=== PATIENT | female | born 1935 | race Caucasian/White ===

== ENCOUNTER 2017-05-13 21:18 | Inpatient (IN) | payer MEDICARE ==
[~2017-05-13] VITALS: Ht 170.2 cm; Wt 73.0 kg
[2017-05-13 21:30] VITALS: BP 129/59; PULSE 90; RESP 18; TEMP 99; O2SAT 98
[2017-05-13] MEDS ORDERED: SODIUM CHLOR 0.9% 1000 ML INJ 1,000 ML IV SCH (21:38)
[2017-05-13] MEDS ORDERED: PANTOPRAZOLE INJ 80 MG in SODIUM CHLORIDE 0.9% INJ 35 ML IV ONE (21:38)
[2017-05-13] MEDS ORDERED: SODIUM CHLORIDE 0.9% FLUSH 10 ML FLUSH IVF PRN (21:45)
--- NOTE | 2017-05-13 21:57 | PD ---
HPI Chief Complaint: GI Complaint Time Seen by Provider: 21:38 Travel History International Travel<30 days: No Contact w/Intl Traveler<30days: No Traveled to known affect area: No History of Present Illness HPI Thin 81 year-old woman who presents from [facility] rehabilitation for dark stools, elevated INR, and low H&H. She is on Coumadin apparently for DVT. Her INR is 4.57 yesterday at 5:30 AM, 3.9 the day before. Hemoglobin was 12.6 on 05/10, 7.7 today. Patient denies any history of GI bleed. Review of records shows that she is on naproxen 250 twice a day, that she is also on fludrocortisone. EMS reports dark black stools per the prison staff. Patient denies any other complaints. History Past Medical History Narrative Medical Hyperlipidemia Major depression Polyneuropathy Stress incontinence Cellulitis Hypertension Heart failure Hypothyroidism Social History Tobacco Use: No Allergies-Medications (Allergen,Severity, Reaction): Coded Allergies: No Known Allergies (Verified Allergy, Unknown, 05/13/17) Reported Meds & Prescriptions Reported Meds & Active Scripts Active Review of Systems ROS Limitations: Clinical Condition Physical Exam Narrative GENERAL: 81 year-old woman, pale appearing, nontoxic. SKIN: Little bit pale. Some bruising to the left upper thigh. Little bit of warmth to the left leg. EYES: Pupils equal and round. No scleral icterus. No injection or drainage. ENT: No nasal bleeding or discharge. Mucous membranes pink and moist. NECK: Trachea midline. No JVD. CARDIOVASCULAR: Heart rates over rapid. Soft blowing murmur. RESPIRATORY: No accessory muscle use. Clear to auscultation. Breath sounds equal bilaterally. GASTROINTESTINAL: Abdomen soft, non-tender, nondistended. Hepatic and splenic margins not palpable. MUSCULOSKELETAL: No obvious deformities. No edema. NEUROLOGICAL: Awake and alert. No obvious cranial nerve deficits. Motor grossly within normal limits. Normal speech. Data Data Last Documented VS Vital Signs Date Time Temp Pulse Resp B/P (MAP) Pulse Ox O2 Delivery O2 Flow Rate FiO2 05/13/17 23:19 101 18 129/51 (77) 95 Room Air 05/13/17 21:30 99.0 Orders Orders Complete Blood Count With Diff (05/13/17 21:38) Comprehensive Metabolic Panel (05/13/17 21:38) Lipase (9/16/17 21:38) Prothrombin Time / Inr (Pt) (05/13/17 21:38) Act Partial Throm Time (Ptt) (05/13/17 21:38) Type And Screen (05/13/17 21:38) Ecg Monitoring (05/13/17 21:38) Iv Access Insert/Monitor (05/13/17 21:38) Oximetry (05/13/17 21:38) Sodium Chlor 0.9% 1000 Ml Inj (Ns 1000 M (05/13/17 21:38) Sodium Chloride 0.9% Flush (Ns Flush) (05/13/17 21:45) Sodium Chloride 0.9... W/Pantoprazole In (05/13/17 21:38) Sodium Chloride 0.9... W/Pantoprazole In (05/13/17 21:38) Phytonadione Inj (Vitamin K Inj) (05/13/17 22:00) Red Blood Cells (Rbc) (05/13/17 21:57) Fresh Frozen Plasma (Ffp) (05/13/17 21:57) Iron Sucrose Inj (Venofer Inj) (05/14/17 09:00) Peg (High)/E-Lyte Liq (Colyte Liq) (05/13/17 23:00) NPO (05/13/17 22:53) Code Status (05/13/17 23:12) Admit To Inpatient (05/13/17 ) Vital Signs (Adult) Q4H (05/13/17 23:14) Activity Oob With Assistance (05/13/17 23:14) Mangle Tender / Telemetry .CONTINUOUS (05/13/17 23:14) Intake + Output TIO.QSHIFT (05/13/17 23:14) Diet Clear Liquid (05/14/17 Breakfast) Sodium Chloride 0.9% Flush (Ns Flush) (05/13/17 23:15) Sodium Chloride 0.9% Flush (Ns Flush) (05/14/17 09:00) Ondansetron Inj (Zofran Inj) (05/13/17 23:15) Comprehensive Metabolic Panel (05/14/17 06:00) Complete Blood Count With Diff (05/14/17 06:00) Prothrombin Time / Inr (Pt) (05/14/17 06:00) Pharmacologic Contraindication (05/13/17 23:14) Acetaminophen (Tylenol) (05/13/17 23:15) Acetamin-Hydrocod 325-5 Mg ([place] 5-325 (05/13/17 23:15) Morphine Inj (Morphine Inj) (05/13/17 23:15) Docusate Sodium-Senna (January-Colace) (05/14/17 09:00) Magnesium Hydroxide Liq (Milk Of Magnesi (05/13/17 23:15) Sennosides (Senokot) (05/13/17 23:15) Bisacodyl Supp (Dulcolax Supp) (05/13/17 23:15) Lactulose Liq (Lactulose Liq) (05/13/17 23:15) Inpatient Certification (05/13/17 ) Admit Order (Ed Use Only) (05/13/17 ) Labs Laboratory Tests Test 05/13/17 22:00 White Blood Count 10.7 TH/MM3 Red Blood Count 2.27 MIL/MM3 Hemoglobin 6.8 GM/DL Hematocrit 20.2 % Mean Corpuscular Volume 88.8 FL Mean Corpuscular Hemoglobin 30.0 PG Mean Corpuscular Hemoglobin Concent 33.8 % Red Cell Distribution Width 14.8 % Platelet Count 231 TH/MM3 Mean Platelet Volume 8.7 FL Neutrophils (%) (Auto) 78.8 % Lymphocytes (%) (Auto) 11.2 % Monocytes (%) (Auto) 8.9 % Eosinophils (%) (Auto) 0.9 % Basophils (%) (Auto) 0.2 % Neutrophils # (Auto) 8.4 TH/MM3 Lymphocytes # (Auto) 1.2 TH/MM3 Monocytes # (Auto) 0.9 TH/MM3 Eosinophils # (Auto) 0.1 TH/MM3 Basophils # (Auto) 0.0 TH/MM3 CBC Comment AUTO DIFF Differential Total Cells Counted 100 Neutrophils % (Manual) 71 % Band Neutrophils % 17 % Lymphocytes % 8 % Monocytes % 3 % Basophils % 1 % Neutrophils # (Manual) 9.4 TH/MM3 Differential Comment FINAL DIFF MANUAL Platelet Estimate NORMAL Platelet Morphology Comment NORMAL Prothrombin Time 22.1 SEC Prothromb Time International Ratio 1.9 RATIO Activated Partial Thromboplast Time 41.8 SEC Blood Urea Nitrogen 57 MG/DL Creatinine 2.01 MG/DL Random Glucose 108 MG/DL Total Protein 5.9 GM/DL Albumin 2.5 GM/DL Calcium Level 8.2 MG/DL Alkaline Phosphatase 115 U/L Aspartate Amino Transf (AST/SGOT) 53 U/L Alanine Aminotransferase (ALT/SGPT) 33 U/L Total Bilirubin 0.9 MG/DL Sodium Level 135 MEQ/L Potassium Level 4.0 MEQ/L Chloride Level 101 MEQ/L Carbon Dioxide Level 23.6 MEQ/L Anion Gap 10 MEQ/L Estimat Glomerular Filtration Rate 24 ML/MIN Lipase 127 U/L [facility] Medical Decision Making Medical Screen Exam Complete: Yes Emergency Medical Condition: Yes Interpretation(s) My review of EKG: Normal sinus rhythm at a rate of 92, normal axis, normal intervals, some lateral T-wave inversions and mild ST depressions, some inferior T-wave flattening. Possibly ischemic. No old for comparison. LABS: CBC remarkable for marked anemia, moderate bandemia CMP elevated BUN and creatinine Lipase normal INR 1.9 Differential Diagnosis GI bleed, coagulopathy, injury, gastritis, other Narrative Course Medical decision making INITIAL: 81 year-old woman presents emergency Department with dark stools increased INR and low H&H. Dropped off for 5. past 2-3 days. Stools are guaiac positive now. Light brown in color. She is on steroids and NSAIDs. Likely gastritis. We will give vitamin K. Eyes patient specifically if we thought she needed blood products in order to prevent her from dying if she would accept him and she said no. EMS reports that her is on his way in december want blood products. We'll talk to them both together when they get here. We'll type and screen for now. FINAL: 81-year-old woman with significant anemia, evidence of GI bleed. Patient is Adventist I confirmed with both her and her that even in the event of life-threatening bleeding would not want to receive 1 products. We gave her iron, vitamin K, PPI bolus and drip. Spoke with GI. We' ll like to do endoscopy immediately in the morning. We'll give her GoLYTELY. Spoke with Dr. Mann, will admit patient to the ICU. Patient is DNR. Critical Care Narrative Aggregate critical care time was 25 minutes. Time to perform other separately billable procedures was not included in the critical care time. My time did not include minutes spent treating any other patients simultaneously or on activities that did not directly contribute to the patient's treatment. The services I provided to this patient were to treat and/or prevent clinically significant deterioration that could result in: , bleed, anemia, and increased morbidity I provided critical care services requiring my management, as noted below: Chart data review, documentation time, medication orders and management, vital sign assessments/reviewing monitor data, ordering and reviewing lab tests, ordering and interpreting/reviewing x-rays and diagnostic studies, care of the patient and discussion of the patient with the admitting physicians. Diagnosis Primary Impression: Anemia Additional Impression: GI bleed Saeid Jerez MD May 13, 2017 21:57
[2017-05-13 22:00] VITALS: BP 108/51; PULSE 86; RESP 18; O2SAT 96
[2017-05-13] MEDS ORDERED: PHYTONADIONE INJ 10 MG in SODIUM CHLORIDE 0.9% INJ 50 ML IV ONE (22:00)
[2017-05-13 22:19] LABS: AUTOMATED NEUTROPHIL # 8.4 TH/MM3 (1.8-7.7); BASOPHIL % 0.2 % (0.0-2.0); EOSINOPHIL # 0.1 TH/MM3 (0-0.4); EOSINOPHIL % 0.9 % (0.0-4.0); LYMPH % 11.2 % (9.0-44.0); LYMPHOCYTE # 1.2 TH/MM3 (1.0-4.8); MEAN CELL VOLUME 88.8 FL (80.0-100.0); MEAN CORPUSCULAR HGB CONC 33.8 % (32.0-36.0); MONO % 8.9 % (0.0-8.0); NEUT % 78.8 % (16.0-70.0); PLATELET COUNT 231 TH/MM3 (150-450); RED BLOOD COUNT 2.27 MIL/MM3 (4.00-5.30); RED CELL DISTRIBUTION WIDTH 14.8 % (11.6-17.2); WHITE BLOOD COUNT 10.7 TH/MM3 (4.0-11.0)
[2017-05-13 22:28] LABS: APTT (PATIENT) 41.8 SEC (24.3-30.1); INTERNATIONAL NORMALIZED RATIO 1.9 RATIO; PROTHROMBIN TIME - PATIENT 22.1 SEC (9.8-11.6)
[2017-05-13 22:29] LABS: HEMATOCRIT 20.2 % (35.0-46.0); HEMO FLAGS AUTO DIFF
[2017-05-13 22:41] LABS: ALT (GPT) 33 U/L (10-53); ANION GAP 10 MEQ/L (5-15); AST (GOT) 53 U/L (15-37); BICARBONATE 23.6 MEQ/L (21.0-32.0); BLOOD UREA NITROGEN 57 MG/DL (7-18); CHLORIDE 101 MEQ/L (98-107); GLOMERULAR FILTRATION RATE 24 ML/MIN (>89); SODIUM (NA) 135 MEQ/L (136-145)
[2017-05-13 22:44] LABS: ALKALINE PHOSPHATASE 115 U/L (45-117); TOTAL BILIRUBIN ADULT 0.9 MG/DL (0.2-1.0)
[2017-05-13] MEDS ORDERED: PEG (High)/E-LYTE SOLN 4000 ML BTL PO ONE (23:00)
[2017-05-13] MEDS ORDERED: MAGNESIUM HYDROXIDE SUSP 30 ML CUP PO PRN (23:15)
[2017-05-13] MEDS ORDERED: BISACODYL 10 MG SUPP RECTAL PRN (23:15)
[2017-05-13] MEDS ORDERED: LACTULOSE SYRUP 20 GM/30 ML CUP PO PRN (23:15)
[2017-05-13] MEDS ORDERED: SODIUM CHLORIDE 0.9% FLUSH 10 ML FLUSH IV FLUSH PRN (23:15)
[2017-05-13] MEDS ORDERED: SENNOSIDES 8.6 MG TAB PO PRN (23:15)
[2017-05-13] MEDS ORDERED: ACETAMINOPHEN 325 MG TAB PO PRN (23:15)
--- NOTE | 2017-05-13 23:16 | HHI.HP ---
[facility] [place] [facility] Primary Care Physician Unknown Admission Diagnosis Diagnoses: (1) GI bleed Diagnosis: Principal (2) Anemia Diagnosis: Principal (3) Chronic anticoagulation Diagnosis: Principal (4) Patient is Restoration Diagnosis: Principal (5) SEBASTIAN (acute kidney injury) Diagnosis: Principal (6) DNR (do not resuscitate) Diagnosis: Principal Travel History International Travel<30 Days: No Contact w/Intl Traveler <30 Da: No Traveled to Known Affected Are: No History of Present Illness This is an 84 year old DNR female Restoration w/ a PMH of DVT on Coumadin , HTN and Hyperlipidemia who was sent to the ER from [facility] secondary to elevated INR and low Hemoglobin. INR 05/12/17 4.57, 3.9 on 05/11/17. Hgb 7.7, previously 12.6 on 05/10/17. Hgb currently 6.8. INR 1.9. BP 129/59, HR 90, O2 sat 98% on RA, Temp 99.0. Creatinine 2.01, produces 0.80 on 03/15/17. GI consulted by ER physician, plan is for EGD/Colonoscopy in am. S/p Vitamin K in ER. Pt confirms she does not want transfusion of blood products. Review of Systems Except as stated in HPI: all other systems reviewed are Neg ROS: 14 point review of systems otherwise negative. Past Family Social History Past Medical History PMH: DVT on Coumadin, HTN and Hyperlipidemia Past Surgical History PAST SURGICAL HISTORY: CABG, Cardiac Stent, Right Knee Surgery, Tubal Ligation Allergies: Coded Allergies: No Known Allergies (Verified Allergy, Unknown, 05/13/17) Family History PAST FAMILY HISTORY: Reviewed. No h/o DM or CAD Social History PAST SOCIAL HISTORY: Negative for alcohol, tobacco or drugs. Physical Exam Vital Signs Vital Signs Date Time Temp Pulse Resp B/P (MAP) Pulse Ox O2 Delivery O2 Flow Rate FiO2 05/13/17 22:00 86 18 108/51 (70) 96 05/13/17 21:30 99.0 90 18 129/59 (82) 98 Physical Exam PE: GENERAL: Pleasant elderly, thin white female in no acute distress. HEENT: PERRLA, EOMI. No scleral icterus or conjunctival pallor. No lid lag or facial droop. +Pallor. CARDIOVASCULAR: Regular rate and rhythm. No obvious murmurs to auscultation. No chest tenderness to palpation. RESPIRATORY: No obvious rhonchi or wheezing. Clear to auscultation. Breath sounds equal bilaterally. GASTROINTESTINAL: Abdomen soft, non-tender, nondistended. BS normal. MUSCULOSKELETAL: Extremities without clubbing, cyanosis, or edema. No obvious deformities. NEUROLOGICAL: Awake, alert. No focal neurologic deficits. Moving both upper and lower extremities spontaneously. Laboratory Laboratory Tests Test 05/13/17 22:00 White Blood Count 10.7 Red Blood Count 2.27 Hemoglobin 6.8 Hematocrit 20.2 Mean Corpuscular Volume 88.8 Mean Corpuscular Hemoglobin 30.0 Mean Corpuscular Hemoglobin Concent 33.8 Red Cell Distribution Width 14.8 Platelet Count 231 Mean Platelet Volume 8.7 Neutrophils (%) (Auto) 78.8 Lymphocytes (%) (Auto) 11.2 Monocytes (%) (Auto) 8.9 Eosinophils (%) (Auto) 0.9 Basophils (%) (Auto) 0.2 Neutrophils # (Auto) 8.4 Lymphocytes # (Auto) 1.2 Monocytes # (Auto) 0.9 Eosinophils # (Auto) 0.1 Basophils # (Auto) 0.0 CBC Comment AUTO DIFF Prothrombin Time 22.1 Prothromb Time International Ratio 1.9 Activated Partial Thromboplast Time 41.8 Blood Urea Nitrogen 57 Creatinine 2.01 Random Glucose 108 Total Protein 5.9 Albumin 2.5 Calcium Level 8.2 Alkaline Phosphatase 115 Aspartate Amino Transf (AST/SGOT) 53 Alanine Aminotransferase (ALT/SGPT) 33 Total Bilirubin 0.9 Sodium Level 135 Potassium Level 4.0 Chloride Level 101 Carbon Dioxide Level 23.6 Anion Gap 10 Estimat Glomerular Filtration Rate 24 Lipase 127 Result Diagram: 05/13/17219905/13/172199 Caprini VTE Risk Assessment Caprini VTE Risk Assessment: No/Low Risk (score <= 1) VTE Pharm Contraindication: Active bleeding Caprini Risk Assessment Model Point Value = 1 Point Value = 2 Point Value = 3 Point Value = 5 Age 41-60 Minor surgery BMI > 25 kg/m2 Swollen legs Varicose veins or History of unexplained or recurrent spontaneous Oral contraceptives or hormone replacement Sepsis (< 1 month) Serious lung disease, including pneumonia (< 1 month) Abnormal pulmonary function Acute myocardial infarction Congestive heart failure (< 1 month) History of inflammatory bowel disease Medical patient at bed rest Age 61-74 Arthroscopic surgery Major open surgery (> 45 min) Laparoscopic surgery (> 45 min) Malignancy Confined to bed (> 72 hours) Immobilizing plaster cast Central venous access Age >= 75 History of VTE Family history of VTE Factor V Leiden Prothrombin [id number] Lupus anticoagulant Anticardiolipin antibodies Elevated serum homocysteine Heparin-induced thrombocytopenia Other congenital or acquired thrombophilia Stroke (< 1 month) Elective arthroplasty Hip, pelvis, or leg fracture Acute spinal cord injury (< 1 month) Prophylaxis Regimen Total Risk Factor Score Risk Level Prophylaxis Regimen 0-1 Low Early ambulation 2 Moderate Order ONE of the following: *Sequential Compression Device (SCD) *Heparin 5000 units SQ BID 3-4 Higher Order ONE of the following medications: *Heparin 5000 units SQ TID *Enoxaparin/Lovenox 40 mg SQ daily (WT < 150 kg, CrCl > 30 mL/min) *Enoxaparin/Lovenox 30 mg SQ daily (WT < 150 kg, CrCl > 10-29 mL/min) *Enoxaparin/Lovenox 30 mg SQ BID (WT < 150 kg, CrCl > 30 mL/min) AND/OR *Sequential Compression Device (SCD) 5 or more Highest Order ONE of the following medications: *Heparin 5000 units SQ TID (Preferred with Epidurals) *Enoxaparin/Lovenox 40 mg SQ daily (WT < 150 kg, CrCl > 30 mL/min) *Enoxaparin/Lovenox 30 mg SQ daily (WT < 150 kg, CrCl > 10-29 mL/min) *Enoxaparin/Lovenox 30 mg SQ BID (WT < 150 kg, CrCl > 30 mL/min) AND *Sequential Compression Device (SCD) Assessment and Plan Problem List: (1) GI bleed ICD Code: K92.2 - Gastrointestinal hemorrhage, unspecified Status: Acute (2) Anemia ICD Code: D64.9 - Anemia, unspecified Status: Acute (3) Chronic anticoagulation ICD Code: Z79.01 - joint terminal attack controller (current) use of anticoagulants (4) SEBASTIAN (acute kidney injury) ICD Code: N17.9 - Acute kidney failure, unspecified (5) Patient is Restoration ICD Code: Z78.9 - Other specified health status (6) DNR (do not resuscitate) ICD Code: Z66 - Do not resuscitate Assessment and Plan A/P: 1. GI Bleed: Severe. On Coumadin for h/o DVT, INR elevated, Hgb trending down , 7.7 from outpatient labs earlier today, currently Hgb 6.8. On Protonix gtt, will continue. GI Consulted by ER physician, plan is for EGD/Colonoscopy in am , prep to be done tonight. Pt does not want transfusion of blood products if needed. 2. Anemia: Secondary to acute blood loss. Hgb 6.8 at this time. S/p Iron IV in ER as pt declining transfusion. Monitor Hgb/Hct. Limit blood draws as possible 3. Chronic Anticoagulation: h/o DVT on Coumadin, supratherapeutic INR 4.57 and 3.9 on 05/11/17 per records. INR currently 1.9, s/p Vitamin K. Repeat INR in am. Hold Coumadin for active bleeding. 4. SEBASTIAN: Creatinine 2.01, previously 0.80 on 03/15/17. IVF for hydration, repeat labs in a.m. 5. Restoration: Pt confirms she is Jehova's Witness and does not want to receive any form of blood products. 6. DNR: Code Status confirmed, pt DNR. 7. DVT Prophylaxis: Pharmacologic contraindication secondary to active GI Bleed. 8. Social work for d/c planning as needed. 9. Case discussed w/ ER physician at length. Physician Certification 2 Midnight Certification Type: Admission for Inpatient Services Order for Inpatient Services The services are ordered in accordance with Medicare regulations or non- Medicare payer requirements, as applicable. In the case of services not specified as inpatient-only, they are appropriately provided as inpatient services in accordance with the 2-midnight benchmark. Estimated LOS (days): 2 days is the estimated time the patient will need to remain in the hospital, assuming treatment plan goals are met and no additional complications. Post-Hospital Plan: Not yet determined Neha Fernandez MD May 13, 2017 23:16
[2017-05-13 23:19] VITALS: BP 129/51; PULSE 101; RESP 18; O2SAT 95
[2017-05-13 23:19] LABS: BANDS 17 % (0-6); BASOPHILS 1 % (0-2); NEUTROPHIL # MANUAL DIFF 9.4 TH/MM3 (1.8-7.7); POLYS (SEG NEUTROPHILS) 71 % (16-70); WBC DIFF SAMPLE 100
[2017-05-13 23:20] LABS: PLATELET ESTIMATE SMEAR NORMAL (NORMAL); PLATELET MORPHOLOGY NORMAL (NORMAL); SCAN/DIFF FINAL DIFF MANUAL
[2017-05-13] MEDS: PANTOPRAZOLE INJ 80 MG in SODIUM CHLORIDE 0.9% INJ 100 ML IV SCH (23:30)
[2017-05-14] VITALS (13 sets, daily range): BP systolic 89–150; BP diastolic 44–64; PULSE 74–97; RESP 15–28; TEMP 97.8–99; O2SAT 94–100
[2017-05-14] MEDS ORDERED: ESCI10TA PO (00:32)
[2017-05-14] MEDS ORDERED: FURO20TA PO (00:32)
[2017-05-14] MEDS ORDERED: CYCL5TAB PO (00:32)
[2017-05-14] MEDS ORDERED: OXYC-432 PO (00:32)
[2017-05-14] MEDS ORDERED: FLUD.1 PO (00:32)
[2017-05-14] MEDS ORDERED: NAPR250T PO (00:32)
[2017-05-14] MEDS ORDERED: PRAV20TA2 PO (00:32)
[2017-05-14] MEDS ORDERED: LEVO125T4 PO (00:32)
[2017-05-14] MEDS ORDERED: WARF-60 PO (00:32)
[2017-05-14] MEDS ORDERED: DOCU100C PO (00:32)
[2017-05-14] MEDS ORDERED: GABA100C4 PO ×2 (00:32)
[2017-05-14] MEDS ORDERED: WARF-58 PO (00:32)
[2017-05-14] MEDS ORDERED: multivitamin PO (00:32)
[2017-05-14] MEDS ORDERED: PANT40TA3 PO (00:32)
[2017-05-14] MEDS ORDERED: SODIUM CHLOR 0.9% 1000 ML INJ 1,000 ML IV ONE (01:15)
[2017-05-14] MEDS ORDERED: LORazepam 2 MG/ML VIAL IV PUSH ONE (03:30)
[2017-05-14] MEDS ORDERED: SODIUM CHLORID 0.9% 500 ML INJ 500 ML IV ONE (04:00)
[2017-05-14] MEDS: IRON SUCROSE INJ 200 MG in SODIUM CHLORIDE 0.9% INJ 100 ML IV SCH ×2 (04:26→08:32)
[2017-05-14 05:12] LABS: AUTOMATED NEUTROPHIL # 7.9 TH/MM3 (1.8-7.7); BASOPHIL % 0.2 % (0.0-2.0); EOSINOPHIL # 0.1 TH/MM3 (0-0.4); EOSINOPHIL % 1.3 % (0.0-4.0); LYMPH % 12.3 % (9.0-44.0); LYMPHOCYTE # 1.3 TH/MM3 (1.0-4.8); MEAN CELL VOLUME 88.2 FL (80.0-100.0); MEAN CORPUSCULAR HEMOGLOBIN 30.3 PG (27.0-34.0); MEAN CORPUSCULAR HGB CONC 34.4 % (32.0-36.0); MONO % 10.7 % (0.0-8.0); NEUT % 75.5 % (16.0-70.0); PLATELET COUNT 237 TH/MM3 (150-450); RED BLOOD COUNT 2.02 MIL/MM3 (4.00-5.30); RED CELL DISTRIBUTION WIDTH 14.6 % (11.6-17.2); WHITE BLOOD COUNT 10.4 TH/MM3 (4.0-11.0)
[2017-05-14 05:33] LABS: INTERNATIONAL NORMALIZED RATIO 1.3 RATIO; PROTHROMBIN TIME - PATIENT 14.5 SEC (9.8-11.6)
[2017-05-14 05:38] LABS: ANION GAP 10 MEQ/L (5-15); AST (GOT) 48 U/L (15-37); BICARBONATE 23.5 MEQ/L (21.0-32.0); BLOOD UREA NITROGEN 51 MG/DL (7-18); CHLORIDE 103 MEQ/L (98-107); GLOMERULAR FILTRATION RATE 30 ML/MIN (>89); POTASSIUM 3.6 MEQ/L (3.5-5.1); SODIUM (NA) 136 MEQ/L (136-145)
[2017-05-14 05:39] LABS: ALT (GPT) 32 U/L (10-53)
[2017-05-14 05:41] LABS: ALKALINE PHOSPHATASE 118 U/L (45-117); TOTAL BILIRUBIN ADULT 1.1 MG/DL (0.2-1.0)
[2017-05-14 05:43] LABS: HEMO FLAGS DIFF FINAL
[2017-05-14 05:45] LABS: HEMATOCRIT 17.8 % (35.0-46.0)
[2017-05-14] MEDS: PANTOPRAZOLE INJ 80 MG in SODIUM CHLORIDE 0.9% INJ 100 ML IV SCH ×2 (06:05→23:16)
[2017-05-14] MEDS: SODIUM CHLORIDE 0.9% FLUSH 10 ML FLUSH IV FLUSH SCH ×2 (08:33→21:00)
[2017-05-14] MEDS: FLUDROCORTISONE ACETATE 0.1 MG TAB PO SCH (08:33)
[2017-05-14] MEDS: DOCUSATE SODIUM 50 MG/SENNA 8.6 MG TAB PO SCH ×2 (08:33→21:00)
[2017-05-14] MEDS: ESCITALOPRAM OXALATE 10 MG TAB PO SCH (08:33)
[2017-05-14] MEDS ORDERED: IRON SUCROSE INJ 200 MG in SODIUM CHLORIDE 0.9% INJ 100 ML IV SCH (09:00)
--- NOTE | 2017-05-14 10:12 | PD.CONS ---
HPI History of Present Illness This is a 81 year old female who was sent to the hospital from [facility] due to elevated INR, low Hemoglobin, and dark stools. She is a Christianity and has confirmed that she does not want transfusion of blood products. She is s/p vitamin K and iron. PMH significant for DVT on Coumadin, HTN, and HLD. GI was consulted for anemia and Hemoccult positive stools. RN states that she has not noted any dark stools or bright red blood in stools. HH on admission was 6.8/20.2 (05/13) and today is 6.1/17.8. (Shayla Prajapati) PFSH Past Medical History DVT on Coumadin HTN HLD Past Surgical History CABG Cardiac Stent R Knee Surgery Tubal Ligation (Shayla Prajapati) Coded Allergies: No Known Allergies (Verified Allergy, Unknown, 05/13/17) Medications Current Medications Medications (Trade) Dose Ordered Sig/Marin Route PRN Reason Start Time Stop Time Status Last Admin Dose Admin Sodium Chloride (NS Flush) 2 ml UNSCH PRN IVF FLUSH AFTER USING IV ACCESS 05/13/17 21:45 Pantoprazole Sodium 80 mg/ Sodium Chloride 100 ml @ 10 mls/hr Q10H IV 05/13/17 21:38 05/14/17 06:05 Sodium Chloride (NS Flush) 2 ml UNSCH PRN IV FLUSH FLUSH AFTER USING IV ACCESS 05/13/17 23:15 Sodium Chloride (NS Flush) 2 ml BID IV FLUSH 05/14/17 09:00 05/14/17 08:33 Ondansetron HCl (Zofran Inj) 4 mg Q6H PRN IVP NAUSEA OR VOMITING 05/13/17 23:15 Acetaminophen (Tylenol) 650 mg Q6H PRN PO FEVER/PAIN SCALE 1 TO 2 05/13/17 23:15 Acetaminophen/ Hydrocodone Bitart (Elcho 5-325 Mg) 1 tab Q4H PRN PO PAIN SCALE 3 TO 5 05/13/17 23:15 Morphine Sulfate (Morphine Inj) 2 mg Q3H PRN IV PUSH Pain 6-10 05/13/17 23:15 Senna/Docusate Sodium (January-Colace) 1 tab BID PO 05/14/17 09:00 Magnesium Hydroxide (Milk Of Magnesia Liq) 30 ml Q12H PRN PO MILD - MODERATE CONSTIPATION 05/13/17 23:15 Sennosides (Senokot) 17.2 mg Q12H PRN PO MODERATE - SEVERE CONSTIPATION 05/13/17 23:15 Bisacodyl (Dulcolax Supp) 10 mg DAILY PRN RECTAL SEVERE CONSITIPATION 05/13/17 23:15 Lactulose (Lactulose Liq) 30 ml DAILY PRN PO SEVERE CONSITIPATION 05/13/17 23:15 Sodium Chloride 1,000 ml @ 100 mls/hr Q10H ONCE IV 05/14/17 01:15 05/14/17 11:14 05/14/17 03:54 Escitalopram Oxalate (Lexapro) 10 mg DAILY PO 05/14/17 09:00 Fludrocortisone Acetate (Florinef) 0.1 mg DAILY PO 05/14/17 09:00 Iron Sucrose 200 mg/Sodium Chloride 110 ml @ 110 mls/hr DAILY IV 05/14/17 04:00 05/15/17 09:01 05/14/17 08:32 Family History Unable to assess. Social History PER EMR ETOH: None Tobacco: None Illicit Drugs: None (Shayla Prajapati) Review of Systems ROS Unable to assess (Shayla Prajapati) GI Exam Vitals I&O Vital Signs Date Time Temp Pulse Resp B/P (MAP) Pulse Ox O2 Delivery O2 Flow Rate FiO2 05/14/17 08:00 98.2 76 20 102/50 (67) 98 05/14/17 07:43 98 Nasal Cannula 2.00 05/14/17 07:00 98 Room Air 05/14/17 06:00 79 05/14/17 04:00 82 05/14/17 04:00 98.5 82 15 91/44 (60) 100 05/14/17 02:00 95 05/14/17 02:00 99.0 95 19 89/45 (60) 94 05/14/17 01:14 05/14/17 01:13 97 18 136/60 (85) 95 Room Air 05/13/17 23:19 101 18 129/51 (77) 95 Room Air 05/13/17 22:00 86 18 108/51 (70) 96 05/13/17 21:30 99.0 90 18 129/59 (82) 98 I/O 05/13/17 05/13/17 05/13/17 05/14/17 05/14/17 05/14/17 07:00 15:00 23:00 07:00 15:00 23:00 Intake Total 1035 ml 3471 ml Output Total 352 ml Balance 1035 ml 3119 ml Intake Oral 2000 ml IV Total 1035 ml 1471 ml Output Stool Total 352 ml # Voids 1 # Bowel Movements 1 Laboratory Test 05/13/17 22:00 05/14/17 04:59 White Blood Count 10.7 TH/MM3 10.4 TH/MM3 Red Blood Count 2.27 MIL/MM3 2.02 MIL/MM3 Hemoglobin 6.8 GM/DL 6.1 GM/DL Hematocrit 20.2 % 17.8 % Mean Corpuscular Volume 88.8 FL 88.2 FL Mean Corpuscular Hemoglobin 30.0 PG 30.3 PG Mean Corpuscular Hemoglobin Concent 33.8 % 34.4 % Red Cell Distribution Width 14.8 % 14.6 % Platelet Count 231 TH/MM3 237 TH/MM3 Mean Platelet Volume 8.7 FL 8.0 FL Neutrophils (%) (Auto) 78.8 % 75.5 % Lymphocytes (%) (Auto) 11.2 % 12.3 % Monocytes (%) (Auto) 8.9 % 10.7 % Eosinophils (%) (Auto) 0.9 % 1.3 % Basophils (%) (Auto) 0.2 % 0.2 % Neutrophils # (Auto) 8.4 TH/MM3 7.9 TH/MM3 Lymphocytes # (Auto) 1.2 TH/MM3 1.3 TH/MM3 Monocytes # (Auto) 0.9 TH/MM3 1.1 TH/MM3 Eosinophils # (Auto) 0.1 TH/MM3 0.1 TH/MM3 Basophils # (Auto) 0.0 TH/MM3 0.0 TH/MM3 CBC Comment AUTO DIFF DIFF FINAL Differential Total Cells Counted 100 Neutrophils % (Manual) 71 % Band Neutrophils % 17 % Lymphocytes % 8 % Monocytes % 3 % Basophils % 1 % Neutrophils # (Manual) 9.4 TH/MM3 Differential Comment FINAL DIFF MANUAL Platelet Estimate NORMAL Platelet Morphology Comment NORMAL Prothrombin Time 22.1 SEC 14.5 SEC Prothromb Time International Ratio 1.9 RATIO 1.3 RATIO Activated Partial Thromboplast Time 41.8 SEC Blood Urea Nitrogen 57 MG/DL 51 MG/DL Creatinine 2.01 MG/DL 1.66 MG/DL Random Glucose 108 MG/DL 103 MG/DL Total Protein 5.9 GM/DL 5.7 GM/DL Albumin 2.5 GM/DL 2.3 GM/DL Calcium Level 8.2 MG/DL 7.9 MG/DL Alkaline Phosphatase 115 U/L 118 U/L Aspartate Amino Transf (AST/SGOT) 53 U/L 48 U/L Alanine Aminotransferase (ALT/SGPT) 33 U/L 32 U/L Total Bilirubin 0.9 MG/DL 1.1 MG/DL Sodium Level 135 MEQ/L 136 MEQ/L Potassium Level 4.0 MEQ/L 3.6 MEQ/L Chloride Level 101 MEQ/L 103 MEQ/L Carbon Dioxide Level 23.6 MEQ/L 23.5 MEQ/L Anion Gap 10 MEQ/L 10 MEQ/L Estimat Glomerular Filtration Rate 24 ML/MIN 30 ML/MIN Lipase 127 U/L Physical Examination HEENT: PERRLA; normocephalic; atraumatic; no jaundice. NECK: Neck is supple CHEST: CTA CARDIAC: RRR with no murmur gallop or rubs. ABDOMEN: Soft, nondistended, nontender; no hepatosplenomegaly; bowel sounds are present. EXTREMITIES: No clubbing, cyanosis, or edema. SKIN: Normal; no rash; no jaundice. FRAUD REPRESENTATIVE: Awake and alert. Forgetful. (Shayla Prajapati) Assessment and Plan Plan ASSESSMENT: - GIB, Hemoccult positive stools. Stool in rectal bag noted to be liquid brown today. HH on admission was 6.8/20.2 (05/13) and today is 6.1/17.8. She is a Christianity and has confirmed that she does not want transfusion of blood products. She is s/p vitamin K and iron. INR 1.3 today. Patient completed bowel prep last night. PLAN: - EGD/Colonoscopy today - NPO - Monitor HH - Supportive care - Further recommendations to follow based on results of above. Patient seen and examined by Dr. Randall and myself and this note is written on his behalf. (Shayla Prajapati) Physician Comments Seen and examined with PLANT NURSERY WORKER, No active bleeding. Egs/colonoscopy planned for today. No blood products she is a jehovahs witness. Thank you. (Mariya Randall MD) Shayla Prajapati May 14, 2017 10:12 Mariya Randall MD May 14, 2017 11:48
[2017-05-14 10:38] LABS: TRANSFERRIN IRON PROFILE 107 MG/DL (200-360)
[2017-05-14 10:41] LABS: FERRITIN 228 NG/ML (8-252)
--- NOTE | 2017-05-14 12:51 | EKG ---
Date Performed: 05/13/2017 Time Performed: 21:40:39 PTAGE: 81 years EKG: Sinus rhythm WITH FIRST DEGREE AV BLOCK ST/T-WAVE ABNORMALITY, CONSIDER ANTEROLATERAL ISCHEMIA NONSPECIFIC INFERI OR ST/T-WAVE ABNORMALITY ABNORMAL ECG NO PREVIOUS TRACING DOCTOR: Marlon Toledo Interpretating Date/Time 05/14/2017 12:50:05
--- NOTE | 2017-05-14 13:44 | MB ---
cc: CHADWICK MELÉNDEZ M.D. DATE OF CONSULTATION: 05/14/2017. REASON FOR CONSULTATION: Hematology was consulted to render an opinion on a patient with anemia and GI bleeding. ATTENDING PHYSICIAN: Dr. Fernandez. HISTORY OF PRESENT ILLNESS: The patient is an 81-year-old female Rastafari brought into to the emergency room with a drop in hemoglobin as well as elevated INR. The patient is confused and history is obtained from her at the bedside. The had arthroscopic knee surgery about four months ago and after that she was noted to have right leg deep venous thrombosis. She was then started on Coumadin. The patient could not tell me if she ever has had melanotic stool. She was noted to have decreasing hemoglobin and was brought into the hospital. Her hemoglobin was reportedly 12.6 on May 10 but dropped down to 7.7. INR was 4.5 when she first presented. She was given vitamin K. She denies any chest pain or palpitations. Denies any shortness of breath or cough. She is just tired. Denies any nausea or vomiting, abdominal pain. PAST MEDICAL HISTORY: 1. Recent right lower extremity deep venous thrombosis. 2. Hypertension. 3. Hyperlipidemia. PAST SURGICAL HISTORY: 1. Coronary artery bypass graft surgery. 2. Arthroscopic right knee surgery. 3. Coronary stent placement. 4. Bilateral tubal ligation. FAMILY HISTORY: Noncontributory. SOCIAL HISTORY: No tobacco or alcohol use. She is a Rastafari. ALLERGIES: NO KNOWN DRUG ALLERGIES. CURRENT MEDICATIONS: 1. Venofer. 2. Lexapro. 3. Florinef. 4. Pantoprazole. REVIEW OF SYSTEMS: CONSTITUTIONAL: Negative. EYES: Negative. ENT: Negative. CARDIOVASCULAR: Denies any chest pressure or palpitations. RESPIRATORY: Denies any shortness of breath or cough. GI: As above. : Denies any dysuria or hematuria. MUSCULOSKELETAL: Negative. HEMATOLOGIC: As above. ENDOCRINE: Negative. DERMATOLOGIC: Negative. PSYCHIATRIC: As above. NEUROLOGIC: Negative. PHYSICAL EXAMINATION: VITAL SIGNS: Temperature 98.2, blood pressure 102/50, 02 saturation 98% on two liters nasal cannula. GENERAL: She is awake and alert. She is not oriented. HEAD, EYES, EARS, NOSE, THROAT: Atraumatic, normocephalic. Pupils equal, round, reactive to light. Extraocular muscles are intact. No scleral icterus. OROPHARYNX: Dry mucosa. No lesions. NECK: No thyromegaly. No palpable mass. LYMPHATIC: No palpable cervical, clavicular, axillary or inguinal lymph nodes. CARDIOVASCULAR: Regular S1-S2. Occasional premature beat. Soft murmur noted. LUNGS: Clear to auscultation bilaterally. ABDOMEN: Abdomen soft and nontender. I could not palpate the liver or spleen. EXTREMITIES: No cyanosis. No clubbing. No significant edema. Ecchymosis in the posterior left thigh. SKIN: No rash or petechiae except for the ecchymosis as above. NEUROLOGIC EXAM: Nonfocal. LABORATORY DATA: Reviewed. ASSESSMENT: 1. Acute anemia. Reportedly her hemoglobin dropped from 12.6 to 7.7 over a few days. She reported melanotic stool. She appeared to have GI bleed likely due to coagulopathy from coumadin. She is a Rastafari and does not want blood transfusion. She was started on Venofer infusion. I will start her on Procrit. Try to minimize blood draws. She is awaiting further GI workup to look for the source of the bleed. 2. Coagulopathy due to coumadin. She was started on coumadin about four months ago for right lower extremity deep venous thrombosis which occurred after her knee surgery. Due to GI bleed she is not a candidate for anticoagulation at this point until cleared by GI. Monitor closely for recurrent clot. 3. Hypertension, stable. 4. Hyperlipidemia, stable. RECOMMENDATIONS: 1. Start Procrit. 2. I agree with Venofer infusion. 3. Minimize blood draws. 4. Await EGD and colonoscopy. 5. SCDs for DVT prophylaxis and monitor closely for recurrent blood clot. 6. Can consider restarting anticoagulation once cleared by gastroenterology. Thank you Dr. Fernandez for asking me to see this patient. MD MAIKEL Ayers/JCHenry /1:04 PM /1:29 PM LAUREL
[2017-05-14] MEDS ORDERED: PROPOFOL 200 MG/20 ML AMP IV ONE (14:40)
[2017-05-14] MEDS ORDERED: PHENYLEPH/NS 1000 MCG/10 ML SYR IV ONE (14:40)
[2017-05-14] MEDS ORDERED: DO NOT ADM ANY ANTICOAGULANT DRUGS PRN (14:47)
--- NOTE | 2017-05-14 14:47 | GIPROC ---
[facility] [address] [facility]. [facility], [address] EGD PROCEDURE REPORT EXAM DATE: 05/14/2017 PATIENT NAME: Radha Gomez MR #: [id number] BIRTHDATE: 1935 ATTENDING: Mariya Randall MD ORDER #: [id number] BLEACH PACKER: Qi Heck and Nicci Gonzalez STATUS: inpatient INDICATIONS: The patient is a 81 yr old female here for an EGD due to acute post hemorrhagic anemia PROCEDURE PERFORMED: EGD, diagnostic MEDICATIONS: None and Per Anesthesia. TOPICAL ANESTHETIC: CONSENT: The patient understands the risks and benefits of the procedure and understands that these risks include, but are not limited to: sedation, allergic reaction, infection, perforation and/or bleeding. Alternative means of evaluation and treatment include, among others: physical exam, x-rays, and/or surgical intervention. The patient elects to proceed with this endoscopic procedure. medical equipment was checked for proper function. Hand hygiene and appropriate measures for infection prevention was taken. After the risks, benefits and alternatives of the procedure were thoroughly explained, Informed consent was verified, confirmed and timeout was successfully executed by the treatment team. The patient was anesthetized with topical anesthesia and the EC-[id number] (Pedi C) endoscope was introduced through the mouth and advanced to the second portion of the duodenum. Retroflexed views revealed no abnormalities The gastroscope was then slowly withdrawn and removed. ESOPHAGUS: There was LA Class A esophagitis noted. STOMACH: There was erythematous moderate and ulcerative gastritis in the gastric antrum. DUODENUM: The duodenal mucosa appeared normal in the bulb and second portion of the duodenum. ADVERSE EVENTS: There were no complications. IMPRESSIONS: 1. There was LA Class A esophagitis noted 2. There was erythematous gastritis in the gastric antrum 3. Normal duodenal mucosa in the bulb and second portion of the duodenum 4. Retroflexed views revealed no abnormalities RECOMMENDATIONS: 1. Continue PPI 2. Anti-reflux regimen 3. Avoid NSAIDS PATIENT CONDITION: stable DISPOSITION: Inpatient REPEAT EXAM: Return as needed for EGD Mariya Randall MD eSigned: Mariya Randall MD 05/14/2017 2:46 PM cc: PATIENT NAME: Radha Gomez MR#: [id number]
--- NOTE | 2017-05-14 14:50 | GIPROC ---
[facility] [address] [facility]. [facility], [address] COLONOSCOPY PROCEDURE REPORT EXAM DATE: 05/14/2017 PATIENT NAME: Radha Gomez MR #: [id number] BIRTHDATE: 1935 ENDOSCOPIST: Mariya Randall MD ORDER #: [id number] BRICK MOLDER HAND: Qi Heck and Nicci Gonzalez STATUS: inpatient INDICATIONS: The patient is a 81 yr old female here for a colonoscopy due to iron deficiency anemia and hematochezia PROCEDURE PERFORMED: Colonoscopy with ablation Colonoscopy with biopsy MEDICATIONS: None and Per Anesthesia. PREP QUALITY: fair PREP TYPE:GoLytely ESTIMATED BLOOD LOSS: None CONSENT: The patient understands the risks and benefits of the procedure and understands that these risks include, but are not limited to: sedation, allergic reaction, infection, perforation and/or bleeding. Alternative means of evaluation and treatment include, among others: physical exam, x-rays, and/or surgical intervention. The patient elects to proceed with this endoscopic procedure. medical equipment was checked for proper function. Hand hygiene and appropriate measures for infection prevention was taken. After the risks, benefits and alternatives of the procedure were thoroughly explained, Informed consent was verified, confirmed and timeout was successfully executed by the treatment team. A digital exam revealed external hemorrhoids The Pentax EC-[id number] endoscope was introduced through the anus and advanced to the cecum, which was identified by both the appendix and ileocecal valve. The instrument was then slowly withdrawn as the colon was fully examined. COLON FINDINGS: A small circumferential patch of colitis was found in the ascending colon. The mucosa was congested, erythematous and ulcerated. This is consistent with ischemic colitis disease. A biopsy was performed using cold forceps. A polypoid shaped sessile polyp ranging between 3-5mm in size was found in the descending colon. A large sized, 5 x 5cm, circumferential diffuse patch of colitis was found in the sigmoid colon. The mucosa was erythematous, ulcerated, congested and edematous. This is consistent with ischemic colitis disease. A biopsy was performed using cold forceps. Retroflexed views revealed internal hemorrhoids and Retroflexed views revealed medium internal hemorrhoids The scope was then completely withdrawn from the patient and the procedure terminated. PROCEDURE WITHDRAWAL TIME:7minutes ADVERSE EVENTS: There were no complications. IMPRESSIONS: 1. Small circumferential colitis was found in the ascending colon; The mucosa was congested, erythematous and ulcerated; This is consistent with ischemic colitis.; biopsy was performed using cold forceps 2. A sessile polyp ranging between 3-5mm in size was found in the descending colon 3. Large sized, 5 x 5cm, circumferential diffuse colitis was found in the sigmoid colon; The mucosa was erythematous, ulcerated, congested and edematous; This is consistent with ischemic colitis.; biopsy was performed using cold forceps 4. Retroflexed views revealed internal hemorrhoids 5. Retroflexed views revealed medium internal hemorrhoids 6. Revealed external hemorrhoids RECOMMENDATIONS: 1. Await biopsy results. Biopsy results will not be ready for 7-10 days. If you don't hear from us in two weeks, call our office for results. 2. Yearly hemoccult RECALL: Return 4 weeks Colonoscopy, pending biopsy results Mariya Randall MD eSigned: Mariya Randall MD 05/14/2017 2:49 PM cc: PATIENT NAME: Radha Gomez MR#: [id number]
--- NOTE | 2017-05-14 15:50 | HHI.PR ---
Subjective Remarks Patient seen this morning. She is feeling all right. Denies any chest pain or shortness breath. Denies any nausea or vomiting. She denies any observed bleeding. Objective Vital Signs Date Time Temp Pulse Resp B/P (MAP) Pulse Ox O2 Delivery O2 Flow Rate FiO2 05/14/17 15:07 67 16 123/58 (79) 99 Nasal Cannula 4 05/14/17 15:00 70 16 113/64 (80) 97 Nasal Cannula 4 05/14/17 14:45 97.4 72 16 112/54 (73) 98 Nasal Cannula 4 05/14/17 12:00 97.8 74 22 115/59 (77) 98 05/14/17 08:00 98.2 76 20 102/50 (67) 98 05/14/17 07:43 98 Nasal Cannula 2.00 05/14/17 07:00 98 Room Air 05/14/17 06:00 79 05/14/17 04:00 82 05/14/17 04:00 98.5 82 15 91/44 (60) 100 05/14/17 02:00 95 05/14/17 02:00 99.0 95 19 89/45 (60) 94 05/14/17 01:14 05/14/17 01:13 97 18 136/60 (85) 95 Room Air 05/13/17 23:19 101 18 129/51 (77) 95 Room Air 05/13/17 22:00 86 18 108/51 (70) 96 05/13/17 21:30 99.0 90 18 129/59 (82) 98 I/O 05/13/17 05/13/17 05/13/17 05/14/17 05/14/17 05/14/17 07:00 15:00 23:00 07:00 15:00 23:00 Intake Total 1035 ml 3471 ml 500 ml Output Total 352 ml Balance 1035 ml 3119 ml 500 ml Intake Oral 2000 ml IV Total 1035 ml 1471 ml Other 500 ml Output Stool Total 352 ml # Voids 1 # Bowel Movements 1 Result Diagram: 05/14/179 05/14/17 045 Objective Remarks GENERAL: Lying in bed. Appears pale. She is alert and oriented 3. SKIN: Warm and dry. HEAD: Normocephalic. EYES: No scleral icterus. No injection or drainage. NECK: Supple, trachea midline. No JVD. CARDIOVASCULAR: Regular rate and rhythm without murmurs, gallops, or rubs. RESPIRATORY: Breath sounds equal bilaterally. No accessory muscle use. GASTROINTESTINAL: Abdomen soft, non-tender, nondistended. MUSCULOSKELETAL: No cyanosis, or edema. BACK: Nontender without obvious deformity. No CVA tenderness. A/P Assessment and Plan // GI Bleed: Severe. On Coumadin for h/o DVT, INR elevated, Hgb trending down , 7.7 from outpatient labs earlier today, currently Hgb 6.8. On Protonix gtt, will continue. GI Consulted by ER physician, plan is for EGD/Colonoscopy in am , prep to be done tonight. Pt does not want transfusion of blood products if needed. =05/14 Place consult for hematology. Appreciate assistance. Respiratory no ordered. Status post iv iron. Appreciate GI assistance. // Anemia: Secondary to acute blood loss. Hgb 6.8 on admission. S/p Iron IV in ER as pt declining transfusion. Monitor Hgb/Hct. Limit blood draws as possible =05/14 Place consult for hematology. Appreciate assistance. Respiratory no ordered. Status post iv iron. Appreciate GI assistance. // Chronic Anticoagulation: h/o DVT on Coumadin, supratherapeutic INR 4.57 05/12 and 3.9 on 05/11/17 per records. INR currently 1.9, s/p Vitamin K. Repeat INR in am. = 05/14 INR 1.3. Continue to Hold Coumadin for active bleeding. Hematology following. Appreciate assistance. // SEBASTIAN: Creatinine 2.01 on admission, previously 0.80 on 03/15/17. = 05/14. Creatinine 1.66, improved from yesterday. Continue IV fluids. Continue to monitor. // Scientology: Pt confirms she is Jehova's Witness and does not want to receive any form of blood products. // DNR: Code Status confirmed, pt DNR. // DVT Prophylaxis: Pharmacologic contraindication secondary to active GI Bleed. Reid Fernandez MD May 14, 2017 15:50
[2017-05-14] MEDS: EPOETIN ALFA 20,000 UNITS/ML VIAL SQ SCH (17:27)
[2017-05-14 17:47] LABS: RETIC % 2.6 % (0.4-3.0)
[2017-05-14 17:48] LABS: REVIEW FLAG FINAL
[2017-05-14 18:42] LABS: CKMB 5.4 NG/ML (0.5-3.6)
[2017-05-14] MEDS ORDERED: LORazepam 2 MG/ML VIAL IV ONE (19:30)
[2017-05-14] MEDS ORDERED: HALOPERIDOL LACTATE 5 MG/ML AMP IV PUSH ONE (23:15)
[2017-05-15] VITALS (13 sets, daily range): BP systolic 154–180; BP diastolic 64–70; PULSE 70–104; RESP 14–19; TEMP 97.8–98; O2SAT 96–100
[2017-05-15] MEDS: MORPHINE SULFATE 4 MG/ML INJ IV PUSH PRN ×5 (00:46→23:07)
[2017-05-15] MEDS: PANTOPRAZOLE INJ 80 MG in SODIUM CHLORIDE 0.9% INJ 100 ML IV SCH ×2 (03:38→14:05)
[2017-05-15 06:27] LABS: AUTOMATED NEUTROPHIL # 6.1 TH/MM3 (1.8-7.7); BASOPHIL % 0.3 % (0.0-2.0); EOSINOPHIL # 0.2 TH/MM3 (0-0.4); EOSINOPHIL % 2.6 % (0.0-4.0); HEMATOCRIT 24.4 % (35.0-46.0); LYMPH % 17.9 % (9.0-44.0); LYMPHOCYTE # 1.6 TH/MM3 (1.0-4.8); MEAN CELL VOLUME 90.2 FL (80.0-100.0); MEAN CORPUSCULAR HEMOGLOBIN 30.3 PG (27.0-34.0); MEAN CORPUSCULAR HGB CONC 33.6 % (32.0-36.0); MONO % 8.9 % (0.0-8.0); NEUT % 70.3 % (16.0-70.0); PLATELET COUNT 323 TH/MM3 (150-450); RED BLOOD COUNT 2.71 MIL/MM3 (4.00-5.30); RED CELL DISTRIBUTION WIDTH 15.3 % (11.6-17.2); WHITE BLOOD COUNT 8.7 TH/MM3 (4.0-11.0)
[2017-05-15 06:28] LABS: HEMO FLAGS AUTO DIFF
[2017-05-15 07:06] LABS: BICARBONATE 23.3 MEQ/L (21.0-32.0); MAGNESIUM 2.3 MG/DL (1.5-2.5); POTASSIUM 3.6 MEQ/L (3.5-5.1)
[2017-05-15 08:06] LABS: BANDS 12 % (0-6); BASOPHILS 1 % (0-2); CORRECTED NUCLEATED RBC 1 /100 WBC (0-0); EOSINOPHILS 3 % (0-4); METAMYELOCYTES 1 % (0-1); MYELOCYTES 2 % (0-0); NEUTROPHIL # MANUAL DIFF 6.4 TH/MM3 (1.8-7.7); POLYS (SEG NEUTROPHILS) 58 % (16-70); WBC DIFF SAMPLE 100
[2017-05-15 08:07] LABS: SCAN/DIFF FINAL DIFF MANUAL
[2017-05-15] MEDS: DOCUSATE SODIUM 50 MG/SENNA 8.6 MG TAB PO SCH ×2 (09:00→19:59)
[2017-05-15] MEDS: ESCITALOPRAM OXALATE 10 MG TAB PO SCH (09:00)
[2017-05-15] MEDS: FLUDROCORTISONE ACETATE 0.1 MG TAB PO SCH (09:00)
--- NOTE | 2017-05-15 10:26 | HHI.GIFU ---
Subjective Remarks Confused in restraints. Denies abdominal pain. Denies any bowel movements/gi bleeding. D/W nurse- no further bleeding overnight or this shift. (Hellen Morley) Objective Vitals I&O Vital Signs Date Time Temp Pulse Resp B/P (MAP) Pulse Ox O2 Delivery O2 Flow Rate FiO2 05/15/17 07:48 99 Nasal Cannula 2.00 05/15/17 06:00 104 05/15/17 04:00 78 05/15/17 02:00 74 05/15/17 00:51 25 05/15/17 00:00 70 05/14/17 22:00 87 05/14/17 20:00 86 05/14/17 19:00 92 Room Air 05/14/17 18:00 97 05/14/17 16:00 79 05/14/17 16:00 98.0 76 28 150/64 (92) 98 05/14/17 15:07 67 16 123/58 (79) 99 Nasal Cannula 4 05/14/17 15:00 70 16 113/64 (80) 97 Nasal Cannula 4 05/14/17 14:45 97.4 72 16 112/54 (73) 98 Nasal Cannula 4 05/14/17 14:00 85 05/14/17 12:00 97.8 74 22 115/59 (77) 98 05/14/17 12:00 77 I/O 05/14/17 05/14/17 05/14/17 05/15/17 05/15/17 05/15/17 07:00 15:00 23:00 07:00 15:00 23:00 Intake Total 3471 ml 500 ml 1699 ml 50 ml Output Total 352 ml Balance 3119 ml 500 ml 1699 ml 50 ml Intake Oral 2000 ml 240 ml IV Total 1471 ml 1371 ml 50 ml Other 500 ml 88 ml Output Stool Total 352 ml # Voids 1 10 5 # Bowel Movements 1 8 Laboratory Laboratory Tests Test 05/15/17 06:14 White Blood Count 8.7 Red Blood Count 2.71 Hemoglobin 8.2 Hematocrit 24.4 Mean Corpuscular Volume 90.2 Mean Corpuscular Hemoglobin 30.3 Mean Corpuscular Hemoglobin Concent 33.6 Red Cell Distribution Width 15.3 Platelet Count 323 Mean Platelet Volume 7.7 Neutrophils (%) (Auto) 70.3 Lymphocytes (%) (Auto) 17.9 Monocytes (%) (Auto) 8.9 Eosinophils (%) (Auto) 2.6 Basophils (%) (Auto) 0.3 Neutrophils # (Auto) 6.1 Lymphocytes # (Auto) 1.6 Monocytes # (Auto) 0.8 Eosinophils # (Auto) 0.2 Basophils # (Auto) 0.0 CBC Comment AUTO DIFF Differential Total Cells Counted 100 Neutrophils % (Manual) 58 Band Neutrophils % 12 Lymphocytes % 13 Monocytes % 10 Eosinophils % 3 Basophils % 1 Neutrophils # (Manual) 6.4 Metamyelocytes 1 Myelocytes 2 Nucleated Red Blood Cells 1 Differential Comment FINAL DIFF MANUAL Blood Urea Nitrogen 29 Creatinine 1.01 Random Glucose 84 Albumin 2.6 Calcium Level 8.7 Phosphorus Level 1.6 Magnesium Level 2.3 Sodium Level 142 Potassium Level 3.6 Chloride Level 110 Carbon Dioxide Level 23.3 Anion Gap 9 Estimat Glomerular Filtration Rate 52 Physical Exam HEENT: Normocephalic; atraumatic; no jaundice CHEST: Resp. even/mildly labored. Expiratory wheezing CARDIAC: RRR ABDOMEN: Soft, nondistended, nontender; no hepatosplenomegaly; bowel sounds are present in all four quadrants. EXTREMITIES: No clubbing, cyanosis, or edema. SKIN: Normal; no rash; no jaundice. HARDWARE INSTALLER: Lethargic, confused (Hellen Morley) Assessment and Plan Plan ASSESSMENT: - GIB, Hemoccult positive stools. HH on admission 6.8/20.2. S/P EGD/ Colonoscopy (05/14/17)----> 1. There was LA Class A esophagitis noted 2. There was erythematous gastritis in the gastric antrum 3. Normal duodenal mucosa in the bulb and second portion of the duodenum 4. Retroflexed views revealed no abnormalities 1. Small circumferential colitis was found in the ascending colon; The mucosa was congested, erythematous and ulcerated; This is consistent with ischemic colitis.; biopsy was performed using cold forceps 2. A sessile polyp ranging between 3-5mm in size was found in the descending colon 3. Large sized, 5 x 5cm, circumferential diffuse colitis was found in the sigmoid colon; The mucosa was erythematous, ulcerated, congested and edematous; This is consistent with ischemic colitis. ; biopsy was performed using cold forceps 4. Retroflexed views revealed internal hemorrhoids 5. Retroflexed views revealed medium internal hemorrhoids 6. Revealed external hemorrhoids. Pathology pending. Nurse reports no GI bleeding overnight or this shift. HH 8.2/24.4. Blood pressure stable. Protonix gtt. - Ischemic colitis. No active bleeding. HH stable. Blood pressure stable. - Esophagitis, Gastritis. Protonix gtt - Anemia secondary to acute blood loss. HH on admission was 6.8/20.2. She is a Jehovah Witness. S/P epogen. HH today is 8.2/24.4. - Chronic anticoagulation for hx of DVT (on coumadin at home). Currently on hold because of GI bleeding PLAN: - DANIEL - Await pathology - D/C protonix gtt - Protonix 40mg po daily - Monitor HH - Epogen - Supportive care - Further recommendations to follow based on results of above. - Rpt colonoscopy 4 weeks - PT seen and examined by Dr. Puri and myself and this note is written on his behalf (Hellen Morley) Physician Comments Patient seen and examined Agree with above Monitor labs Continue with current supportive care We will sign off (Lonny Puri MD) Hellen Morley May 15, 2017 10:26 Lonny Puri MD May 15, 2017 22:20
[2017-05-15] MEDS: IRON SUCROSE INJ 200 MG in SODIUM CHLORIDE 0.9% INJ 100 ML IV SCH (10:38)
[2017-05-15] MEDS: SODIUM CHLORIDE 0.9% FLUSH 10 ML FLUSH IV FLUSH SCH ×2 (10:39→19:57)
--- NOTE | 2017-05-15 13:54 | PD.ONC.PN ---
Subjective Subjective Remarks Afebrile overnight. Remains confused. also lethargic as she received morphine a short time before my exam. Nurse noticed hematoma on left thigh/pelvis this morning. unknown etiology/timing. Objective Data Date Time Temp Pulse Resp B/P (MAP) Pulse Ox O2 Delivery O2 Flow Rate FiO2 05/15/17 12:00 98.0 83 14 165/64 (97) 100 05/15/17 12:00 102 05/15/17 10:00 102 05/15/17 08:00 97.8 86 17 154/69 (97) 100 05/15/17 08:00 86 05/15/17 07:48 99 Nasal Cannula 2.00 05/15/17 07:00 100 Nasal Cannula 2.00 05/15/17 06:00 104 05/15/17 04:00 78 05/15/17 02:00 74 05/15/17 00:51 25 05/15/17 00:00 70 05/14/17 22:00 87 05/14/17 20:00 86 05/14/17 19:00 92 Room Air 05/14/17 18:00 97 05/14/17 16:00 79 05/14/17 16:00 98.0 76 28 150/64 (92) 98 05/14/17 15:07 67 16 123/58 (79) 99 Nasal Cannula 4 05/14/17 15:00 70 16 113/64 (80) 97 Nasal Cannula 4 05/14/17 14:45 97.4 72 16 112/54 (73) 98 Nasal Cannula 4 05/14/17 14:00 85 05/15/17 05/15/17 05/15/17 07:00 15:00 23:00 Intake Total 50 ml Balance 50 ml Result Diagram: 05/15/1761305/15/17613 Laboratory Results Laboratory Tests Test 05/15/17 06:14 White Blood Count 8.7 TH/MM3 Red Blood Count 2.71 MIL/MM3 Hemoglobin 8.2 GM/DL Hematocrit 24.4 % Mean Corpuscular Volume 90.2 FL Mean Corpuscular Hemoglobin 30.3 PG Mean Corpuscular Hemoglobin Concent 33.6 % Red Cell Distribution Width 15.3 % Platelet Count 323 TH/MM3 Mean Platelet Volume 7.7 FL Neutrophils (%) (Auto) 70.3 % Lymphocytes (%) (Auto) 17.9 % Monocytes (%) (Auto) 8.9 % Eosinophils (%) (Auto) 2.6 % Basophils (%) (Auto) 0.3 % Neutrophils # (Auto) 6.1 TH/MM3 Lymphocytes # (Auto) 1.6 TH/MM3 Monocytes # (Auto) 0.8 TH/MM3 Eosinophils # (Auto) 0.2 TH/MM3 Basophils # (Auto) 0.0 TH/MM3 CBC Comment AUTO DIFF Differential Total Cells Counted 100 Neutrophils % (Manual) 58 % Band Neutrophils % 12 % Lymphocytes % 13 % Monocytes % 10 % Eosinophils % 3 % Basophils % 1 % Neutrophils # (Manual) 6.4 TH/MM3 Metamyelocytes 1 % Myelocytes 2 % Nucleated Red Blood Cells 1 /100 WBC Differential Comment FINAL DIFF MANUAL Blood Urea Nitrogen 29 MG/DL Creatinine 1.01 MG/DL Random Glucose 84 MG/DL Albumin 2.6 GM/DL Calcium Level 8.7 MG/DL Phosphorus Level 1.6 MG/DL Magnesium Level 2.3 MG/DL Sodium Level 142 MEQ/L Potassium Level 3.6 MEQ/L Chloride Level 110 MEQ/L Carbon Dioxide Level 23.3 MEQ/L Anion Gap 9 MEQ/L Estimat Glomerular Filtration Rate 52 ML/MIN Administered Medications Medications (Trade) Dose Ordered Sig/Marin Route PRN Reason Start Time Stop Time Status Last Admin Dose Admin Pantoprazole Sodium 80 mg/ Sodium Chloride 100 ml @ 10 mls/hr Q10H IV 05/13/17 21:38 05/15/17 03:38 Sodium Chloride (NS Flush) 2 ml BID IV FLUSH 05/14/17 09:00 05/15/17 10:39 Morphine Sulfate (Morphine Inj) 2 mg Q3H PRN IV PUSH Pain 6-10 05/13/17 23:15 05/15/17 10:38 Epoetin Flyod (Epogen Inj) 20,000 units EVERY OTHER DAY SQ 05/14/17 13:15 05/14/17 17:27 Objective Remarks GENERAL: Elderly lethargic female supine in bed sleeping. SKIN: Warm and dry. HEAD: Normocephalic. EYES: No injection or drainage. NECK: Supple, trachea midline. CARDIOVASCULAR: Regular rate and rhythm RESPIRATORY: Breath sounds equal bilaterally. No accessory muscle use. GASTROINTESTINAL: Abdomen soft, non-tender, nondistended. EXTREMITIES: No cyanosis. large hematoma, left thigh/pelvis. NEUROLOGICAL: awakens to sternal rub and quickly falls back asleep. follows some commands. does not answer questions Assessment/Plan Problem List: (1) Normocytic anemia ICD Codes: D64.9 - Anemia, unspecified Plan: --hemoglobin dropped from 12.6 to 7.7 over a few days. --reported melanotic stool. --EGD showed esophagitis/gastritis --also with large hematoma left leg. --is a Taoist and does not want blood transfusion. --on Venofer infusion. --receives Procrit qod (2) Right leg DVT ICD Codes: I82.401 - Acute embolism and thrombosis of unspecified deep veins of right lower extremity Plan: --Due to anemia/bleeding --not a candidate for anticoagulation at this point until cleared by GI. --Monitor closely for recurrent clot. Assessment 81y/o Taoist brought into to the emergency room with a drop in hemoglobin as well as elevated INR. Recent right lower extremity deep venous thrombosis. Hypertension. Hyperlipidemia. Coronary artery bypass graft surgery. Arthroscopic right knee surgery. Coronary stent placement. Bilateral tubal ligation. Plan 1. check CT pelvis and CT left femur 2. hold anticoagulation 3. minimize blood draws 4. continue Venofer, Procrit Attending Statement The exam, history, and the medical decision-making described in the above note were completed with the assistance of the mid-level provider. I reviewed and agree with the findings presented. I attest that I had a [id number] encounter with the patient on the same day, and personally performed and documented my assessment and findings in the medical record. Still confused and agitated. Hgb trended up. No gross GI bleeding noted at this time. Continue venofer and procrit. Minimize blood draw. Lesa Singh May 15, 2017 13:54 Tyrone Lopez MD May 15, 2017 15:46
--- NOTE | 2017-05-15 15:03 | HHI.PR ---
Subjective Remarks Patient seen this morning around 10 AM. Patient with marketed confusion last night after left. Patient denies any pain, however agitated. Discussed with nurse. Will call to see if or other family member can come to help to orientation. Objective Vital Signs Date Time Temp Pulse Resp B/P (MAP) Pulse Ox O2 Delivery O2 Flow Rate FiO2 05/15/17 12:00 98.0 83 14 165/64 (97) 100 05/15/17 12:00 102 05/15/17 10:00 102 05/15/17 08:00 97.8 86 17 154/69 (97) 100 05/15/17 08:00 86 05/15/17 07:48 99 Nasal Cannula 2.00 05/15/17 07:00 100 Nasal Cannula 2.00 05/15/17 06:00 104 05/15/17 04:00 78 05/15/17 02:00 74 05/15/17 00:51 25 05/15/17 00:00 70 05/14/17 22:00 87 05/14/17 20:00 86 05/14/17 19:00 92 Room Air 05/14/17 18:00 97 05/14/17 16:00 79 05/14/17 16:00 98.0 76 28 150/64 (92) 98 05/14/17 15:07 67 16 123/58 (79) 99 Nasal Cannula 4 05/14/17 15:00 70 16 113/64 (80) 97 Nasal Cannula 4 I/O 05/14/17 05/14/17 05/14/17 05/15/17 05/15/17 05/15/17 07:00 15:00 23:00 07:00 15:00 23:00 Intake Total 3471 ml 500 ml 1699 ml 50 ml 210 ml Output Total 352 ml Balance 3119 ml 500 ml 1699 ml 50 ml 210 ml Intake Oral 2000 ml 240 ml IV Total 1471 ml 1371 ml 50 ml 210 ml Other 500 ml 88 ml Output Stool Total 352 ml # Voids 1 10 5 # Bowel Movements 1 8 Result Diagram: 05/15/1761305/15/17613 Objective Remarks GENERAL: Lying in bed. Appears pale. She appears disoriented, agitated. Answers appropriately when she is calm. Moving all extremities. SKIN: Warm and dry. HEAD: Normocephalic. EYES: No scleral icterus. No injection or drainage. NECK: Supple, trachea midline. No JVD. CARDIOVASCULAR: Regular rate and rhythm without murmurs, gallops, or rubs. RESPIRATORY: Breath sounds equal bilaterally. No accessory muscle use. GASTROINTESTINAL: Abdomen soft, non-tender, nondistended. MUSCULOSKELETAL: No cyanosis, or edema. Patient does have ecchymosis of the left inner thigh without any broken skin. BACK: Nontender without obvious deformity. No CVA tenderness. A/P Assessment and Plan 05/15/17======== //Hospital-induced delirium. -Requiring restraints, Haldol last night. We'll order scheduled Seroquel //Anemia. Hemoglobin 8.2 from 6.1 yesterday. Improved. Status post iron and erythropoietin. No acute bleeding found on GI examination. Appreciate hematology and gastroenterology assistance. //Acute kidney injury. Creatinine 1.01 down from 1.66 yesterday. Much improved. //Elevated CK. Likely secondary to soft tissue injury of left thigh. Continue IV fluids. Continue to monitor. CK reordered for today. //Soft tissue injury with ecchymosis of left thigh. No tenderness with hip joint. No broken skin. Continue to monitor. -CT pending. Appreciate hematology assistance. // GI Bleed: Severe. On Coumadin for h/o DVT, INR elevated, Hgb trending down , 7.7 from outpatient labs earlier today, currently Hgb 6.8. On Protonix gtt, will continue. GI Consulted by ER physician, plan is for EGD/Colonoscopy in am , prep to be done tonight. Pt does not want transfusion of blood products if needed. =05/14 Place consult for hematology. Appreciate assistance. Respiratory no ordered. Status post iv iron. Appreciate GI assistance. // Anemia: Secondary to acute blood loss. Hgb 6.8 on admission. S/p Iron IV in ER as pt declining transfusion. Monitor Hgb/Hct. Limit blood draws as possible =05/14 Place consult for hematology. Appreciate assistance. Respiratory no ordered. Status post iv iron. Appreciate GI assistance. // Chronic Anticoagulation: h/o DVT on Coumadin, supratherapeutic INR 4.57 05/12 and 3.9 on 05/11/17 per records. INR currently 1.9, s/p Vitamin K. Repeat INR in am. = 05/14 INR 1.3. Continue to Hold Coumadin for active bleeding. Hematology following. Appreciate assistance. // SEBASTIAN: Creatinine 2.01 on admission, previously 0.80 on 03/15/17. = 05/14. Creatinine 1.66, improved from yesterday. Continue IV fluids. Continue to monitor. // Buddhism: Pt confirms she is [employer]'s [employer] and does not want to receive any form of blood products. // DNR: Code Status confirmed, pt DNR. // DVT Prophylaxis: Pharmacologic contraindication secondary to active GI Bleed. Discharge Planning Transferred to floor. Continue to monitor. Reid Fernandez MD May 15, 2017 15:03
[2017-05-15] MEDS ORDERED: POTASSIUM PHOSPHATE INJ 15 MMOL in SODIUM CHLORIDE 0.9% INJ 150 ML IV ONE (16:00)
--- NOTE | 2017-05-15 16:17 | RADRPT ---
EXAM DATE/TIME: 05/15/2017 15:24 [facility] COMPARISON: No previous studies available for comparison. INDICATIONS : Hematoma. ORAL CONTRAST: No oral contrast ingested. RADIATION DOSE: 22.96 CTDIvol (mGy) MEDICAL HISTORY : Deep venous thrombosis. SURGICAL HISTORY : Tubal ligation. ENCOUNTER: Initial ACUITY: 1 day PAIN SCALE: 7/10 LOCATION: Left pelvis TECHNIQUE: Volumetric scanning of the pelvis was performed. Using automated exposure control and adjustment of the mA and/or kV according to patient size, radiation dose was kept as low as reasonably achievable t o obtain optimal diagnostic quality images. DICOM format image data is available electronically for review and comparison. FINDINGS: There is an iliopsoas hematoma on the left extending over the femoral head down into the left pelvis. This is causing some venous compression. The sella as component measures 5 cm. The iliopsoas component measures 4 cm. This is not associated with the fracture. Pelvis is intact. CONCLUSION: Hematoma as described above beginning in the psoas on the left extending down the iliopsoas into the femur. Xavi Arango MD FACR on May 15, 2017 at 16:13 Board Certified Radiologist. This report was verified electronically.
--- NOTE | 2017-05-15 16:18 | RADRPT ---
EXAM DATE/TIME: 05/15/2017 15:24 [facility] COMPARISON: No previous studies available for comparison. INDICATIONS : Hematoma. RADIATION DOSE: 15.38 CTDIvol (mGy) MEDICAL HISTORY : Deep venous thrombosis. SURGICAL HISTORY : Tubal ligation. ENCOUNTER: Initial ACUITY: 1 day PAIN SCALE: 7/10 LOCATION: Left femur TECHNIQUE: Volumetric scanning of the femur was performed. Using automated exposure control and adjustment of t he mA and/or kV according to patient size, radiation dose was kept as low as reasonably achievable to obtain optimal diagnostic quality images. DICOM format image data is available electronically for review and comparison. FINDINGS: Iliopsoas hematoma extending down the anterior compartment of the thigh into the mid thigh. The gene ralized edema in the left leg. This is not associated with the fracture. This is in the deep compartment anteriorly and displacing artery and vein. CONCLUSION: Iliopsoas hematoma as described above. Xavi Arango MD FACR on May 15, 2017 at 16:16 Board Certified Radiologist. This report was verified electronically.
[2017-05-15 19:52] LABS: PROTHROMBIN TIME - PATIENT 11.2 SEC (9.8-11.6)
[2017-05-15] MEDS: QUEtiapine FUMARATE 25 MG TAB PO SCH (19:59)
[2017-05-15 20:24] LABS: CKMB 2.8 NG/ML (0.5-3.6)
[2017-05-15 23:04] LABS: BLOOD, URINE SMALL (NEG); COMMENT (UR) CATH-CULT NOT IND; CULTURE IF INDICATED CATH CULTURE NOT IND; GLUCOSE,URINE NEG (NEG); KETONE, URINE TRACE mg/dL (NEG); NITRITE,URINE NEG (NEG); PH, URINE 5.5 (5.0-8.5); SQUAMOUS EPITHELIAL CELL URINE <1 /hpf (0-5); URINE COLOR YELLOW (YELLW/STRAW)
[2017-05-16] VITALS (13 sets, daily range): BP systolic 121–170; BP diastolic 60–69; PULSE 70–87; RESP 13–18; TEMP 97.3–98.3; O2SAT 96–100
[2017-05-16] MEDS: PANTOPRAZOLE INJ 80 MG in SODIUM CHLORIDE 0.9% INJ 100 ML IV SCH (00:16)
[2017-05-16] MEDS: LEVOTHYROXINE SODIUM 125 MCG TAB PO SCH (05:45)
[2017-05-16] MEDS: MORPHINE SULFATE 4 MG/ML INJ IV PUSH PRN (06:40)
[2017-05-16] MEDS: ONDANSETRON HCL 4 MG/2 ML VIAL IVP PRN (08:32)
[2017-05-16] MEDS: ESCITALOPRAM OXALATE 10 MG TAB PO SCH (08:40)
[2017-05-16] MEDS: FLUDROCORTISONE ACETATE 0.1 MG TAB PO SCH (08:40)
[2017-05-16] MEDS: DOCUSATE SODIUM 50 MG/SENNA 8.6 MG TAB PO SCH ×2 (08:40→22:08)
[2017-05-16] MEDS: ACETAMINOPHEN/HYDROcodone 325 MG/5 MG TAB PO PRN ×2 (08:40→14:45)
[2017-05-16 09:33] LABS: AUTOMATED NEUTROPHIL # 7.7 TH/MM3 (1.8-7.7); BASOPHIL % 0.4 % (0.0-2.0); EOSINOPHIL # 0.4 TH/MM3 (0-0.4); EOSINOPHIL % 3.3 % (0.0-4.0); HEMATOCRIT 21.3 % (35.0-46.0); LYMPH % 14.9 % (9.0-44.0); LYMPHOCYTE # 1.6 TH/MM3 (1.0-4.8); MEAN CELL VOLUME 89.9 FL (80.0-100.0); MEAN CORPUSCULAR HEMOGLOBIN 30.2 PG (27.0-34.0); MEAN CORPUSCULAR HGB CONC 33.5 % (32.0-36.0); MONO % 10.3 % (0.0-8.0); NEUT % 71.1 % (16.0-70.0); PLATELET COUNT 343 TH/MM3 (150-450); RED BLOOD COUNT 2.37 MIL/MM3 (4.00-5.30); WHITE BLOOD COUNT 10.8 TH/MM3 (4.0-11.0)
[2017-05-16 09:49] LABS: HEMO FLAGS AUTO DIFF
[2017-05-16 10:01] LABS: ALKALINE PHOSPHATASE 108 U/L (45-117); ALT (GPT) 32 U/L (10-53); AST (GOT) 44 U/L (15-37); BICARBONATE 24.5 MEQ/L (21.0-32.0); BLOOD UREA NITROGEN 18 MG/DL (7-18); GLOMERULAR FILTRATION RATE 67 ML/MIN (>89); TOTAL BILIRUBIN ADULT 1.5 MG/DL (0.2-1.0)
[2017-05-16 10:08] LABS: ANION GAP 8 MEQ/L (5-15); CHLORIDE 111 MEQ/L (98-107); POTASSIUM 3.4 MEQ/L (3.5-5.1); SODIUM (NA) 143 MEQ/L (136-145)
--- NOTE | 2017-05-16 10:51 | RADRPT ---
EXAM DATE/TIME: 05/16/2017 10:01 [facility] COMPARISON: No previous studies available for comparison. INDICATIONS : Bilateral leg swelling. MEDICAL HISTORY : Hypothyroidism. Congestive heart failure. Hypercholesterolemia. GI bleed. Arthritis. DVT. Anticogulan t therapy. Colitis. Anemia. Acute kidney injury. SURGICAL HISTORY : Tubal ligation. CABG. Coronary stent. Right knee scope. EGD. Colonoscopy. ENCOUNTER: Initial ACUITY: 1 day PAIN SCORE: 0/10 LOCATION: Bilateral legs. TECHNIQUE: Venous ultrasound of the left and right leg was performed from the inguinal ligament to the proximal calf. Real-time, color Doppler and spectral tracing, compression and augmentation techniques were us ed. FINDINGS: RIGHT LEG: There is normal compressibility of the deep venous system from the inguinal region to the proximal ca lf. No echogenic clot is seen in the lumen of the common femoral, femoral, popliteal, and posterior tibial veins. There is a normal response of the venous system to proximal and distal augmentation an d respiration. LEFT LEG: There is normal compressibility of the deep venous system from the inguinal region to the proximal ca lf. No echogenic clot is seen in the lumen of the common femoral, femoral, popliteal, and posterior tibial veins. There is a normal response of the venous system to proximal and distal augmentation an d respiration. CONCLUSION: No DVT in either leg. Juwan Gonzalez MD on May 16, 2017 at 10:49 Board Certified Radiologist. This report was verified electronically.
[2017-05-16] MEDS ORDERED: MULTTAB67 PO (11:08)
[2017-05-16 11:23] LABS: BANDS 13 % (0-6); CORRECTED NUCLEATED RBC 1 /100 WBC (0-0); EOSINOPHILS 1 % (0-4); METAMYELOCYTES 3 % (0-1); MYELOCYTES 1 % (0-0); NEUTROPHIL # MANUAL DIFF 8.3 TH/MM3 (1.8-7.7); PLATELET ESTIMATE SMEAR NORMAL (NORMAL); PLATELET MORPHOLOGY NORMAL (NORMAL); POLYS (SEG NEUTROPHILS) 60 % (16-70); SCAN/DIFF FINAL DIFF MANUAL; WBC DIFF SAMPLE 100
--- NOTE | 2017-05-16 12:03 | PD.CONS ---
Consult Service Palliative Care Consult Requested By Dr. Fernandez. . Primary Care Physician Xavi Renee DO. . Reason for Consultation a. To assist with evaluation and management of symptoms including: confusion , anxiety, malnutrition b. To assist medical decision maker(s) with: better understanding of current medical conditions; weighing benefits/burdens of medical treatment options; making medical treatment decisions. . HPI History of Present Illness Patient is a 81 year old female who presented to the ED on 05/13/17 from [facility] for evaluation of melena, elevated INR, and low hemoglobin. The patient has a past medical history significant for DVT that was being treated with Coumadin, on 05/12/17 her INR was 4.5 and her hemoglobin was 12.6. On arrival to the on 05/13/17 ED her Hgb:6.8, Hct:20.2, INR:1.9, PT:22.1, BUN:57, Creatinine:2.01, GFR:24, Calcium:8.2, AST:53, total Protein:5.9, Albumin :2.5. Of note the patient is a Christianity and she declines any/all blood products. The patient was treated in the ED with iron, vitamin K, PPI bolus and place on PPI drip. GI was immediately consulted to evaluate the patient and planned for endoscopy the following day. * EGD/Colonoscopy was completed 05/14/17: EGD: positive for esophagitis, erythematous gastritis, Colonoscopy: small circumferential colitis found in ascending colon, mucosa congested, erythematous, and ulcerated, consistent with ischemic colitis, biopsy was performed. Hgb:6.1, Hct:17.8 * 05/14/17 Hematology consulted to evaluate anemia/GI bleed, patient started on Procrit, continue Venofer infusion. * 05/15/17 Patient became more confused/agitated possible hospital induced delirium over night requiring Haldol, restraints, scheduled seroquel ordered. Anemia slowly improving Hgb:8.2, Hct:24.4. Patient found to have large hematoma on left thigh. Pelvis CT: Hematoma beginning in the psoas on the left extending down the iliopsoas into the femur. * 05/16/17: Hemoglobin/hematocrit 7.1/21.3 trending down again today. Patient examined in room, at bedside, patient lethargic, minimally verbal, answers most questions with one word answers, unable to maintain wakefulness to hold a conversation. She was able to verbalize " I don't feel good" but unable to elaborate any further. Patient confused, unable to verbalize place, time, or date. Palliative care consulted to assist with goals of care to provide support/ guidance regarding medical treatment benefit/burden medical treatment options. . Function/Cognitive Trajectory Patient was living at home with her up until about 4 months ago, at that time she utilized a walker to ambulate. She had a laparoscopic meniscus tear repair, subsequently develop cellulitis and was hospitalized in early February , where it was then also discovered she had a DVT. Her reported she had issues with hypotension and weakness during that hospitalization. The patient was discharged to [facility] on Coumadin, she was then discharged home with home health. She resided at home for a short time period before her realized her care burden was too great for the home setting and she was placed back into [facility]. He states she has been utilizing a walker and wheelchair in recent days before this hospitalization. According to the patient's she was still alert, oriented, and interactive prior to this hospitalization and was able to go out to eat several times a week with him. . Review of Systems ROS Limitations: Clinical Condition, Altered Mental Status, Poor Historian ( ROS obtained from record and via ) Constitutional: COMPLAINS OF: Fatigue, Generalized weakness Ears, nose, mouth, throat: DENIES: Epistaxis Respiratory: DENIES: Hemoptysis, Shortness of breath Cardiovascular: DENIES: Chest pain, Lower Extremity Edema Gastrointestinal: COMPLAINS OF: Black stools, DENIES: Abdominal pain, Nausea, Vomiting Neurologic: COMPLAINS OF: Poor Balance Past Family Social History Coded Allergies: No Known Allergies (Verified Allergy, Unknown, 05/13/17) Past Medical History DVT S/P athroscopic right knee surgery on Coumadin CAD HTN HLD . Past Surgical History CABG Cardiac Stent R Knee Surgery Tubal Ligation . Reported Medications Reported Meds & Active Scripts Active Reported Multiple Vitamin 1 Tab 1 Tab PO DAILY Pravastatin 20 Mg Tab 20 Mg PO DAILY Pantoprazole (Pantoprazole Sodium) 40 Mg Tab 40 Mg PO DAILY Levothyroxine (Levothyroxine Sodium) 125 Mcg Tab 125 Mcg PO DAILY Gabapentin 100 Mg Cap 200 Mg PO HS Furosemide 20 Mg Tab 20 Mg PO DAILY Fludrocortisone (Fludrocortisone Acetate) 0.1 Mg Tab 0.1 Mg PO DAILY Escitalopram (Escitalopram Oxalate) 10 Mg Tab 10 Mg PO DAILY Oxycodone-Acetaminophen 5-325 mg Tab 1 Tab PO Q4H PRN Docusate Sodium 100 Mg Cap 100 Mg PO BID Flexeril (Cyclobenzaprine HCl) 5 Mg Tab 5 Mg PO TID Naproxen 250 Mg Tab 250 Mg PO BID Gabapentin 100 Mg Cap 100 Mg PO BID Warfarin 6 Mg Tab 6 Mg PO MON,WED,FRI,SAT Warfarin 3 Mg Tab 3 Mg PO SUN,,TH Current Medications Medications (Trade) Dose Ordered Sig/Marin Route Start Time Stop Time Status Last Admin Pantoprazole Sodium 80 mg/ Sodium Chloride 100 ml @ 10 mls/hr Q10H IV 05/13/17 21:38 05/16/17 00:16 (NS Flush) 2 ml UNSCH PRN IV FLUSH 05/13/17 23:15 (NS Flush) 2 ml BID IV FLUSH 05/14/17 09:00 05/15/17 19:57 (Zofran Inj) 4 mg Q6H PRN IVP 05/13/17 23:15 05/16/17 08:32 (Tylenol) 650 mg Q6H PRN PO 05/13/17 23:15 ([place] 5-325 Mg) 1 tab Q4H PRN PO 05/13/17 23:15 05/16/17 08:40 (Morphine Inj) 2 mg Q3H PRN IV PUSH 05/13/17 23:15 05/16/17 06:40 (January-Colace) 1 tab BID PO 05/14/17 09:00 05/16/17 08:40 (Milk Of Magnesia Liq) 30 ml Q12H PRN PO 05/13/17 23:15 (Senokot) 17.2 mg Q12H PRN PO 05/13/17 23:15 (Dulcolax Supp) 10 mg DAILY PRN RECTAL 05/13/17 23:15 (Lactulose Liq) 30 ml DAILY PRN PO 05/13/17 23:15 (Lexapro) 10 mg DAILY PO 05/14/17 09:00 05/16/17 08:40 (Florinef) 0.1 mg DAILY PO 05/14/17 09:00 05/16/17 08:40 (Epogen Inj) 20,000 units EVERY OTHER DAY SQ 05/14/17 13:15 05/14/17 17:27 (Synthroid) 125 mcg DAILY@0600 PO 05/16/17 06:00 (SEROquel) 25 mg HS PO 05/15/17 21:00 05/15/17 19:59 . Family History No history of CAD or DM. . Substance Use Tobacco: Denies. Alcohol: Denies. Prescription med abuse: Denies. Illicits: Denies. . 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 Her son is unfortunately and she is no longer in contact with her daughter. She has currently been to her second for over 40 years. They have lived in [place] for the past 19 years and were snow birds prior to this. . Spiritual/Cultural Factors Christianity. . Living Will: Completed, but not made available ( to bring in copy tomorrow) Physical Exam Vital Signs Date Time Temp Pulse Resp B/P (MAP) Pulse Ox O2 Delivery O2 Flow Rate FiO2 05/16/17 10:00 75 05/16/17 08:00 70 05/16/17 08:00 97.8 70 18 152/64 (93) 96 05/16/17 07:00 96 Nasal Cannula 2.00 05/16/17 06:00 71 05/16/17 04:00 71 05/16/17 02:00 87 05/16/17 00:00 83 05/15/17 23:12 13 05/15/17 22:00 78 05/15/17 20:00 88 05/15/17 19:00 97 Nasal Cannula 2.00 05/15/17 18:00 90 05/15/17 16:00 86 05/15/17 16:00 98.0 86 19 180/70 (106) 96 05/15/17 14:00 76 05/15/17 12:00 98.0 83 14 165/64 (97) 100 05/15/17 12:00 102 . 05/16/17 05/17/17 19:00 07:00 Intake Total 155 ml Balance 155 ml IV Total 155 ml . Exam CONSTITUTIONAL/GENERAL: This is an elderly female patient, lethargic, in no apparent distress. TUBES/LINES/DRAINS: PIV x 2, soft wrist restraints SKIN: No jaundice, rashes, or lesions. Ecchymoses on upper extremities. Ecchymosis on left inner thigh secondary to psoas hematoma. No wounds seen anteriorly. Skin temperature appropriate. Not diaphoretic. HEAD: Atraumatic. Normocephalic. EYES: Pupils equal and round and reactive. No scleral icterus. No injection or drainage. Fundi not examined. ENT: Hearing grossly normal. Nose without bleeding or purulent drainage. Throat without visible erythema, exudates, masses, or lesions. NECK: Trachea midline. Supple, nontender. CARDIOVASCULAR: Regular rate and rhythm without murmurs, gallops, or rubs. No JVD. Peripheral pulses symmetric. RESPIRATORY/CHEST: Symmetric, unlabored respirations. Clear to auscultation. Breath sounds equal bilaterally. No wheezes, rales, or rhonchi. GASTROINTESTINAL: Abdomen soft, non-tender, nondistended. No guarding. Bowel sounds present. GENITOURINARY: Without palpable bladder distension. MUSCULOSKELETAL: Extremities without clubbing, cyanosis, or edema. No mottling or clubbing. NEUROLOGICAL: Lethargic. Follows on step commands intermittently. PSYCHIATRIC: Unable to assess secondary to clinical condition. . Diagnostic Tests Laboratory Laboratory Tests Test 05/13/17 22:00 05/14/17 04:59 05/15/17 06:14 05/15/17 19:30 White Blood Count 10.7 TH/MM3 (4.0-11.0) 10.4 TH/MM3 (4.0-11.0) 8.7 TH/MM3 (4.0-11.0) Red Blood Count 2.27 MIL/MM3 (4.00-5.30) 2.02 MIL/MM3 (4.00-5.30) 2.71 MIL/MM3 (4.00-5.30) Hemoglobin 6.8 GM/DL (11.6-15.3) 6.1 GM/DL (11.6-15.3) 8.2 GM/DL (11.6-15.3) Hematocrit 20.2 % (35.0-46.0) 17.8 % (35.0-46.0) 24.4 % (35.0-46.0) Mean Corpuscular Volume 88.8 FL (80.0-100.0) 88.2 FL (80.0-100.0) 90.2 FL (80.0-100.0) Mean Corpuscular Hemoglobin 30.0 PG (27.0-34.0) 30.3 PG (27.0-34.0) 30.3 PG (27.0-34.0) Mean Corpuscular Hemoglobin Concent 33.8 % (32.0-36.0) 34.4 % (32.0-36.0) 33.6 % (32.0-36.0) Red Cell Distribution Width 14.8 % (11.6-17.2) 14.6 % (11.6-17.2) 15.3 % (11.6-17.2) Platelet Count 231 TH/MM3 (150-450) 237 TH/MM3 (150-450) 323 TH/MM3 (150-450) Mean Platelet Volume 8.7 FL (7.0-11.0) 8.0 FL (7.0-11.0) 7.7 FL (7.0-11.0) Neutrophils (%) (Auto) 78.8 % (16.0-70.0) 75.5 % (16.0-70.0) 70.3 % (16.0-70.0) Lymphocytes (%) (Auto) 11.2 % (9.0-44.0) 12.3 % (9.0-44.0) 17.9 % (9.0-44.0) Monocytes (%) (Auto) 8.9 % (0.0-8.0) 10.7 % (0.0-8.0) 8.9 % (0.0-8.0) Eosinophils (%) (Auto) 0.9 % (0.0-4.0) 1.3 % (0.0-4.0) 2.6 % (0.0-4.0) Basophils (%) (Auto) 0.2 % (0.0-2.0) 0.2 % (0.0-2.0) 0.3 % (0.0-2.0) Neutrophils # (Auto) 8.4 TH/MM3 (1.8-7.7) 7.9 TH/MM3 (1.8-7.7) 6.1 TH/MM3 (1.8-7.7) Lymphocytes # (Auto) 1.2 TH/MM3 (1.0-4.8) 1.3 TH/MM3 (1.0-4.8) 1.6 TH/MM3 (1.0-4.8) Monocytes # (Auto) 0.9 TH/MM3 (0-0.9) 1.1 TH/MM3 (0-0.9) 0.8 TH/MM3 (0-0.9) Eosinophils # (Auto) 0.1 TH/MM3 (0-0.4) 0.1 TH/MM3 (0-0.4) 0.2 TH/MM3 (0-0.4) Basophils # (Auto) 0.0 TH/MM3 (0-0.2) 0.0 TH/MM3 (0-0.2) 0.0 TH/MM3 (0-0.2) CBC Comment AUTO DIFF DIFF FINAL AUTO DIFF Differential Total Cells Counted 100 100 Neutrophils % (Manual) 71 % (16-70) 58 % (16-70) Band Neutrophils % 17 % (0-6) 12 % (0-6) Lymphocytes % 8 % (9-44) 13 % (9-44) Monocytes % 3 % (0-8) 10 % (0-8) Basophils % 1 % (0-2) 1 % (0-2) Neutrophils # (Manual) 9.4 TH/MM3 (1.8-7.7) 6.4 TH/MM3 (1.8-7.7) Differential Comment FINAL DIFF MANUAL FINAL DIFF MANUAL Platelet Estimate NORMAL (NORMAL) Platelet Morphology Comment NORMAL (NORMAL) Prothrombin Time 22.1 SEC (9.8-11.6) 14.5 SEC (9.8-11.6) 11.2 SEC (9.8-11.6) Prothromb Time International Ratio 1.9 RATIO 1.3 RATIO 1.0 RATIO Activated Partial Thromboplast Time 41.8 SEC (24.3-30.1) Blood Urea Nitrogen 57 MG/DL (7-18) 51 MG/DL (7-18) 29 MG/DL (7-18) Creatinine 2.01 MG/DL (0.50-1.00) 1.66 MG/DL (0.50-1.00) 1.01 MG/DL (0.50-1.00) Random Glucose 108 MG/DL (74-106) 103 MG/DL (74-106) 84 MG/DL (74-106) Total Protein 5.9 GM/DL (6.4-8.2) 5.7 GM/DL (6.4-8.2) Albumin 2.5 GM/DL (3.4-5.0) 2.3 GM/DL (3.4-5.0) 2.6 GM/DL (3.4-5.0) Calcium Level 8.2 MG/DL (8.5-10.1) 7.9 MG/DL (8.5-10.1) 8.7 MG/DL (8.5-10.1) Alkaline Phosphatase 115 U/L (45-117) 118 U/L (45-117) Aspartate Amino Transf (AST/SGOT) 53 U/L (15-37) 48 U/L (15-37) Alanine Aminotransferase (ALT/SGPT) 33 U/L (10-53) 32 U/L (10-53) Total Bilirubin 0.9 MG/DL (0.2-1.0) 1.1 MG/DL (0.2-1.0) Sodium Level 135 MEQ/L (136-145) 136 MEQ/L (136-145) 142 MEQ/L (136-145) Potassium Level 4.0 MEQ/L (3.5-5.1) 3.6 MEQ/L (3.5-5.1) 3.6 MEQ/L (3.5-5.1) Chloride Level 101 MEQ/L (98-107) 103 MEQ/L (98-107) 110 MEQ/L (98-107) Carbon Dioxide Level 23.6 MEQ/L (21.0-32.0) 23.5 MEQ/L (21.0-32.0) 23.3 MEQ/L (21.0-32.0) Anion Gap 10 MEQ/L (5-15) 10 MEQ/L (5-15) 9 MEQ/L (5-15) Estimat Glomerular Filtration Rate 24 ML/MIN (>89) 30 ML/MIN (>89) 52 ML/MIN (>89) Lipase 127 U/L (73-393) Blood Smear Pathologist Review Reticulocyte Count 2.6 % (0.4-3.0) Absolute Reticulocyte Count 52.3 MIL/L (20.0-150.0) Haptoglobin 264 MG/DL (30-200) Iron Level 110 MCG/DL (50-170) Total Iron Binding Capacity 150 MCG/DL (250-450) Percent Iron Saturation 73.4 % (20-50) Ferritin 228 NG/ML (8-252) Lactate Dehydrogenase 269 U/L (84-246) Total Creatine Kinase 949 U/L (26-192) 351 U/L (26-192) Creatine Kinase MB 5.4 NG/ML (0.5-3.6) 2.8 NG/ML (0.5-3.6) Creatine Kinase MB % 0.6 % (0.0-4.0) 0.8 % (0.0-4.0) Vitamin B12 Level 677 PG/ML (193-986) Eosinophils % 3 % (0-4) Metamyelocytes 1 % (0-1) Myelocytes 2 % (0-0) Nucleated Red Blood Cells 1 /100 WBC (0-0) Phosphorus Level 1.6 MG/DL (2.5-4.9) Magnesium Level 2.3 MG/DL (1.5-2.5) Test 05/15/17 22:45 05/16/17 08:53 Urine Color YELLOW (YELLW/STRAW) Urine Turbidity CLEAR (CLEAR) Urine pH 5.5 (5.0-8.5) Urine Specific [place] 1.014 (1.002-1.035) Urine Protein 30 mg/dL (NEG-TRACE) Urine Glucose (UA) NEG mg/dL (NEG) Urine Ketones TRACE mg/dL (NEG) Urine Occult Blood SMALL (NEG) Urine Nitrite NEG (NEG) Urine Bilirubin NEG (NEG) Urine Urobilinogen LESS THAN 2.0 MG/DL (LESS Urine Leukocyte Esterase NEG (NEG) Urine WBC 1 /hpf (0-5) Urine Squamous Epithelial Cells <1 /hpf (0-5) Urine Amorphous Sediment RARE Microscopic Urinalysis Comment CATH-CULT NOT IND White Blood Count 10.8 TH/MM3 (4.0-11.0) Red Blood Count 2.37 MIL/MM3 (4.00-5.30) Hemoglobin 7.1 GM/DL (11.6-15.3) Hematocrit 21.3 % (35.0-46.0) Mean Corpuscular Volume 89.9 FL (80.0-100.0) Mean Corpuscular Hemoglobin 30.2 PG (27.0-34.0) Mean Corpuscular Hemoglobin Concent 33.5 % (32.0-36.0) Red Cell Distribution Width 15.0 % (11.6-17.2) Platelet Count 343 TH/MM3 (150-450) Mean Platelet Volume 7.6 FL (7.0-11.0) Neutrophils (%) (Auto) 71.1 % (16.0-70.0) Lymphocytes (%) (Auto) 14.9 % (9.0-44.0) Monocytes (%) (Auto) 10.3 % (0.0-8.0) Eosinophils (%) (Auto) 3.3 % (0.0-4.0) Basophils (%) (Auto) 0.4 % (0.0-2.0) Neutrophils # (Auto) 7.7 TH/MM3 (1.8-7.7) Lymphocytes # (Auto) 1.6 TH/MM3 (1.0-4.8) Monocytes # (Auto) 1.1 TH/MM3 (0-0.9) Eosinophils # (Auto) 0.4 TH/MM3 (0-0.4) Basophils # (Auto) 0.0 TH/MM3 (0-0.2) CBC Comment AUTO DIFF Differential Total Cells Counted 100 Neutrophils % (Manual) 60 % (16-70) Band Neutrophils % 13 % (0-6) Lymphocytes % 19 % (9-44) Monocytes % 3 % (0-8) Eosinophils % 1 % (0-4) Neutrophils # (Manual) 8.3 TH/MM3 (1.8-7.7) Metamyelocytes 3 % (0-1) Myelocytes 1 % (0-0) Nucleated Red Blood Cells 1 /100 WBC (0-0) Differential Comment FINAL DIFF MANUAL Platelet Estimate NORMAL (NORMAL) Platelet Morphology Comment NORMAL (NORMAL) Blood Urea Nitrogen 18 MG/DL (7-18) Creatinine 0.82 MG/DL (0.50-1.00) Random Glucose 89 MG/DL (74-106) Total Protein 6.0 GM/DL (6.4-8.2) Albumin 2.3 GM/DL (3.4-5.0) Calcium Level 8.3 MG/DL (8.5-10.1) Alkaline Phosphatase 108 U/L (45-117) Aspartate Amino Transf (AST/SGOT) 44 U/L (15-37) Alanine Aminotransferase (ALT/SGPT) 32 U/L (10-53) Total Bilirubin 1.5 MG/DL (0.2-1.0) Sodium Level 143 MEQ/L (136-145) Potassium Level 3.4 MEQ/L (3.5-5.1) Chloride Level 111 MEQ/L (98-107) Carbon Dioxide Level 24.5 MEQ/L (21.0-32.0) Anion Gap 8 MEQ/L (5-15) Estimat Glomerular Filtration Rate 67 ML/MIN (>89) . Result Diagram: 05/16/17 0853 05/16/17 0853 Imaging Last 72 hours Impressions Lower Extremity Ultrasound 05/16/17 0000 Signed Impressions: Service Date/Time: Tuesday, May 16, 2017 10:01 - CONCLUSION: No DVT in either leg. Juwan Gonzalez MD Pelvis CT 05/15/17 0000 Signed Impressions: Service Date/Time: Monday, May 15, 2017 15:24 - CONCLUSION: Hematoma as described above beginning in the psoas on the left extending down the iliopsoas into the femur. Xavi Arango MD FACR Lower Extremity CT 05/15/17 0000 Signed Impressions: Service Date/Time: Monday, May 15, 2017 15:24 - CONCLUSION: Iliopsoas hematoma as described above. Xavi Arango MD FACR . Procedures 05/14/17: EGD/Colonoscopy. . Patient/Family Conference Present at Family Conference: Mohan Salcido. . Family Conference Location: Bedside Issues Discussed: * Palliative care role, purpose, approach * Additional medical, psychosocial, and spiritual history * Patients general health, functional status, and cognitive changes in the months leading up to the current hospitalization * Family understanding of the current medical problems * Patients goals of care as best understood from advance directives and/or conversations and/or values * Current medical treatment options and benefits/burdens of those options * Code status * Questions answered to the best of my ability * Palliative care contact information provided . 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 Her son is unfortunately and she is no longer in contact with her daughter. She has currently been to her second for over 40 years. They have lived in [place] for the past 19 years and were snow birds prior to this. . Spiritual: Christianity. Legal: None known. Ethical issues impacting care: None known. Important Contacts Gabriele Salcido (): [phone]. . Prognosis Patient presented to the ED for anemia and GI bleed, she is a Religion and has refused any/all blood products. Now suffering from hospital induced delirium and remains anemic. Due to her advanced age and multiple comorbidities she is at an ongoing risk for further set backs and complications. Code Status: No Code Plan * Legal decision maker: Patient is unable to participate in medical decision making at this time secondary to clinical condition and lethargy. Patient's reports that the patient has completed advanced directives at home, he is going to bring in a copy tomorrow. Per [place] statutes in the absence of written advanced directives medical decision making would fall to the patient's next of kin which is the patient's . * CODE STATUS: DNR * GOALS: Aggressive short of resuscitation. Pending further discussion over the coming days depending on the patient's hospital course. Patient's to bring in copies of advanced directives to further discuss patient's wishes. Discussed end of life wishes and scenarios such as requiring artificial nutrition, patient's stated he knows she would not want to be sustained on artificial nutrition. * * Discussed with bedside RN. * SYMPTOM MANAGEMENT: * --Malnutrition: Patient is at an ongoing risk for malnutrition secondary to clinical condition, bed bound status, advanced age. 05/16 Albumin:2.3. Patient currently on heart healthy diet but is completely dependent for feeding. A formal speech evaluation would be beneficial. Patient could benefit from a supplement with meals such as ensure. * --Confusion: Patient currently experiencing hospital induced delirium. Received one time dose of Haldol 2mg. Seroquel 25mg HS started 05/15/17. Recommend frequent reorientation and transfer out of ICU as soon as possible. * --Anxiety: Patient has been experiencing episodes of anxiety in which she screams and calls out. Patient received one time dose of ativan 0.5mg on . Given her advanced age and clinical condition benzodiazepine use should be utilized sparingly could consider low dose PRN haldol as the seroquel was recently initiated. * Palliative care will continue to follow during hospital course as condition evolves, to assist patient/family/decision-maker with understanding of medical conditions, weighing benefit/burdens of treatment options, for clarification of goals of treatment. Additionally will assist with symptoms of palliative concern. * . Thank you for the opportunity to participate in the care of Ms. Gomez. Attestation To help prompt me to consider important information that might be impacting today's encounter and assessment, information from prior notes written by myself or my colleagues may have been "brought forward" into today's note. My signature on this note, however, is an attestation that I personally performed the exam, history, and/or decision-making noted today, and, unless otherwise indicated, the interactions with patient, family, and staff as well as the review of records all occurred today. I also attest that the listed assessment and stated plan reflect my best clinical judgment today based on the combination of historical information, prior notes, and today's exam/ interactions. When time spent is documented, it refers only to time spent today by the signer, or if indicated, combined time spent today by collaborating physician/nurse practitioner. Oumou Garcia May 16, 2017 12:02
--- NOTE | 2017-05-16 12:28 | PD.ONC.PN ---
Subjective Subjective Remarks Afebrile overnight. Patient resting in bed. at bedside. Remains confused. Objective Data Date Time Temp Pulse Resp B/P (MAP) Pulse Ox O2 Delivery O2 Flow Rate FiO2 05/16/17 10:00 75 05/16/17 08:00 70 05/16/17 08:00 97.8 70 18 152/64 (93) 96 05/16/17 07:00 96 Nasal Cannula 2.00 05/16/17 06:00 71 05/16/17 04:00 71 05/16/17 02:00 87 05/16/17 00:00 83 05/15/17 23:12 13 05/15/17 22:00 78 05/15/17 20:00 88 05/15/17 19:00 97 Nasal Cannula 2.00 05/15/17 18:00 90 05/15/17 16:00 86 05/15/17 16:00 98.0 86 19 180/70 (106) 96 05/15/17 14:00 76 05/16/17 05/16/17 05/16/17 07:00 15:00 23:00 Intake Total 580 ml 155 ml Output Total 1100 ml Balance -520 ml 155 ml Result Diagram: 05/16/17 0853 05/16/17 0853 Laboratory Results Laboratory Tests Test 05/15/17 19:30 05/15/17 22:45 05/16/17 08:53 Prothrombin Time 11.2 SEC Prothromb Time International Ratio 1.0 RATIO Total Creatine Kinase 351 U/L Creatine Kinase MB 2.8 NG/ML Creatine Kinase MB % 0.8 % Urine Color YELLOW Urine Turbidity CLEAR Urine pH 5.5 Urine Specific [place] 1.014 Urine Protein 30 mg/dL Urine Glucose (UA) NEG mg/dL Urine Ketones TRACE mg/dL Urine Occult Blood SMALL Urine Nitrite NEG Urine Bilirubin NEG Urine Urobilinogen LESS THAN 2.0 MG/DL Urine Leukocyte Esterase NEG Urine WBC 1 /hpf Urine Squamous Epithelial Cells <1 /hpf Urine Amorphous Sediment RARE Microscopic Urinalysis Comment CATH-CULT NOT IND White Blood Count 10.8 TH/MM3 Red Blood Count 2.37 MIL/MM3 Hemoglobin 7.1 GM/DL Hematocrit 21.3 % Mean Corpuscular Volume 89.9 FL Mean Corpuscular Hemoglobin 30.2 PG Mean Corpuscular Hemoglobin Concent 33.5 % Red Cell Distribution Width 15.0 % Platelet Count 343 TH/MM3 Mean Platelet Volume 7.6 FL Neutrophils (%) (Auto) 71.1 % Lymphocytes (%) (Auto) 14.9 % Monocytes (%) (Auto) 10.3 % Eosinophils (%) (Auto) 3.3 % Basophils (%) (Auto) 0.4 % Neutrophils # (Auto) 7.7 TH/MM3 Lymphocytes # (Auto) 1.6 TH/MM3 Monocytes # (Auto) 1.1 TH/MM3 Eosinophils # (Auto) 0.4 TH/MM3 Basophils # (Auto) 0.0 TH/MM3 CBC Comment AUTO DIFF Differential Total Cells Counted 100 Neutrophils % (Manual) 60 % Band Neutrophils % 13 % Lymphocytes % 19 % Monocytes % 3 % Eosinophils % 1 % Neutrophils # (Manual) 8.3 TH/MM3 Metamyelocytes 3 % Myelocytes 1 % Nucleated Red Blood Cells 1 /100 WBC Differential Comment FINAL DIFF MANUAL Platelet Estimate NORMAL Platelet Morphology Comment NORMAL Blood Urea Nitrogen 18 MG/DL Creatinine 0.82 MG/DL Random Glucose 89 MG/DL Total Protein 6.0 GM/DL Albumin 2.3 GM/DL Calcium Level 8.3 MG/DL Alkaline Phosphatase 108 U/L Aspartate Amino Transf (AST/SGOT) 44 U/L Alanine Aminotransferase (ALT/SGPT) 32 U/L Total Bilirubin 1.5 MG/DL Sodium Level 143 MEQ/L Potassium Level 3.4 MEQ/L Chloride Level 111 MEQ/L Carbon Dioxide Level 24.5 MEQ/L Anion Gap 8 MEQ/L Estimat Glomerular Filtration Rate 67 ML/MIN Imaging Studies Last 24 hours Impressions Lower Extremity Ultrasound 05/16/17 0000 Signed Impressions: Service Date/Time: Tuesday, May 16, 2017 10:01 - CONCLUSION: No DVT in either leg. Juwan Gonzalez MD Administered Medications Medications (Trade) Dose Ordered Sig/Marin Route PRN Reason Start Time Stop Time Status Last Admin Dose Admin Sodium Chloride (NS Flush) 2 ml BID IV FLUSH 05/14/17 09:00 05/15/17 19:57 Ondansetron HCl (Zofran Inj) 4 mg Q6H PRN IVP NAUSEA OR VOMITING 05/13/17 23:15 05/16/17 08:32 Acetaminophen/ Hydrocodone Bitart ([place] 5-325 Mg) 1 tab Q4H PRN PO PAIN SCALE 3 TO 5 05/13/17 23:15 05/16/17 08:40 Senna/Docusate Sodium (January-Colace) 1 tab BID PO 05/14/17 09:00 05/16/17 08:40 Escitalopram Oxalate (Lexapro) 10 mg DAILY PO 05/14/17 09:00 05/16/17 08:40 Fludrocortisone Acetate (Florinef) 0.1 mg DAILY PO 05/14/17 09:00 05/16/17 08:40 Epoetin Floyd (Epogen Inj) 20,000 units EVERY OTHER DAY SQ 05/14/17 13:15 05/14/17 17:27 Quetiapine Fumarate (SEROquel) 25 mg HS PO 05/15/17 21:00 05/15/17 19:59 Objective Remarks GENERAL: Elderly female supine in bed in nad SKIN: Warm and dry. HEAD: Normocephalic. EYES: No injection or drainage. NECK: Supple, trachea midline. CARDIOVASCULAR: +S1/S2 RESPIRATORY: anterior garcia clear GASTROINTESTINAL: Abdomen soft, non-tender, nondistended. EXTREMITIES: No cyanosis. ecchymoses noted, left thigh/pelvis NEUROLOGICAL: lethargic, confused. Assessment/Plan Problem List: (1) Normocytic anemia ICD Codes: D64.9 - Anemia, unspecified Plan: --reported melanotic stool. --EGD showed esophagitis/gastritis --also with large hematoma left leg. --is a Hindu and does not want blood transfusion. --on Venofer infusion. --receives Procrit qod (2) Right leg DVT ICD Codes: I82.401 - Acute embolism and thrombosis of unspecified deep veins of right lower extremity Plan: --Due to anemia/bleeding --not a candidate for anticoagulation at this point --Monitor closely for recurrent clot. --repeat u/s shows no DVT Assessment 81y/o Hindu brought into to the emergency room with a drop in hemoglobin as well as elevated INR. Recent right lower extremity deep venous thrombosis. Hypertension. Hyperlipidemia. Coronary artery bypass graft surgery. Arthroscopic right knee surgery. Coronary stent placement. Bilateral tubal ligation. Plan 1. continue Venofer, Procrit 2. monitor CBC 3. hold anticoagulation Attending Statement The exam, history, and the medical decision-making described in the above note were completed with the assistance of the mid-level provider. I reviewed and agree with the findings presented. I attest that I had a [id number] encounter with the patient on the same day, and personally performed and documented my assessment and findings in the medical record. Still confused. N[place] bleeding noted. Left thigh hematoma stable. Ct showed large iliopsoas hematoma likely due to anticoagulation. The drop in anemia likely due to the hematoma, GI w/u showed no active bleed. Continue venofer and procrit. Not candidate for anticoagulation. Recent DVT reportedly due to knee surgery. Will get US LE and if no DVT, continue to monitor. Lesa Singh May 16, 2017 12:28 Tyrone Lopez MD May 16, 2017 19:36
--- NOTE | 2017-05-16 13:25 | HHI.PR ---
Subjective Remarks Mental status much improved this morning. Patient says she is feeling all right. sHe is able to tell me she is in the hospital. Discussed with . He says that he is been in the hospital for 8 hours a day, but that he is old and cannot do anymore. He says there are no family or friends to come by to keep patient company. Objective Vital Signs Date Time Temp Pulse Resp B/P (MAP) Pulse Ox O2 Delivery O2 Flow Rate FiO2 05/16/17 10:00 75 05/16/17 08:00 70 05/16/17 08:00 97.8 70 18 152/64 (93) 96 05/16/17 07:00 96 Nasal Cannula 2.00 05/16/17 06:00 71 05/16/17 04:00 71 05/16/17 02:00 87 05/16/17 00:00 83 05/15/17 23:12 13 05/15/17 22:00 78 05/15/17 20:00 88 05/15/17 19:00 97 Nasal Cannula 2.00 05/15/17 18:00 90 05/15/17 16:00 86 05/15/17 16:00 98.0 86 19 180/70 (106) 96 05/15/17 14:00 76 I/O 05/15/17 05/15/17 05/15/17 05/16/17 05/16/17 05/16/17 07:00 15:00 23:00 07:00 15:00 23:00 Intake Total 50 ml 210 ml 1120 ml 580 ml 205 ml Output Total 1100 ml Balance 50 ml 210 ml 1120 ml -520 ml 205 ml Intake Oral 1120 ml IV Total 50 ml 210 ml 580 ml 205 ml Output Urine Total 1100 ml # Voids 5 6 3 Result Diagram: 05/16/17 0853 05/16/17 0853 Objective Remarks GENERAL: Lying in bed. Appears pale. Patient awake, much more alert today. Answers that she is in the hospital. Obeys commands. SKIN: Warm and dry. HEAD: Normocephalic. EYES: No scleral icterus. No injection or drainage. NECK: Supple, trachea midline. No JVD. CARDIOVASCULAR: Regular rate and rhythm without murmurs, gallops, or rubs. RESPIRATORY: Breath sounds equal bilaterally. No accessory muscle use. GASTROINTESTINAL: Abdomen soft, non-tender, nondistended. MUSCULOSKELETAL: No cyanosis, or edema. Patient does have ecchymosis of the left inner thigh without any broken skin. No change from yesterday BACK: Nontender without obvious deformity. No CVA tenderness. A/P Assessment and Plan =====05/16/17 //Hospital-induced delirium. -Much improved today. Continue Seroquel at night. Transferred to floor. Reorientation. Out of bed to chair. //Anemia. -Likely secondary to left hip hematoma. CT reviewed. Hemoglobin worsening 7.1 from 8.2 yesterday. Appreciate hematology and gastroenterology assistance. Continue to hold Coumadin. Since patient has had Coumadin for 6 months, no DVT on ultrasound, can discontinue Coumadin indefinitely. //Acute kidney injury. Resolved. Creatinine 0.8 from 2.0 on admission. //Elevated CK. Likely secondary to soft tissue injury of left thigh. Continue IV fluids. Continue to monitor. CK reordered for today. //Soft tissue injury with ecchymosis of left thigh. No tenderness with hip joint. No broken skin. Continue to monitor. -CT with hematoma. Ultrasound negative for DVT. Appreciate hematology assistance. // GI Bleed: Severe. On Coumadin for h/o DVT, INR elevated, Hgb trending down , 7.7 from outpatient labs earlier today, currently Hgb 6.8. On Protonix gtt, will continue. GI Consulted by ER physician, plan is for EGD/Colonoscopy in am , prep to be done tonight. Pt does not want transfusion of blood products if needed. =05/14 Place consult for hematology. Appreciate assistance. Respiratory no ordered. Status post iv iron. Appreciate GI assistance. = Colonoscopy with possible ischemic colitis. Pathology pending. Appreciate GI assistance. // Anemia: Secondary to acute blood loss. Hgb 6.8 on admission. S/p Iron IV in ER as pt declining transfusion. Monitor Hgb/Hct. Limit blood draws as possible =05/14 Place consult for hematology. Appreciate assistance. Respiratory no ordered. Status post iv iron. Appreciate GI assistance. // Chronic Anticoagulation: h/o DVT on Coumadin, supratherapeutic INR 4.57 05/12 and 3.9 on 05/11/17 per records. INR currently 1.9, s/p Vitamin K. Repeat INR in am. = 05/14 INR 1.3. Continue to Hold Coumadin for active bleeding. Hematology following. Appreciate assistance. // SEBASTIAN: Creatinine 2.01 on admission, previously 0.80 on 03/15/17. = 05/14. Creatinine 1.66, improved from yesterday. Continue IV fluids. Continue to monitor. // Mu-ism: Pt confirms she is Jehova's Witness and does not want to receive any form of blood products. // DNR: Code Status confirmed, pt DNR. // DVT Prophylaxis: Pharmacologic contraindication secondary to active GI Bleed. Discharge Planning Transfer to floor. Continue to monitor. Reid Fernandez MD May 16, 2017 13:25
[2017-05-16 14:34] LABS: INDIRECT BILIRUBIN 0.9 MG/DL (0.0-0.8)
[2017-05-16 14:35] LABS: CREATINE KINASE 628 U/L (26-192)
[2017-05-16] MEDS ORDERED: HYDROmorphone HCL PF 1 MG/ML VIAL IV ONE (17:00)
[2017-05-16] MEDS: EPOETIN ALFA 20,000 UNITS/ML VIAL SQ SCH (18:35)
[2017-05-16] MEDS: SODIUM CHLORIDE 0.9% FLUSH 10 ML FLUSH IV FLUSH SCH (20:24)
--- NOTE | 2017-05-16 20:32 | EKG ---
Date Performed: 05/15/2017 Time Performed: 14:29:14 PTAGE: 81 years EKG: PROBABLE Atrial fibrillation BASELINE ARTIFACT LIMITS INTERPRETATION Extensive ST-T changes may be due to myocardial ischemia Abnormal ECG PREVIOUS TRACING : 05/13/2017 21.40 DOCTOR: Ryan Oseguera Interpretating Date/Time 05/16/2017 20:33:27
[2017-05-16] MEDS: QUEtiapine FUMARATE 25 MG TAB PO SCH (22:08)
[2017-05-16] MEDS: PANTOPRAZOLE SOD 20 MG DELAYED RELEASE TAB PO SCH (22:08)
[2017-05-17] VITALS (7 sets, daily range): BP systolic 133–180; BP diastolic 62–82; PULSE 70–87; RESP 17–20; TEMP 96.7–98.4; O2SAT 95–98
[2017-05-17] MEDS: ACETAMINOPHEN/HYDROcodone 325 MG/5 MG TAB PO PRN ×3 (02:56→20:16)
[2017-05-17] MEDS: LEVOTHYROXINE SODIUM 125 MCG TAB PO SCH (05:27)
[2017-05-17 09:50] LABS: AUTOMATED NEUTROPHIL # 9.7 TH/MM3 (1.8-7.7); BASOPHIL % 0.2 % (0.0-2.0); EOSINOPHIL # 0.4 TH/MM3 (0-0.4); EOSINOPHIL % 2.6 % (0.0-4.0); LYMPHOCYTE # 1.7 TH/MM3 (1.0-4.8); MEAN CELL VOLUME 89.8 FL (80.0-100.0); MEAN CORPUSCULAR HGB CONC 32.3 % (32.0-36.0); MONO % 11.9 % (0.0-8.0); NEUT % 72.3 % (16.0-70.0); PLATELET COUNT 403 TH/MM3 (150-450); RED BLOOD COUNT 2.24 MIL/MM3 (4.00-5.30); RED CELL DISTRIBUTION WIDTH 15.3 % (11.6-17.2); WHITE BLOOD COUNT 13.4 TH/MM3 (4.0-11.0)
[2017-05-17 09:53] LABS: BICARBONATE 25.8 MEQ/L (21.0-32.0); POTASSIUM 3.4 MEQ/L (3.5-5.1)
[2017-05-17 09:55] LABS: HEMO FLAGS AUTO DIFF
[2017-05-17 09:56] LABS: HEMATOCRIT 20.1 % (35.0-46.0)
[2017-05-17] MEDS: ESCITALOPRAM OXALATE 10 MG TAB PO SCH (10:08)
[2017-05-17] MEDS: FLUDROCORTISONE ACETATE 0.1 MG TAB PO SCH (10:08)
[2017-05-17] MEDS: DOCUSATE SODIUM 50 MG/SENNA 8.6 MG TAB PO SCH ×2 (10:08→20:16)
[2017-05-17] MEDS: SODIUM CHLORIDE 0.9% FLUSH 10 ML FLUSH IV FLUSH SCH ×2 (10:09→20:42)
--- NOTE | 2017-05-17 10:33 | HHI.HCPN ---
Reason for visit a. To assist with evaluation and management of symptoms including: confusion , anxiety, malnutrition b. To assist medical decision maker(s) with: better understanding of current medical conditions; weighing benefits/burdens of medical treatment options; making medical treatment decisions. . Subjective/Interval History Patient is a 81 year old female who presented to the ED on 05/13/17 from [facility] for evaluation of melena, elevated INR, and low hemoglobin. The patient has a past medical history significant for DVT that was being treated with Coumadin, on 05/12/17 her INR was 4.5 and her hemoglobin was 12.6. On arrival to the on 05/13/17 ED her Hgb:6.8. Of note the patient is a Nondenominational and she declines any/all blood products. Patient examined in room today, at bedside, patient is awake and alert, oriented to person and place. She states "I feel much better today". Patient is slow to answer questions but her mentation is greatly improved since yesterday. She is currently sitting up in bed preparing to eat breakfast. Patient complains of aching pain and tenderness in her left leg. She denies any nausea, vomiting, or melena. Patient's hemoglobin continues to trend down, Hgb:6.5 today from 7.1 yesterday. Palliative care consulted to assist with goals of care to provide support/ guidance regarding medical treatment benefit/burden medical treatment options. . Family/friend interactions Bedside meeting with patient and patient's . Advance Directives Living Will: Copy in medical record Health Care Surrogate: Copy in medical record Advance Directive Specifics Date completed: 04/08/2009. Health Care Surrogate(s): Mohan Gomez () Lee Aldana (alternate HCS). . Documented care wishes: Standard verbiage in living will. Patient documented she does not desire life sustaining measures if she has a terminal condition or is in a persistent vegetative state. . Objective Vital Signs Date Time Temp Pulse Resp B/P (MAP) Pulse Ox O2 Delivery O2 Flow Rate FiO2 05/17/17 04:00 98.1 79 17 146/62 (90) 96 05/17/17 00:00 98.0 70 17 152/69 (96) 98 05/16/17 22:15 97.3 76 17 156/65 (95) 100 05/16/17 20:00 70 05/16/17 20:00 98.3 70 14 166/69 (101) 100 05/16/17 19:00 100 Nasal Cannula 2.00 05/16/17 18:00 70 05/16/17 17:30 16 05/16/17 16:10 18 05/16/17 16:01 98.0 70 18 170/65 (100) 05/16/17 16:00 75 05/16/17 15:58 Nasal Cannula 05/16/17 14:00 84 05/16/17 12:00 72 05/16/17 12:00 97.6 71 13 121/60 (80) 96 Intake & Output 05/17/17 05/17/17 07:00 19:00 # Voids 2 . Physical Exam CONSTITUTIONAL/GENERAL: This is an elderly female patient, awake and alert, pleasant, in no apparent distress. TUBES/LINES/DRAINS: PIV x 2. SKIN: No jaundice, rashes, or lesions. Ecchymoses on upper extremities. Ecchymosis on left inner thigh secondary to psoas hematoma. No wounds seen anteriorly. Skin temperature appropriate. Not diaphoretic. EYES: Pupils equal and round and reactive. No scleral icterus. No injection or drainage. Fundi not examined. ENT: Hearing grossly normal. Nose without bleeding or purulent drainage. Throat without visible erythema, exudates, masses, or lesions. CARDIOVASCULAR: Regular rate and rhythm without murmurs, gallops, or rubs. No JVD. Peripheral pulses symmetric. RESPIRATORY/CHEST: Symmetric, unlabored respirations. Expiratory wheezing bilaterally. Breath sounds equal bilaterally. GASTROINTESTINAL: Abdomen soft, non-tender, nondistended. No guarding. Bowel sounds present. GENITOURINARY: Without palpable bladder distension. MUSCULOSKELETAL: Extremities without clubbing, cyanosis, or edema. No mottling or clubbing. NEUROLOGICAL: Awake and alert. Oriented to person and place. Follows commands. Slow to answer questions or find words. PSYCHIATRIC: No obvious anxiety or depression. . Diagnostic Tests Laboratory Laboratory Tests Test 05/15/17 06:14 05/15/17 19:30 05/15/17 22:45 05/16/17 08:53 White Blood Count 8.7 TH/MM3 (4.0-11.0) 10.8 TH/MM3 (4.0-11.0) Red Blood Count 2.71 MIL/MM3 (4.00-5.30) 2.37 MIL/MM3 (4.00-5.30) Hemoglobin 8.2 GM/DL (11.6-15.3) 7.1 GM/DL (11.6-15.3) Hematocrit 24.4 % (35.0-46.0) 21.3 % (35.0-46.0) Mean Corpuscular Volume 90.2 FL (80.0-100.0) 89.9 FL (80.0-100.0) Mean Corpuscular Hemoglobin 30.3 PG (27.0-34.0) 30.2 PG (27.0-34.0) Mean Corpuscular Hemoglobin Concent 33.6 % (32.0-36.0) 33.5 % (32.0-36.0) Red Cell Distribution Width 15.3 % (11.6-17.2) 15.0 % (11.6-17.2) Platelet Count 323 TH/MM3 (150-450) 343 TH/MM3 (150-450) Mean Platelet Volume 7.7 FL (7.0-11.0) 7.6 FL (7.0-11.0) Neutrophils (%) (Auto) 70.3 % (16.0-70.0) 71.1 % (16.0-70.0) Lymphocytes (%) (Auto) 17.9 % (9.0-44.0) 14.9 % (9.0-44.0) Monocytes (%) (Auto) 8.9 % (0.0-8.0) 10.3 % (0.0-8.0) Eosinophils (%) (Auto) 2.6 % (0.0-4.0) 3.3 % (0.0-4.0) Basophils (%) (Auto) 0.3 % (0.0-2.0) 0.4 % (0.0-2.0) Neutrophils # (Auto) 6.1 TH/MM3 (1.8-7.7) 7.7 TH/MM3 (1.8-7.7) Lymphocytes # (Auto) 1.6 TH/MM3 (1.0-4.8) 1.6 TH/MM3 (1.0-4.8) Monocytes # (Auto) 0.8 TH/MM3 (0-0.9) 1.1 TH/MM3 (0-0.9) Eosinophils # (Auto) 0.2 TH/MM3 (0-0.4) 0.4 TH/MM3 (0-0.4) Basophils # (Auto) 0.0 TH/MM3 (0-0.2) 0.0 TH/MM3 (0-0.2) CBC Comment AUTO DIFF AUTO DIFF Differential Total Cells Counted 100 100 Neutrophils % (Manual) 58 % (16-70) 60 % (16-70) Band Neutrophils % 12 % (0-6) 13 % (0-6) Lymphocytes % 13 % (9-44) 19 % (9-44) Monocytes % 10 % (0-8) 3 % (0-8) Eosinophils % 3 % (0-4) 1 % (0-4) Basophils % 1 % (0-2) Neutrophils # (Manual) 6.4 TH/MM3 (1.8-7.7) 8.3 TH/MM3 (1.8-7.7) Metamyelocytes 1 % (0-1) 3 % (0-1) Myelocytes 2 % (0-0) 1 % (0-0) Nucleated Red Blood Cells 1 /100 WBC (0-0) 1 /100 WBC (0-0) Differential Comment FINAL DIFF MANUAL FINAL DIFF MANUAL Blood Urea Nitrogen 29 MG/DL (7-18) 18 MG/DL (7-18) Creatinine 1.01 MG/DL (0.50-1.00) 0.82 MG/DL (0.50-1.00) Random Glucose 84 MG/DL (74-106) 89 MG/DL (74-106) Albumin 2.6 GM/DL (3.4-5.0) 2.3 GM/DL (3.4-5.0) Calcium Level 8.7 MG/DL (8.5-10.1) 8.3 MG/DL (8.5-10.1) Phosphorus Level 1.6 MG/DL (2.5-4.9) Magnesium Level 2.3 MG/DL (1.5-2.5) Sodium Level 142 MEQ/L (136-145) 143 MEQ/L (136-145) Potassium Level 3.6 MEQ/L (3.5-5.1) 3.4 MEQ/L (3.5-5.1) Chloride Level 110 MEQ/L (98-107) 111 MEQ/L (98-107) Carbon Dioxide Level 23.3 MEQ/L (21.0-32.0) 24.5 MEQ/L (21.0-32.0) Anion Gap 9 MEQ/L (5-15) 8 MEQ/L (5-15) Estimat Glomerular Filtration Rate 52 ML/MIN (>89) 67 ML/MIN (>89) Prothrombin Time 11.2 SEC (9.8-11.6) Prothromb Time International Ratio 1.0 RATIO Total Creatine Kinase 351 U/L (26-192) 628 U/L (26-192) Creatine Kinase MB 2.8 NG/ML (0.5-3.6) 12.0 NG/ML (0.5-3.6) Creatine Kinase MB % 0.8 % (0.0-4.0) 1.9 % (0.0-4.0) Urine Color YELLOW (YELLW/STRAW) Urine Turbidity CLEAR (CLEAR) Urine pH 5.5 (5.0-8.5) Urine Specific [place] 1.014 (1.002-1.035) Urine Protein 30 mg/dL (NEG-TRACE) Urine Glucose (UA) NEG mg/dL (NEG) Urine Ketones TRACE mg/dL (NEG) Urine Occult Blood SMALL (NEG) Urine Nitrite NEG (NEG) Urine Bilirubin NEG (NEG) Urine Urobilinogen LESS THAN 2.0 MG/DL (LESS Urine Leukocyte Esterase NEG (NEG) Urine WBC 1 /hpf (0-5) Urine Squamous Epithelial Cells <1 /hpf (0-5) Urine Amorphous Sediment RARE Microscopic Urinalysis Comment CATH-CULT NOT IND Platelet Estimate NORMAL (NORMAL) Platelet Morphology Comment NORMAL (NORMAL) Total Protein 6.0 GM/DL (6.4-8.2) Alkaline Phosphatase 108 U/L (45-117) Aspartate Amino Transf (AST/SGOT) 44 U/L (15-37) Alanine Aminotransferase (ALT/SGPT) 32 U/L (10-53) Total Bilirubin 1.5 MG/DL (0.2-1.0) Direct Bilirubin 0.6 MG/DL (0.0-0.2) Indirect Bilirubin 0.9 MG/DL (0.0-0.8) Test 05/17/17 08:29 White Blood Count 13.4 TH/MM3 (4.0-11.0) Red Blood Count 2.24 MIL/MM3 (4.00-5.30) Hemoglobin 6.5 GM/DL (11.6-15.3) Hematocrit 20.1 % (35.0-46.0) Mean Corpuscular Volume 89.8 FL (80.0-100.0) Mean Corpuscular Hemoglobin 29.0 PG (27.0-34.0) Mean Corpuscular Hemoglobin Concent 32.3 % (32.0-36.0) Red Cell Distribution Width 15.3 % (11.6-17.2) Platelet Count 403 TH/MM3 (150-450) Mean Platelet Volume 6.9 FL (7.0-11.0) Neutrophils (%) (Auto) 72.3 % (16.0-70.0) Lymphocytes (%) (Auto) 13.0 % (9.0-44.0) Monocytes (%) (Auto) 11.9 % (0.0-8.0) Eosinophils (%) (Auto) 2.6 % (0.0-4.0) Basophils (%) (Auto) 0.2 % (0.0-2.0) Neutrophils # (Auto) 9.7 TH/MM3 (1.8-7.7) Lymphocytes # (Auto) 1.7 TH/MM3 (1.0-4.8) Monocytes # (Auto) 1.6 TH/MM3 (0-0.9) Eosinophils # (Auto) 0.4 TH/MM3 (0-0.4) Basophils # (Auto) 0.0 TH/MM3 (0-0.2) CBC Comment AUTO DIFF Blood Urea Nitrogen 17 MG/DL (7-18) Creatinine 0.78 MG/DL (0.50-1.00) Random Glucose 90 MG/DL (74-106) Albumin 2.2 GM/DL (3.4-5.0) Calcium Level 8.4 MG/DL (8.5-10.1) Phosphorus Level 2.4 MG/DL (2.5-4.9) Magnesium Level 2.0 MG/DL (1.5-2.5) Sodium Level 140 MEQ/L (136-145) Potassium Level 3.4 MEQ/L (3.5-5.1) Chloride Level 108 MEQ/L (98-107) Carbon Dioxide Level 25.8 MEQ/L (21.0-32.0) Anion Gap 6 MEQ/L (5-15) Estimat Glomerular Filtration Rate 71 ML/MIN (>89) . Result Diagram: 05/17/17 0829 05/17/17 0829 Procedures 05/14/17: EGD/Colonoscopy. . 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 Her son is unfortunately and she is no longer in contact with her daughter. She has currently been to her second for over 40 years. They have lived in [place] for the past 19 years and were snow birds prior to this. . Spiritual: Nondenominational. Legal: None known. Ethical issues impacting care: None known. Important Contacts Gabriele Salcido (): [phone]. . 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 Now suffering from hospital induced delirium and remains anemic. Due to her advanced age and multiple comorbidities she is at an ongoing risk for further set backs and complications. Code Status: No Code Plan * Legal decision maker: Patient designated her Mohan Gomez as her HCS. * CODE STATUS: DNR * GOALS: Aggressive short of resuscitation. Patient's states he wants to get her stabilized so she can return to the long term. * SYMPTOM MANAGEMENT: * --Malnutrition: Patient is at an ongoing risk for malnutrition secondary to clinical condition, bed bound status, advanced age. 05/16 Albumin:2.3. Patient currently on heart healthy diet, receiving ensure with meals. No recommendations at this time. * --Confusion: Patient awake and alert today. Mild forgetfulness but confusion has greatly improved since yesterday. Seroquel 25mg HS started 05/15/17. Recommend ongoing reorientation. * --Anxiety: Improved. No anti-anxiety medications ordered at this time. Due to patient's advanced age and multiple comorbidities benzodiazepines should be used sparingly. No recommendations at this time. * Palliative care will continue to follow during hospital course as condition evolves, to assist patient/family/decision-maker with understanding of medical conditions, weighing benefit/burdens of treatment options, for clarification of goals of treatment. Additionally will assist with symptoms of palliative concern. * . Attestation To help prompt me to consider important information that might be impacting today's encounter and assessment, information from prior notes written by myself or my colleagues may have been "brought forward" into today's note. My signature on this note, however, is an attestation that I personally performed the exam, history, and/or decision-making noted today, and, unless otherwise indicated, the interactions with patient, family, and staff as well as the review of records all occurred today. I also attest that the listed assessment and stated plan reflect my best clinical judgment today based on the combination of historical information, prior notes, and today's exam/ interactions. When time spent is documented, it refers only to time spent today by the signer, or if indicated, combined time spent today by collaborating physician/nurse practitioner. Oumou Garcia May 17, 2017 10:33
--- NOTE | 2017-05-17 11:20 | HHI.PR ---
Subjective Remarks Patient seen this morning around 10 AM. Says she is feeling well. Denies any pain. says she is much improved. Mental status about back to baseline. Feels like she can go back to rehabilitation tomorrow. Objective Vital Signs Date Time Temp Pulse Resp B/P (MAP) Pulse Ox O2 Delivery O2 Flow Rate FiO2 05/17/17 07:50 98.2 72 20 170/72 (104) 97 05/17/17 04:00 98.1 79 17 146/62 (90) 96 05/17/17 00:00 98.0 70 17 152/69 (96) 98 05/16/17 22:15 97.3 76 17 156/65 (95) 100 05/16/17 20:00 70 05/16/17 20:00 98.3 70 14 166/69 (101) 100 05/16/17 19:00 100 Nasal Cannula 2.00 05/16/17 18:00 70 05/16/17 17:30 16 05/16/17 16:10 18 05/16/17 16:01 98.0 70 18 170/65 (100) 05/16/17 16:00 75 05/16/17 15:58 Nasal Cannula 05/16/17 14:00 84 05/16/17 12:00 72 05/16/17 12:00 97.6 71 13 121/60 (80) 96 I/O 05/16/17 05/16/17 05/16/17 05/17/17 05/17/17 05/17/17 07:00 15:00 23:00 07:00 15:00 23:00 Intake Total 580 ml 205 ml 600 ml Output Total 1100 ml Balance -520 ml 205 ml 600 ml Intake Oral 600 ml IV Total 580 ml 205 ml Output Urine Total 1100 ml # Voids 3 4 2 Result Diagram: 05/17/1782805/17/17828 Objective Remarks GENERAL: Sitting up in bed. Awake, alert. SKIN: Warm and dry. HEAD: Normocephalic. EYES: No scleral icterus. No injection or drainage. NECK: Supple, trachea midline. No JVD. CARDIOVASCULAR: Regular rate and rhythm without murmurs, gallops, or rubs. RESPIRATORY: Breath sounds equal bilaterally. No accessory muscle use. GASTROINTESTINAL: Abdomen soft, non-tender, nondistended. MUSCULOSKELETAL: No cyanosis, or edema. Patient does have ecchymosis of the left inner thigh without any broken skin. Again, no change from yesterday. BACK: Nontender without obvious deformity. No CVA tenderness. A/P Assessment and Plan =====05/17/17 //Hospital-induced delirium. -Improved yesterday morning, worsened with own last night, however much improved today. Continue Seroquel at night. Frequent reorientation. //Anemia. Going down to 6.5 today from 7.1. No signs of bleeding or worsening of hematoma. Continue to monitor //Acute kidney injury. Resolved. Creatinine 0.8 from 2.0 on admission. //Elevated CK. -ck yesterday up to 628. likley from left lower extremity injury. Repeat ordered for today. //Leukocytosis 13.4. Possibly from stress as patient was agitated last night. Continue to monitor for signs of infection. // GI Bleed: Severe. On Coumadin for h/o DVT, INR elevated, Hgb trending down , 7.7 from outpatient labs earlier today, currently Hgb 6.8. On Protonix gtt, will continue. GI Consulted by ER physician, plan is for EGD/Colonoscopy in am , prep to be done tonight. Pt does not want transfusion of blood products if needed. =05/14 Place consult for hematology. Appreciate assistance. Respiratory no ordered. Status post iv iron. Appreciate GI assistance. = Colonoscopy with possible ischemic colitis. Pathology pending. Appreciate GI assistance. // Anemia: Secondary to acute blood loss. Hgb 6.8 on admission. S/p Iron IV in ER as pt declining transfusion. Monitor Hgb/Hct. Limit blood draws as possible =05/14 Place consult for hematology. Appreciate assistance. Respiratory no ordered. Status post iv iron. Appreciate GI assistance. // Chronic Anticoagulation: h/o DVT on Coumadin, supratherapeutic INR 4.57 05/12 and 3.9 on 05/11/17 per records. INR currently 1.9, s/p Vitamin K. Repeat INR in am. = 05/14 INR 1.3. Continue to Hold Coumadin for active bleeding. Hematology following. Appreciate assistance. // SEBASTIAN: Creatinine 2.01 on admission, previously 0.80 on 03/15/17. = 05/14. Creatinine 1.66, improved from yesterday. Continue IV fluids. Continue to monitor. // Sabianism: Pt confirms she is Jehova's Witness and does not want to receive any form of blood products. //Suspected dementia. reports dementia symptoms at baseline. //Soft tissue injury with ecchymosis of left thigh. No tenderness with hip joint. No broken skin. Continue to monitor. -CT with hematoma. Ultrasound negative for DVT. Appreciate hematology assistance. // DNR: Code Status confirmed, pt DNR. // DVT Prophylaxis: Pharmacologic contraindication secondary to active GI Bleed. Discharge Planning Continue to monitor hemoglobin. Decreasing at this time Reid Fernandez MD May 17, 2017 11:20
--- NOTE | 2017-05-17 11:27 | PD.ONC.PN ---
Subjective Subjective Remarks Afebrile overnight. Patient resting in bed in nad. Hemoglobin dropped overnight. No obvious bleeding. No worsening of thigh hematoma. Objective Data Date Time Temp Pulse Resp B/P (MAP) Pulse Ox O2 Delivery O2 Flow Rate FiO2 05/17/17 07:50 98.2 72 20 170/72 (104) 97 05/17/17 04:00 98.1 79 17 146/62 (90) 96 05/17/17 00:00 98.0 70 17 152/69 (96) 98 05/16/17 22:15 97.3 76 17 156/65 (95) 100 05/16/17 20:00 70 05/16/17 20:00 98.3 70 14 166/69 (101) 100 05/16/17 19:00 100 Nasal Cannula 2.00 05/16/17 18:00 70 05/16/17 17:30 16 05/16/17 16:10 18 05/16/17 16:01 98.0 70 18 170/65 (100) 05/16/17 16:00 75 05/16/17 15:58 Nasal Cannula 05/16/17 14:00 84 05/16/17 12:00 72 05/16/17 12:00 97.6 71 13 121/60 (80) 96 Result Diagram: 05/17/17 0829 05/17/17 0829 Laboratory Results Laboratory Tests Test 05/17/17 08:29 White Blood Count 13.4 TH/MM3 Red Blood Count 2.24 MIL/MM3 Hemoglobin 6.5 GM/DL Hematocrit 20.1 % Mean Corpuscular Volume 89.8 FL Mean Corpuscular Hemoglobin 29.0 PG Mean Corpuscular Hemoglobin Concent 32.3 % Red Cell Distribution Width 15.3 % Platelet Count 403 TH/MM3 Mean Platelet Volume 6.9 FL Neutrophils (%) (Auto) 72.3 % Lymphocytes (%) (Auto) 13.0 % Monocytes (%) (Auto) 11.9 % Eosinophils (%) (Auto) 2.6 % Basophils (%) (Auto) 0.2 % Neutrophils # (Auto) 9.7 TH/MM3 Lymphocytes # (Auto) 1.7 TH/MM3 Monocytes # (Auto) 1.6 TH/MM3 Eosinophils # (Auto) 0.4 TH/MM3 Basophils # (Auto) 0.0 TH/MM3 CBC Comment AUTO DIFF Blood Urea Nitrogen 17 MG/DL Creatinine 0.78 MG/DL Random Glucose 90 MG/DL Albumin 2.2 GM/DL Calcium Level 8.4 MG/DL Phosphorus Level 2.4 MG/DL Magnesium Level 2.0 MG/DL Sodium Level 140 MEQ/L Potassium Level 3.4 MEQ/L Chloride Level 108 MEQ/L Carbon Dioxide Level 25.8 MEQ/L Anion Gap 6 MEQ/L Estimat Glomerular Filtration Rate 71 ML/MIN Administered Medications Medications (Trade) Dose Ordered Sig/Marin Route PRN Reason Start Time Stop Time Status Last Admin Dose Admin Sodium Chloride (NS Flush) 2 ml BID IV FLUSH 05/14/17 09:00 05/17/17 10:09 Ondansetron HCl (Zofran Inj) 4 mg Q6H PRN IVP NAUSEA OR VOMITING 05/13/17 23:15 05/16/17 08:32 Acetaminophen (Tylenol) 650 mg Q6H PRN PO FEVER/PAIN SCALE 1 TO 2 05/13/17 23:15 05/17/17 11:18 Acetaminophen/ Hydrocodone Bitart ([place] 5-325 Mg) 1 tab Q4H PRN PO PAIN SCALE 3 TO 5 05/13/17 23:15 05/17/17 02:56 Senna/Docusate Sodium (January-Colace) 1 tab BID PO 05/14/17 09:00 05/17/17 10:08 Escitalopram Oxalate (Lexapro) 10 mg DAILY PO 05/14/17 09:00 05/17/17 10:08 Fludrocortisone Acetate (Florinef) 0.1 mg DAILY PO 05/14/17 09:00 05/17/17 10:08 Epoetin Floyd (Epogen Inj) 20,000 units EVERY OTHER DAY SQ 05/14/17 13:15 05/16/17 18:35 Quetiapine Fumarate (SEROquel) 25 mg HS PO 05/15/17 21:00 05/15/17 19:59 Objective Remarks GENERAL: Frail elderly female supine in bed in nad. SKIN: Warm and dry. HEAD: Normocephalic. EYES: No injection or drainage. NECK: Supple, trachea midline. CARDIOVASCULAR: +S1/S2 RESPIRATORY: Breath sounds equal bilaterally. No accessory muscle use. GASTROINTESTINAL: Abdomen soft, non-tender, nondistended. EXTREMITIES: No cyanosis NEUROLOGICAL: awake and alert, normal speech. Assessment/Plan Problem List: (1) Normocytic anemia ICD Codes: D64.9 - Anemia, unspecified Plan: --reported melanotic stool. --EGD showed esophagitis/gastritis --also with large hematoma left leg. --is a Alevism and does not want blood transfusion. --on Venofer infusion. --receives Procrit qod (2) Right leg DVT ICD Codes: I82.401 - Acute embolism and thrombosis of unspecified deep veins of right lower extremity Plan: --Due to anemia/bleeding --not a candidate for anticoagulation at this point --Monitor closely for recurrent clot. --repeat u/s shows no DVT Assessment 81y/o Alevism brought into to the emergency room with a drop in hemoglobin as well as elevated INR. Recent right lower extremity deep venous thrombosis. Hypertension. Hyperlipidemia. Coronary artery bypass graft surgery. Arthroscopic right knee surgery. Coronary stent placement. Bilateral tubal ligation. Plan 1. continue qod Procrit 2. monitor CBC 3. hold anticoagulation Attending Statement The exam, history, and the medical decision-making described in the above note were completed with the assistance of the mid-level provider. I reviewed and agree with the findings presented. I attest that I had a [id number] encounter with the patient on the same day, and personally performed and documented my assessment and findings in the medical record. Pt is more calm today. Hgb trended lower. Right thigh hematoma looks better. No obvious bleeding. Continue Procrit. Not a candidate for anticoagulation. Discussed with pt's and he understand the competing needs. Lesa Singh May 17, 2017 11:27 Tyrone Lopez MD May 17, 2017 16:31
[2017-05-17 12:54] LABS: CKMB 3.4 NG/ML (0.5-3.6)
[2017-05-17 12:56] LABS: BANDS 12 % (0-6); EOSINOPHILS 3 % (0-4); METAMYELOCYTES 1 % (0-1); NEUTROPHIL # MANUAL DIFF 9.9 TH/MM3 (1.8-7.7); PLASMA CELLS 1 % (0-0); POLYS (SEG NEUTROPHILS) 61 % (16-70); WBC DIFF SAMPLE 100
[2017-05-17 12:57] LABS: PLATELET ESTIMATE SMEAR NORMAL (NORMAL); PLATELET MORPHOLOGY NORMAL (NORMAL); SCAN/DIFF FINAL DIFF MANUAL
[2017-05-17] MEDS: QUEtiapine FUMARATE 25 MG TAB PO SCH (20:16)
[2017-05-17] MEDS: PANTOPRAZOLE SOD 20 MG DELAYED RELEASE TAB PO SCH (20:16)
[2017-05-18] VITALS (7 sets, daily range): BP systolic 141–202; BP diastolic 70–90; PULSE 66–93; RESP 16–20; TEMP 96.1–98.7; O2SAT 93–100
[2017-05-18] MEDS ORDERED: amLODIPine BESYLATE 5 MG TAB PO ONE (00:15)
[2017-05-18] MEDS: LEVOTHYROXINE SODIUM 125 MCG TAB PO SCH (03:57)
[2017-05-18] MEDS: SODIUM CHLORIDE 0.9% FLUSH 10 ML FLUSH IV FLUSH SCH ×2 (09:00→20:27)
[2017-05-18] MEDS: ESCITALOPRAM OXALATE 10 MG TAB PO SCH (09:08)
[2017-05-18] MEDS: DOCUSATE SODIUM 50 MG/SENNA 8.6 MG TAB PO SCH ×2 (09:08→20:25)
[2017-05-18] MEDS: FLUDROCORTISONE ACETATE 0.1 MG TAB PO SCH (09:09)
[2017-05-18] MEDS: ENALAPRILAT 2.5 MG/2 ML VIAL IV PUSH PRN (09:10)
--- NOTE | 2017-05-18 11:11 | PD.ONC.PN ---
Subjective Subjective Remarks Afebrile overnight. Patient resting in bed in nad. No complaints. Objective Data Date Time Temp Pulse Resp B/P (MAP) Pulse Ox O2 Delivery O2 Flow Rate FiO2 05/18/17 10:30 Room Air 05/18/17 08:58 97 Nasal Cannula 3.00 05/18/17 07:50 96.7 73 20 194/86 (122) 97 05/18/17 04:00 96.7 66 16 161/70 (100) 100 05/18/17 00:00 96.1 71 16 182/79 (113) 96 05/17/17 20:00 97.0 87 18 180/82 (114) 97 05/17/17 15:50 96.7 74 20 168/75 (106) 98 05/17/17 14:50 95 Nasal Cannula 3.00 05/17/17 11:30 98.4 83 20 133/75 (94) 97 Result Diagram: 05/17/17 0829 05/17/17 0829 Administered Medications Medications (Trade) Dose Ordered Sig/Marin Route PRN Reason Start Time Stop Time Status Last Admin Dose Admin Sodium Chloride (NS Flush) 2 ml BID IV FLUSH 05/14/17 09:00 05/17/17 20:42 Ondansetron HCl (Zofran Inj) 4 mg Q6H PRN IVP NAUSEA OR VOMITING 05/13/17 23:15 05/16/17 08:32 Acetaminophen (Tylenol) 650 mg Q6H PRN PO FEVER/PAIN SCALE 1 TO 2 05/13/17 23:15 05/17/17 11:18 Acetaminophen/ Hydrocodone Bitart ([place] 5-325 Mg) 1 tab Q4H PRN PO PAIN SCALE 3 TO 5 05/13/17 23:15 05/17/17 20:16 Senna/Docusate Sodium (January-Colace) 1 tab BID PO 05/14/17 09:00 05/18/17 09:08 Escitalopram Oxalate (Lexapro) 10 mg DAILY PO 05/14/17 09:00 05/18/17 09:08 Fludrocortisone Acetate (Florinef) 0.1 mg DAILY PO 05/14/17 09:00 05/18/17 09:09 Epoetin Floyd (Epogen Inj) 20,000 units EVERY OTHER DAY SQ 05/14/17 13:15 05/16/17 18:35 Levothyroxine Sodium (Synthroid) 125 mcg DAILY@0600 PO 05/16/17 06:00 05/18/17 03:57 Quetiapine Fumarate (SEROquel) 25 mg HS PO 05/15/17 21:00 05/17/17 20:16 Pantoprazole Sodium (Protonix) 20 mg Q24H PO 05/16/17 21:00 05/17/17 20:16 Enalaprilat (Vasotec Inj) 2.5 mg Q6H PRN IV PUSH bp>160/90 05/18/17 00:15 05/18/17 09:10 Objective Remarks GENERAL: Frail elderly female lying supine in bed resting SKIN: Warm and dry. HEAD: Normocephalic. EYES: No injection or drainage. NECK: Supple, trachea midline. CARDIOVASCULAR: +S1/S2 RESPIRATORY: Breath sounds equal bilaterally. No accessory muscle use. GASTROINTESTINAL: Abdomen soft, non-tender, nondistended. EXTREMITIES: No cyanosis NEUROLOGICAL: awake and alert, normal speech. moving all extremities. Assessment/Plan Problem List: (1) Normocytic anemia ICD Codes: D64.9 - Anemia, unspecified Plan: --reported melanotic stool. --EGD showed esophagitis/gastritis --also with large hematoma left leg. --is a Mandaen and does not want blood transfusion. --on Venofer infusion. --receives Procrit qod (2) Right leg DVT ICD Codes: I82.401 - Acute embolism and thrombosis of unspecified deep veins of right lower extremity Plan: --Due to anemia/bleeding --not a candidate for anticoagulation at this point --Monitor closely for recurrent clot. --repeat u/s shows no DVT Assessment 81y/o Mandaen brought into to the emergency room with a drop in hemoglobin as well as elevated INR. Recent right lower extremity deep venous thrombosis. Hypertension. Hyperlipidemia. Coronary artery bypass graft surgery. Arthroscopic right knee surgery. Coronary stent placement. Bilateral tubal ligation. Plan 1. Procrit today 2. monitor CBC 3. hold anticoagulation Attending Statement The exam, history, and the medical decision-making described in the above note were completed with the assistance of the mid-level provider. I reviewed and agree with the findings presented. I attest that I had a [id number] encounter with the patient on the same day, and personally performed and documented my assessment and findings in the medical record. More alert today. Let thigh hematoma stable. Continue procrit. Will give more venofer tomorrow. Minimize blood draw. Monitor CBC. Lesa Singh May 18, 2017 11:06 Tyrone Lopez MD May 18, 2017 11:16
[2017-05-18 11:19] LABS: AUTOMATED NEUTROPHIL # 13.8 TH/MM3 (1.8-7.7); BASOPHIL # 0.1 TH/MM3 (0-0.2); BASOPHIL % 0.4 % (0.0-2.0); EOSINOPHIL # 0.3 TH/MM3 (0-0.4); EOSINOPHIL % 1.5 % (0.0-4.0); HEMATOCRIT 21.5 % (35.0-46.0); LYMPH % 9.1 % (9.0-44.0); LYMPHOCYTE # 1.5 TH/MM3 (1.0-4.8); MEAN CELL VOLUME 89.6 FL (80.0-100.0); MEAN CORPUSCULAR HEMOGLOBIN 30.2 PG (27.0-34.0); MEAN CORPUSCULAR HGB CONC 33.7 % (32.0-36.0); PLATELET COUNT 467 TH/MM3 (150-450); RED CELL DISTRIBUTION WIDTH 15.5 % (11.6-17.2)
[2017-05-18 11:21] LABS: HEMO FLAGS AUTO DIFF
[2017-05-18 11:44] LABS: BICARBONATE 26.9 MEQ/L (21.0-32.0); POTASSIUM 3.1 MEQ/L (3.5-5.1)
[2017-05-18 11:53] LABS: MAGNESIUM 1.9 MG/DL (1.5-2.5)
[2017-05-18] MEDS: EPOETIN ALFA 20,000 UNITS/ML VIAL SQ SCH (12:00)
[2017-05-18 12:10] LABS: BANDS 21 % (0-6); EOSINOPHILS 3 % (0-4); METAMYELOCYTES 2 % (0-1); MYELOCYTES 4 % (0-0); NEUTROPHIL # MANUAL DIFF 13.8 TH/MM3 (1.8-7.7); PLASMA CELLS 1 % (0-0); POLYS (SEG NEUTROPHILS) 54 % (16-70); WBC DIFF SAMPLE 100
[2017-05-18 12:11] LABS: DOHLE BODIES PRESENT (NONE SEEN); PLATELET ESTIMATE SMEAR HIGH (NORMAL); PLATELET MORPHOLOGY NORMAL (NORMAL); TOXIC GRANULATION 1+ (NORMAL)
[2017-05-18 12:12] LABS: POLYCHROMASIA 2.3 % (0.0-1.9); SCAN/DIFF FINAL DIFF MANUAL
[2017-05-18] MEDS ORDERED: POTASSIUM CHLORIDE 10 MEQ CONTROLLED RELEASE TAB PO ONE (13:00)
[2017-05-18] MEDS ORDERED: POTASSIUM PHOSPHATE INJ 15 MMOL in SODIUM CHLORIDE 0.9% INJ 150 ML IV ONE (14:00)
--- NOTE | 2017-05-18 14:53 | RADRPT ---
EXAM DATE/TIME: 05/18/2017 14:38 [facility] COMPARISON: No previous studies available for comparison. INDICATIONS : Nausea. Lower chest and upper abdominal discomfort. MEDICAL HISTORY : Deep venous thrombosis. SURGICAL HISTORY : Tubal ligation. Open heart. ENCOUNTER: Initial ACUITY: 2 days PAIN SCORE: 2/10 LOCATION: Bilateral lower chest FINDINGS: A single view of the chest demonstrates minimal left basilar density. Heart normal in size. Previous median sternotomy. Osseous structures are intact. CONCLUSION: Minimal left basilar infiltrate. Juwan Gonzalez MD on May 18, 2017 at 14:51 Board Certified Radiologist. This report was verified electronically.
[2017-05-18 15:00] LABS: INDIRECT BILIRUBIN 0.6 MG/DL (0.0-0.8)
[2017-05-18] MEDS ORDERED: NIFEdipine 30 MG SUSTAINED RELEASE TAB PO ONE (15:15)
[2017-05-18] MEDS: FUROSEMIDE 20 MG TAB PO SCH (15:30)
[2017-05-18] MEDS: ACETAMINOPHEN/HYDROcodone 325 MG/5 MG TAB PO PRN (17:03)
[2017-05-18] MEDS ORDERED: LEVOFLOXACIN 750 MG TAB PO ONE (18:30)
--- NOTE | 2017-05-18 18:34 | HHI.PR ---
Subjective Remarks Patient seen this morning around 10 AM. Says she's feeling well. Denies any chest pain or shortness of breath. Denies any nausea or vomiting. Denies any bleeding. Denies any pain in her leg. Objective Vital Signs Date Time Temp Pulse Resp B/P (MAP) Pulse Ox O2 Delivery O2 Flow Rate FiO2 05/18/17 11:50 96.7 82 20 200/70 (113) 99 05/18/17 10:30 Room Air 05/18/17 08:58 97 Nasal Cannula 3.00 05/18/17 07:50 96.7 73 20 194/86 (122) 97 05/18/17 04:00 96.7 66 16 161/70 (100) 100 05/18/17 00:00 96.1 71 16 182/79 (113) 96 05/17/17 20:00 97.0 87 18 180/82 (114) 97 I/O 05/17/17 05/17/17 05/17/17 05/18/17 05/18/17 05/18/17 07:00 15:00 23:00 07:00 15:00 23:00 Intake Total 237 ml Balance 237 ml Intake Oral 237 ml # Voids 2 2 2 # Bowel Movements 0 Result Diagram: 05/18/17 1100 05/18/17 1100 Objective Remarks GENERAL: Sitting up in bed. Awake, alert.smiling today. at bedside. SKIN: Warm and dry. HEAD: Normocephalic. EYES: No scleral icterus. No injection or drainage. NECK: Supple, trachea midline. No JVD. CARDIOVASCULAR: Regular rate and rhythm without murmurs, gallops, or rubs. RESPIRATORY: Breath sounds equal bilaterally. No accessory muscle use. GASTROINTESTINAL: Abdomen soft, non-tender, nondistended. MUSCULOSKELETAL: No cyanosis, or edema. Patient does have ecchymosis of the left inner thigh without any broken skin. Again, no change from yesterday. BACK: Nontender without obvious deformity. No CVA tenderness. A/P Assessment and Plan =====05/18/17 //Hospital-induced delirium. -Appears to be resolved. Continue Seroquel. //Anemia. Secondary to hematoma. Hemoglobin 7.3 today. Improving. //Elevated CK. -Resolved. Down to 260 yesterday. //Leukocytosis worsening 17.0 today.. Likely secondary to a hematoma. Chest x- ray was small left basilar atelectasis. Anabiotic started //Left basilar infiltrate. Possible pneumonia. Incentive spirometry and Acapella ordered. Levaquin started. //Hypokalemia. Replaced //Hypophosphatemia. Phosphorus 1.6. Replaced. //Accelerated Hypertension. Systolic blood pressure to 200 today. We'll discontinue fludrocortisone. Restart home Lasix. Start nifedipine. // GI Bleed: Severe. On Coumadin for h/o DVT, INR elevated, Hgb trending down , 7.7 from outpatient labs earlier today, currently Hgb 6.8. On Protonix gtt, will continue. GI Consulted by ER physician, plan is for EGD/Colonoscopy in am , prep to be done tonight. Pt does not want transfusion of blood products if needed. =05/14 Place consult for hematology. Appreciate assistance. Respiratory no ordered. Status post iv iron. Appreciate GI assistance. = Colonoscopy with possible ischemic colitis. Pathology pending. Appreciate GI assistance. // Anemia: Secondary to acute blood loss. Hgb 6.8 on admission. S/p Iron IV in ER as pt declining transfusion. Monitor Hgb/Hct. Limit blood draws as possible =05/14 Place consult for hematology. Appreciate assistance. Respiratory no ordered. Status post iv iron. Appreciate GI assistance. // Chronic Anticoagulation: h/o DVT on Coumadin, supratherapeutic INR 4.57 05/12 and 3.9 on 05/11/17 per records. INR currently 1.9, s/p Vitamin K. Repeat INR in am. = 05/14 INR 1.3. Continue to Hold Coumadin for active bleeding. Hematology following. Appreciate assistance. // SEBASTIAN: Creatinine 2.01 on admission, previously 0.80 on 03/15/17. = 05/14. Creatinine 1.66, improved from yesterday. Continue IV fluids. Continue to monitor. // Judaism: Pt confirms she is Jehova's Witness and does not want to receive any form of blood products. //Suspected dementia. reports dementia symptoms at baseline. //Soft tissue injury with ecchymosis of left thigh. No tenderness with hip joint. No broken skin. Continue to monitor. -CT with hematoma. Ultrasound negative for DVT. Appreciate hematology assistance. //Acute kidney injury. Resolved. Creatinine 0.8 from 2.0 on admission. // DNR: Code Status confirmed, pt DNR. // DVT Prophylaxis: Pharmacologic contraindication secondary to anemia, hematoma. Discharge Planning Continue to monitor hemoglobin. appears to be stabilizing. Possible discharge to SNF tomorrow if doing well and white count trending down. Reid Fernandez MD May 18, 2017 18:34
[2017-05-18] MEDS: QUEtiapine FUMARATE 25 MG TAB PO SCH (20:25)
[2017-05-18] MEDS: PANTOPRAZOLE SOD 20 MG DELAYED RELEASE TAB PO SCH (20:25)
[2017-05-19] VITALS: BP 153/68; PULSE 79; RESP 18; TEMP 97.3; O2SAT 93
[2017-05-19 04:00] VITALS: BP 181/78; PULSE 70; RESP 18; TEMP 98.3; O2SAT 92
[2017-05-19] MEDS: LEVOTHYROXINE SODIUM 125 MCG TAB PO SCH (06:00)
[2017-05-19 06:49] LABS: AUTOMATED NEUTROPHIL # 13.8 TH/MM3 (1.8-7.7); BASOPHIL % 0.2 % (0.0-2.0); EOSINOPHIL # 0.2 TH/MM3 (0-0.4); EOSINOPHIL % 1.2 % (0.0-4.0); HEMATOCRIT 23.8 % (35.0-46.0); LYMPH % 13.4 % (9.0-44.0); LYMPHOCYTE # 2.4 TH/MM3 (1.0-4.8); MEAN CELL VOLUME 90.3 FL (80.0-100.0); MEAN CORPUSCULAR HEMOGLOBIN 30.2 PG (27.0-34.0); MEAN CORPUSCULAR HGB CONC 33.4 % (32.0-36.0); MONO % 8.8 % (0.0-8.0); NEUT % 76.4 % (16.0-70.0); PLATELET COUNT 452 TH/MM3 (150-450); RED BLOOD COUNT 2.64 MIL/MM3 (4.00-5.30); RED CELL DISTRIBUTION WIDTH 15.2 % (11.6-17.2); WHITE BLOOD COUNT 18.1 TH/MM3 (4.0-11.0)
[2017-05-19 07:04] LABS: HEMO FLAGS AUTO DIFF
[2017-05-19 07:15] LABS: MAGNESIUM 1.7 MG/DL (1.5-2.5); POTASSIUM 3.1 MEQ/L (3.5-5.1)
[2017-05-19 08:00] VITALS: BP 175/74; PULSE 76; RESP 20; TEMP 98.1; O2SAT 97
[2017-05-19 08:20] LABS: BANDS 18 % (0-6); CORRECTED NUCLEATED RBC 3 /100 WBC (0-0); EOSINOPHILS 1 % (0-4); METAMYELOCYTES 6 % (0-1); MYELOCYTES 3 % (0-0); NEUTROPHIL # MANUAL DIFF 15.2 TH/MM3 (1.8-7.7); POLYS (SEG NEUTROPHILS) 57 % (16-70); TOXIC GRANULATION 1+ (NORMAL); WBC DIFF SAMPLE 100
[2017-05-19 08:21] LABS: PLATELET ESTIMATE SMEAR HIGH (NORMAL); PLATELET MORPHOLOGY NORMAL (NORMAL); SCAN/DIFF FINAL DIFF MANUAL
[2017-05-19] MEDS: NIFEdipine 30 MG SUSTAINED RELEASE TAB PO SCH (08:21)
[2017-05-19] MEDS: LEVOFLOXACIN 750 MG TAB PO SCH (08:21)
[2017-05-19] MEDS: DOCUSATE SODIUM 50 MG/SENNA 8.6 MG TAB PO SCH ×2 (08:21→20:02)
[2017-05-19] MEDS: FUROSEMIDE 20 MG TAB PO SCH (08:21)
[2017-05-19] MEDS: ESCITALOPRAM OXALATE 10 MG TAB PO SCH (08:21)
[2017-05-19] MEDS: SODIUM CHLORIDE 0.9% FLUSH 10 ML FLUSH IV FLUSH SCH ×2 (08:24→20:02)
[2017-05-19] MEDS ORDERED: POTASSIUM CHLORIDE 10 MEQ CONTROLLED RELEASE TAB PO ONE (10:00)
--- NOTE | 2017-05-19 11:12 | PD.ONC.PN ---
Subjective Subjective Remarks Afebrile overnight. Patient resting in room in nad. No complaints. Eager to go back to nursing facility. Objective Data Date Time Temp Pulse Resp B/P (MAP) Pulse Ox O2 Delivery O2 Flow Rate FiO2 05/19/17 08:00 98.1 76 20 175/74 (107) 97 05/19/17 04:00 98.3 70 18 181/78 (112) 92 05/19/17 00:00 97.3 79 18 153/68 (96) 93 05/18/17 21:26 21 05/18/17 20:33 96 2.00 05/18/17 20:00 98.7 93 18 141/82 (101) 93 05/18/17 19:00 16 05/18/17 15:50 97.8 78 20 202/90 (127) 96 05/18/17 11:50 96.7 82 20 200/70 (113) 99 05/19/17 05/19/17 05/19/17 07:00 15:00 23:00 Intake Total 480 ml Balance 480 ml Result Diagram: 05/19/17 0610 05/19/17 0618 Laboratory Results Laboratory Tests Test 05/19/17 06:10 05/19/17 06:18 White Blood Count 18.1 TH/MM3 Red Blood Count 2.64 MIL/MM3 Hemoglobin 8.0 GM/DL Hematocrit 23.8 % Mean Corpuscular Volume 90.3 FL Mean Corpuscular Hemoglobin 30.2 PG Mean Corpuscular Hemoglobin Concent 33.4 % Red Cell Distribution Width 15.2 % Platelet Count 452 TH/MM3 Mean Platelet Volume 7.1 FL Neutrophils (%) (Auto) 76.4 % Lymphocytes (%) (Auto) 13.4 % Monocytes (%) (Auto) 8.8 % Eosinophils (%) (Auto) 1.2 % Basophils (%) (Auto) 0.2 % Neutrophils # (Auto) 13.8 TH/MM3 Lymphocytes # (Auto) 2.4 TH/MM3 Monocytes # (Auto) 1.6 TH/MM3 Eosinophils # (Auto) 0.2 TH/MM3 Basophils # (Auto) 0.0 TH/MM3 CBC Comment AUTO DIFF Differential Total Cells Counted 100 Neutrophils % (Manual) 57 % Band Neutrophils % 18 % Lymphocytes % 7 % Monocytes % 8 % Eosinophils % 1 % Neutrophils # (Manual) 15.2 TH/MM3 Metamyelocytes 6 % Myelocytes 3 % Nucleated Red Blood Cells 3 /100 WBC Differential Comment FINAL DIFF MANUAL Toxic Granulation 1+ Platelet Estimate HIGH Platelet Morphology Comment NORMAL Blood Urea Nitrogen 9 MG/DL Creatinine 0.73 MG/DL Random Glucose 103 MG/DL Albumin 2.3 GM/DL Calcium Level 8.5 MG/DL Phosphorus Level 2.0 MG/DL Magnesium Level 1.7 MG/DL Sodium Level 139 MEQ/L Potassium Level 3.1 MEQ/L Chloride Level 103 MEQ/L Carbon Dioxide Level 28.0 MEQ/L Anion Gap 8 MEQ/L Estimat Glomerular Filtration Rate 76 ML/MIN Administered Medications Medications (Trade) Dose Ordered Sig/Marin Route PRN Reason Start Time Stop Time Status Last Admin Dose Admin Sodium Chloride (NS Flush) 2 ml BID IV FLUSH 05/14/17 09:00 05/19/17 08:24 Ondansetron HCl (Zofran Inj) 4 mg Q6H PRN IVP NAUSEA OR VOMITING 05/13/17 23:15 05/16/17 08:32 Acetaminophen (Tylenol) 650 mg Q6H PRN PO FEVER/PAIN SCALE 1 TO 2 05/13/17 23:15 05/17/17 11:18 Acetaminophen/ Hydrocodone Bitart ([place] 5-325 Mg) 1 tab Q4H PRN PO PAIN SCALE 3 TO 5 05/13/17 23:15 05/18/17 17:03 Senna/Docusate Sodium (January-Colace) 1 tab BID PO 05/14/17 09:00 05/19/17 08:21 Escitalopram Oxalate (Lexapro) 10 mg DAILY PO 05/14/17 09:00 05/19/17 08:21 Epoetin Floyd (Epogen Inj) 20,000 units EVERY OTHER DAY SQ 05/14/17 13:15 05/18/17 12:00 Levothyroxine Sodium (Synthroid) 125 mcg DAILY@0600 PO 05/16/17 06:00 05/19/17 06:00 Quetiapine Fumarate (SEROquel) 25 mg HS PO 05/15/17 21:00 05/18/17 20:25 Pantoprazole Sodium (Protonix) 20 mg Q24H PO 05/16/17 21:00 05/18/17 20:25 Enalaprilat (Vasotec Inj) 2.5 mg Q6H PRN IV PUSH bp>160/90 05/18/17 00:15 05/18/17 09:10 Nifedipine (Procardia Xl) 30 mg DAILY PO 05/19/17 09:00 05/19/17 08:21 Furosemide (Lasix) 20 mg DAILY PO 05/18/17 15:30 05/19/17 08:21 Levofloxacin (Levaquin) 750 mg DAILY PO 05/19/17 09:00 05/19/17 08:21 Objective Remarks GENERAL: Frail elderly female upright in bed in nad. SKIN: Warm and dry. HEAD: Normocephalic. EYES: No injection or drainage. NECK: Supple, trachea midline. CARDIOVASCULAR: +S1/S2 RESPIRATORY: Breath sounds equal bilaterally. No accessory muscle use. GASTROINTESTINAL: Abdomen soft, non-tender, nondistended. EXTREMITIES: No cyanosis NEUROLOGICAL: aox3. normal speech. moving all extremities. Assessment/Plan Problem List: (1) Normocytic anemia ICD Codes: D64.9 - Anemia, unspecified Plan: --reported melanotic stool. --EGD showed esophagitis/gastritis --large hematoma left leg. --is a Baptist and does not want blood transfusion. --on Venofer infusion. --receives Procrit qod (2) Right leg DVT ICD Codes: I82.401 - Acute embolism and thrombosis of unspecified deep veins of right lower extremity Plan: --Due to anemia/bleeding --not a candidate for anticoagulation at this point --Monitor closely for recurrent clot. --repeat u/s shows no DVT Assessment 81y/o Baptist brought into to the emergency room with a drop in hemoglobin as well as elevated INR. Recent right lower extremity deep venous thrombosis. Hypertension. Hyperlipidemia. Coronary artery bypass graft surgery. Arthroscopic right knee surgery. Coronary stent placement. Bilateral tubal ligation. Plan 1. give extra dose Venofer 200mg today 2. monitor CBC 3. if being discharged today will give extra dose Procrit prior to d/c, otherwise will continue schedule of every other day. Attending Statement The exam, history, and the medical decision-making described in the above note were completed with the assistance of the mid-level provider. I reviewed and agree with the findings presented. I attest that I had a [id number] encounter with the patient on the same day, and personally performed and documented my assessment and findings in the medical record. Hgb stable. No evidence of active bleeding. Give venofer today. Continue Procrit. Lesa Singh May 19, 2017 11:12 Tyrone Lopez MD May 19, 2017 15:04
[2017-05-19 12:00] VITALS: BP 169/75; PULSE 82; RESP 22; TEMP 98.2; O2SAT 94
[2017-05-19] MEDS ORDERED: IRON SUCROSE INJ 200 MG in SODIUM CHLORIDE 0.9% INJ 100 ML IV ONE (12:00)
--- NOTE | 2017-05-19 12:36 | RADRPT ---
EXAM DATE/TIME: 05/19/2017 12:23 [facility] COMPARISON: CHEST SINGLE AP, May 18, 2017, 14:38. INDICATIONS : Pneumonia. MEDICAL HISTORY : Deep venous thrombosis. SURGICAL HISTORY : Tubal ligation. Open heart. ENCOUNTER: Subsequent ACUITY: 4 - 6 days PAIN SCORE: 0/10 LOCATION: Bilateral chest FINDINGS: The heart is at the upper limits of normal in size. The patient is post median sternotomy. The lungs demonstrate COPD changes. Mediastinal contours are within normal limits. There is minimal bibasilar f usion. The bony structures demonstrate degenerative changes but are otherwise intact. CONCLUSION: 1. COPD changes. Stable compared to previous dated 05/18/17. Luisito Arango MD on May 19, 2017 at 12:34 Board Certified Radiologist. This report was verified electronically.
--- NOTE | 2017-05-19 14:43 | HHI.PR ---
Subjective Remarks pt seen this morning. Sitting up in bed. Says she feels well. Denies any chest pain or shortness of breath. Objective Vital Signs Date Time Temp Pulse Resp B/P (MAP) Pulse Ox O2 Delivery O2 Flow Rate FiO2 05/19/17 12:00 98.2 82 22 169/75 (106) 94 05/19/17 08:20 97 2.00 05/19/17 08:00 98.1 76 20 175/74 (107) 97 05/19/17 04:00 98.3 70 18 181/78 (112) 92 05/19/17 00:00 97.3 79 18 153/68 (96) 93 05/18/17 21:26 21 05/18/17 20:33 96 2.00 05/18/17 20:00 98.7 93 18 141/82 (101) 93 05/18/17 19:00 16 05/18/17 15:50 97.8 78 20 202/90 (127) 96 I/O 05/18/17 05/18/17 05/18/17 05/19/17 05/19/17 05/19/17 07:00 15:00 23:00 07:00 15:00 23:00 Intake Total 477 ml 480 ml Balance 477 ml 480 ml Intake Oral 477 ml 480 ml # Voids 2 8 4 # Bowel Movements 2 Result Diagram: 05/19/17 0610 05/19/17 0618 Objective Remarks GENERAL: Sitting up in bed. Awake, alert.smiling. SKIN: Warm and dry. HEAD: Normocephalic. EYES: No scleral icterus. No injection or drainage. NECK: Supple, trachea midline. No JVD. CARDIOVASCULAR: Regular rate and rhythm without murmurs, gallops, or rubs. RESPIRATORY: Breath sounds equal bilaterally. No accessory muscle use. GASTROINTESTINAL: Abdomen soft, non-tender, nondistended. MUSCULOSKELETAL: No cyanosis, or edema. Patient does have ecchymosis of the left inner thigh without any broken skin. Improving slightly. BACK: Nontender without obvious deformity. No CVA tenderness. A/P Assessment and Plan 81-year-old female with history of dementia, provoked DVT on warfarin, Jehovah' s Witness, who presented with acute anemia, likely secondary to left hip hematoma. Prior to diagnosis of left hip hematoma, patient underwent colonoscopy. Hospitalization has been compensated by delirium which has resolved, now with leukocytosis. Pathology from colonoscopy somehow has returned with C. difficile colitis. On 05/18 patient was thought that possibly have left lower lobe pneumonia for which was started on Levaquin. Due to absence of pneumonia symptoms, suspect that leukocytosis is likely secondary to C. difficile. Started on metronidazole. C. difficile toxin PCR pending. Continue to monitor //Previously with suspected GI Bleed: On Coumadin for h/o DVT, INR elevated, Hgb trending down, 7.7 from outpatient labs earlier today, currently Hgb 6.8. On Protonix gtt, will continue. GI Consulted by ER physician, plan is for EGD/ Colonoscopy in am, prep to be done tonight. Pt does not want transfusion of blood products if needed. =05/14 Place consult for hematology. Appreciate assistance. Respiratory no ordered. Status post iv iron. Appreciate GI assistance. = Colonoscopy with possible ischemic colitis. Pathology pending. Appreciate GI assistance. //Possible C. difficile colitis. = 05/19. Pathology results reviewed with possible C. difficile colitis. With white blood cell count elevated at 18. We'll order C. difficile CR stool. Start on metronidazole. // Anemia: Secondary to acute blood loss. Hgb 6.8 on admission. S/p Iron IV in ER as pt declining transfusion. Monitor Hgb/Hct. Limit blood draws as possible =05/14 Place consult for hematology. Appreciate assistance. Respiratory no ordered. Status post iv iron. Appreciate GI assistance. = 05/19. Continues improving. Hemoglobin 8.0 // Chronic Anticoagulation: h/o DVT on Coumadin, supratherapeutic INR 4.57 05/12 and 3.9 on 05/11/17 per records. INR currently 1.9, s/p Vitamin K. Repeat INR in am. = 05/14 INR 1.3. Continue to Hold Coumadin for active bleeding. Hematology following. Appreciate assistance. //Leukocytosis worsening 18 today.. Likely secondary to a hematoma. Chest x- ray was small left basilar atelectasis. Possibly secondary to left lower lobe pneumonia on chest x-ray 05/19 versus C. difficile colitis. //Possible left lower lobe pneumonia. Chest x-ray 05/18 with left lower lobe infiltrate, leukocytosis. Start on Levaquin. // SEBASTIAN: Creatinine 2.01 on admission, previously 0.80 on 03/15/17. = 05/14. Creatinine 1.66, improved from yesterday. Continue IV fluids. Continue to monitor. // Jain: Pt confirms she is Jehova's Witness and does not want to receive any form of blood products. //Suspected dementia. reports dementia symptoms at baseline. //Soft tissue injury with ecchymosis of left thigh. No tenderness with hip joint. No broken skin. Continue to monitor. -CT with hematoma. Ultrasound negative for DVT. Appreciate hematology assistance. //Acute kidney injury. Resolved. Creatinine 0.8 from 2.0 on admission. //Hospital-induced delirium. -Appears to be resolved. Continue Seroquel. //Elevated CK. -Resolved. //Hypokalemia. Replaced again. cont monitor //Hypophosphatemia. Phosphorus 2.0. Improved after replacement. Replaced. //Accelerated Hypertension. Systolic blood pressure to 200 and 05/18. Blood pressure improved in the 160s after discontinuation of fludrocortisone. Continue home blood pressure meds. // DNR: Code Status confirmed, pt DNR. // DVT Prophylaxis: Pharmacologic contraindication secondary to anemia, hematoma. Discharge Planning Continue to monitor hemoglobin. appears to be stabilizing. -Follow-up C. difficile PCR. -Possible discharge to SNF within next few days Reid Fernandez MD May 19, 2017 14:43
[2017-05-19] MEDS: metroNIDAZOLE 500 MG TAB PO SCH ×2 (15:53→20:05)
[2017-05-19 16:00] VITALS: BP 147/74; PULSE 84; RESP 16; TEMP 98.4; O2SAT 94
[2017-05-19] MEDS: ONDANSETRON HCL 4 MG/2 ML VIAL IVP PRN (17:11)
[2017-05-19] MEDS: QUEtiapine FUMARATE 25 MG TAB PO SCH (20:05)
[2017-05-19] MEDS: PANTOPRAZOLE SOD 20 MG DELAYED RELEASE TAB PO SCH (20:05)
[2017-05-19 21:09] VITALS: BP 169/72; PULSE 82; RESP 16; TEMP 98.8; O2SAT 91
[2017-05-20] VITALS: BP 139/62; PULSE 75; RESP 20; TEMP 96.8; O2SAT 95
[2017-05-20] MEDS: metroNIDAZOLE 500 MG TAB PO SCH ×4 (03:00→20:24)
[2017-05-20 04:00] VITALS: BP 134/65; PULSE 70; RESP 20; TEMP 97.3; O2SAT 95
[2017-05-20] MEDS: LEVOTHYROXINE SODIUM 125 MCG TAB PO SCH (05:21)
[2017-05-20 07:10] LABS: AUTOMATED NEUTROPHIL # 12.4 TH/MM3 (1.8-7.7); BASOPHIL % 0.1 % (0.0-2.0); EOSINOPHIL # 0.3 TH/MM3 (0-0.4); EOSINOPHIL % 1.8 % (0.0-4.0); HEMATOCRIT 23.5 % (35.0-46.0); LYMPH % 16.5 % (9.0-44.0); LYMPHOCYTE # 2.8 TH/MM3 (1.0-4.8); MEAN CELL VOLUME 90.4 FL (80.0-100.0); MEAN CORPUSCULAR HGB CONC 33.2 % (32.0-36.0); MONO % 7.5 % (0.0-8.0); NEUT % 74.1 % (16.0-70.0); PLATELET COUNT 504 TH/MM3 (150-450); RED CELL DISTRIBUTION WIDTH 15.5 % (11.6-17.2); WHITE BLOOD COUNT 16.8 TH/MM3 (4.0-11.0)
[2017-05-20 07:14] LABS: HEMO FLAGS AUTO DIFF
[2017-05-20 07:20] LABS: BICARBONATE 29.7 MEQ/L (21.0-32.0); MAGNESIUM 1.7 MG/DL (1.5-2.5); POTASSIUM 3.2 MEQ/L (3.5-5.1)
[2017-05-20 07:30] VITALS: BP 186/77; PULSE 70; RESP 20; TEMP 99.1; O2SAT 97
[2017-05-20] MEDS: NIFEdipine 30 MG SUSTAINED RELEASE TAB PO SCH (08:34)
[2017-05-20] MEDS: ESCITALOPRAM OXALATE 10 MG TAB PO SCH (08:34)
[2017-05-20] MEDS: DOCUSATE SODIUM 50 MG/SENNA 8.6 MG TAB PO SCH (08:34)
[2017-05-20] MEDS: SODIUM CHLORIDE 0.9% FLUSH 10 ML FLUSH IV FLUSH SCH ×2 (08:35→20:24)
[2017-05-20] MEDS: FUROSEMIDE 20 MG TAB PO SCH (08:35)
[2017-05-20] MEDS: LEVOFLOXACIN 750 MG TAB PO SCH (08:35)
[2017-05-20 11:17] LABS: BANDS 12 % (0-6); CORRECTED NUCLEATED RBC 3 /100 WBC (0-0); METAMYELOCYTES 4 % (0-1); MYELOCYTES 3 % (0-0); NEUTROPHIL # MANUAL DIFF 14.3 TH/MM3 (1.8-7.7); POLYS (SEG NEUTROPHILS) 66 % (16-70); WBC DIFF SAMPLE 100
[2017-05-20 11:18] LABS: OVALOCYTES 1+ (NORMAL); PLATELET ESTIMATE SMEAR HIGH (NORMAL); PLATELET MORPHOLOGY NORMAL (NORMAL); POLYCHROMASIA 2.9 % (0.0-1.9); SCAN/DIFF FINAL DIFF MANUAL
[2017-05-20 11:45] VITALS: BP 110/55; PULSE 76; RESP 20; TEMP 96.8; O2SAT 95
--- NOTE | 2017-05-20 12:34 | HHI.PR ---
Subjective Remarks Follow-up lower extremity DVT/acute pseudomembranous colitis/GI bleed 05/20/17-patient seen and examined, denies any GI bleed. No acute event overnight. Hemoglobin dropping Objective Vitals Vital Signs Date Time Temp Pulse Resp B/P (MAP) Pulse Ox O2 Delivery O2 Flow Rate FiO2 05/20/17 09:40 Room Air 2.00 21 Nasal Cannula 05/20/17 07:30 99.1 70 20 186/77 (113) 97 05/20/17 04:00 97.3 70 20 134/65 (88) 95 05/20/17 00:00 96.8 75 20 139/62 (87) 95 05/19/17 21:09 98.8 82 16 169/72 (104) 91 05/19/17 19:00 Room Air 2.00 21 05/19/17 16:00 98.4 84 16 147/74 (98) 94 I/O 05/19/17 05/19/17 05/19/17 05/20/17 05/20/17 05/20/17 07:00 15:00 23:00 07:00 15:00 23:00 Intake Total 480 ml 474 ml 0 ml Balance 480 ml 474 ml 0 ml Intake Oral 480 ml 474 ml 0 ml # Voids 4 4 2 # Bowel Movements 2 0 Result Diagram: 05/20/17 0609 05/20/17 0609 Imaging Last Impressions Chest X-Ray 05/19/17 0000 Signed Impressions: Service Date/Time: Friday, May 19, 2017 12:23 - CONCLUSION: 1. COPD changes. Stable compared to previous dated 05/18/17. Luisito Arango MD Lower Extremity Ultrasound 05/16/17 0000 Signed Impressions: Service Date/Time: Tuesday, May 16, 2017 10:01 - CONCLUSION: No DVT in either leg. Juwan Gonzalez MD Pelvis CT 05/15/17 0000 Signed Impressions: Service Date/Time: Monday, May 15, 2017 15:24 - CONCLUSION: Hematoma as described above beginning in the psoas on the left extending down the iliopsoas into the femur. Xavi Arango MD FACR Lower Extremity CT 05/15/17 0000 Signed Impressions: Service Date/Time: Monday, May 15, 2017 15:24 - CONCLUSION: Iliopsoas hematoma as described above. Xavi Arango MD FACR Objective Remarks GENERAL: NAD SKIN: Warm and dry. HEAD: Normocephalic. EYES: No scleral icterus. No injection or drainage. NECK: Supple, trachea midline. No JVD or lymphadenopathy. CARDIOVASCULAR: Regular rate and rhythm without murmurs, gallops, or rubs. RESPIRATORY: Breath sounds equal bilaterally. No accessory muscle use. GASTROINTESTINAL: Abdomen soft, non-tender, nondistended. MUSCULOSKELETAL: No cyanosis, or edema. BACK: Nontender without obvious deformity. No CVA tenderness. Procedures none A/P Problem List: (1) GI bleed ICD Code: K92.2 - Gastrointestinal hemorrhage, unspecified Status: Acute (2) Anemia ICD Code: D64.9 - Anemia, unspecified Status: Acute (3) Chronic anticoagulation ICD Code: Z79.01 - terminologist (current) use of anticoagulants (4) SEBASTIAN (acute kidney injury) ICD Code: N17.9 - Acute kidney failure, unspecified (5) Patient is Cheondoism ICD Code: Z78.9 - Other specified health status (6) DNR (do not resuscitate) ICD Code: Z66 - Do not resuscitate Assessment and Plan 81-year-old female with Previously with suspected GI Bleed EGD/Colonoscopy Colonoscopy with mild acute pseudomembranous colitis-continue with Flagyl Does not want any blood product transfusion secondary to episcopalian belief Questionable C. difficile C. difficile PCR pending Currently on Flagyl secondary to pathology finding of mild acute pseudomembranous colitis Anemia: Secondary to acute blood loss. Appreciate input from hematology and patient is Status post iv iron. Chronic Anticoagulation: h/o DVT on Coumadin, supra therapeutic s/p Vitamin K. Continue to Hold Coumadin for active bleeding. Hematology following. Appreciate assistance. Leukocytosis Likely secondary to a hematoma. Chest x-ray was small left basilar atelectasis. Possibly secondary to left lower lobe pneumonia on chest x-ray versus C. difficile colitis. Possible left lower lobe pneumonia. Continue with Levaquin. SEBASTIAN: Resolved with IV fluid hydration Cheondoism: Pt confirms she is Jehova's Witness and does not want to receive any form of blood products. Suspected dementia. reports dementia symptoms at baseline. Soft tissue injury with ecchymosis of left thigh. No tenderness with hip joint. No broken skin. Continue to monitor. -CT with hematoma. Ultrasound negative for DVT. Appreciate hematology assistance. Hospital-induced delirium. Resolved. Continue Seroquel. Elevated CK. Resolved. Hypokalemia. Replaced again. cont monitor Accelerated Hypertension. Continue home blood pressure meds. DVT Prophylaxis: Pharmacologic contraindication secondary to anemia, hematoma. Juwan Sharpe MD May 20, 2017 12:34
[2017-05-20] MEDS ORDERED: POTASSIUM CHLORIDE 10 MEQ CONTROLLED RELEASE TAB PO ONE (12:45)
[2017-05-20 15:00] VITALS: BP 172/74; PULSE 77; RESP 20; TEMP 96.8; O2SAT 93
[2017-05-20] MEDS: EPOETIN ALFA 20,000 UNITS/ML VIAL SQ SCH (17:16)
[2017-05-20] MEDS: ENALAPRILAT 2.5 MG/2 ML VIAL IV PUSH PRN (17:22)
[2017-05-20 18:18] LABS: BACTERIA, URINE MOD /hpf; BLOOD, URINE SMALL (NEG); COMMENT (UR) CATH-CULTURE IND; CULTURE IF INDICATED CATH CULTURE IND; GLUCOSE,URINE NEG (NEG); KETONE, URINE NEG (NEG); MUCUS URINE FEW /lpf (OCC); NITRITE,URINE NEG (NEG); PH, URINE 6.5 (5.0-8.5); URINE COLOR YELLOW (YELLW/STRAW)
[2017-05-20 20:00] VITALS: BP 166/73; PULSE 66; RESP 20; TEMP 97.6; O2SAT 93
[2017-05-20] MEDS: PANTOPRAZOLE SOD 20 MG DELAYED RELEASE TAB PO SCH (20:24)
[2017-05-20] MEDS: QUEtiapine FUMARATE 25 MG TAB PO SCH (20:24)
[2017-05-21] VITALS (7 sets, daily range): BP systolic 109–197; BP diastolic 59–84; PULSE 66–77; RESP 18–20; TEMP 96–98.4; O2SAT 93–100
[2017-05-21] MEDS: metroNIDAZOLE 500 MG TAB PO SCH ×4 (03:47→20:04)
[2017-05-21] MEDS: ENALAPRILAT 2.5 MG/2 ML VIAL IV PUSH PRN (03:47)
[2017-05-21] MEDS: LEVOTHYROXINE SODIUM 125 MCG TAB PO SCH (06:05)
[2017-05-21] MEDS: NIFEdipine 30 MG SUSTAINED RELEASE TAB PO SCH (08:47)
[2017-05-21] MEDS: LEVOFLOXACIN 750 MG TAB PO SCH (08:47)
[2017-05-21] MEDS: ESCITALOPRAM OXALATE 10 MG TAB PO SCH (08:47)
[2017-05-21] MEDS: EPOETIN ALFA 20,000 UNITS/ML VIAL SQ SCH (08:48)
[2017-05-21] MEDS: FUROSEMIDE 20 MG TAB PO SCH (08:48)
[2017-05-21] MEDS: SODIUM CHLORIDE 0.9% FLUSH 10 ML FLUSH IV FLUSH SCH ×2 (08:49→20:05)
--- NOTE | 2017-05-21 11:02 | HHI.PR ---
Subjective Remarks Follow-up lower extremity DVT/acute pseudomembranous colitis/GI bleed 05/20/17-patient seen and examined, denies any GI bleed. No acute event overnight. Hemoglobin dropping 05/21/17-patient seen and examined, some confusion per nurse report. UA positive. Currently afebrile. by the bedside. Patient states she would like to be discharged home. Objective Vitals Vital Signs Date Time Temp Pulse Resp B/P (MAP) Pulse Ox O2 Delivery O2 Flow Rate FiO2 05/21/17 10:10 Room Air 2.00 21 Nasal Cannula 05/21/17 07:30 98.4 72 20 197/78 (117) 93 05/21/17 06:07 70 150/65 (93) 05/21/17 04:00 97.8 66 18 178/80 (112) 93 05/21/17 00:00 97.8 71 18 121/59 (79) 97 05/20/17 20:25 Room Air 05/20/17 20:00 97.6 66 20 166/73 (104) 93 05/20/17 15:00 96.8 77 20 172/74 (106) 93 05/20/17 11:45 96.8 76 20 110/55 (73) 95 I/O 05/20/17 05/20/17 05/20/17 05/21/17 05/21/17 05/21/17 07:00 15:00 23:00 07:00 15:00 23:00 Intake Total 0 ml 437 ml 240 ml Balance 0 ml 437 ml 240 ml Intake Oral 0 ml 437 ml 240 ml # Voids 2 4 3 # Bowel Movements 0 1 Result Diagram: 05/20/1709 05/20/17 0609 Objective Remarks GENERAL: NAD SKIN: Warm and dry. HEAD: Normocephalic. EYES: No scleral icterus. No injection or drainage. NECK: Supple, trachea midline. No JVD or lymphadenopathy. CARDIOVASCULAR: Regular rate and rhythm without murmurs, gallops, or rubs. RESPIRATORY: Breath sounds equal bilaterally. No accessory muscle use. GASTROINTESTINAL: Abdomen soft, non-tender, nondistended. MUSCULOSKELETAL: No cyanosis, or edema. BACK: Nontender without obvious deformity. No CVA tenderness. 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 difficile C. difficile PCR pending Currently on Flagyl secondary to pathology finding of mild acute pseudomembranous colitis Anemia: Secondary to acute blood loss. Appreciate input from hematology and patient is Status post iv iron. Chronic Anticoagulation: h/o DVT on Coumadin, supra therapeutic s/p Vitamin K. Continue to Hold Coumadin for active bleeding. Hematology following. Appreciate assistance. Leukocytosis Likely secondary to a hematoma. Chest x-ray was small left basilar atelectasis. Possibly secondary to left lower lobe pneumonia on chest x-ray versus C. difficile colitis. Possible left lower lobe pneumonia. Currently on Levaquin, however due to UTI will discontinue Levaquin and start patient on Rocephin and add azithromycin Urinary tract infection Start patient on Rocephin day 05/21/17 pending urine culture SEBASTIAN: Resolved with IV fluid hydration Amish: Pt confirms she is Jehova's Witness and does not want to receive any form of blood products. Suspected dementia. reports dementia symptoms at baseline. Soft tissue injury with ecchymosis of left thigh. No tenderness with hip joint. No broken skin. Continue to monitor. -CT with hematoma. Ultrasound negative for DVT. Appreciate hematology assistance. Hospital-induced delirium. Resolved. Continue Seroquel. Elevated CK. Resolved. Hypokalemia. Replaced again. cont monitor Accelerated Hypertension. Continue home blood pressure meds. DVT Prophylaxis: Pharmacologic contraindication secondary to anemia, hematoma. Juwan Sharpe MD May 21, 2017 11:02
[2017-05-21] MEDS ORDERED: NIFEdipine 30 MG SUSTAINED RELEASE TAB PO ONE (11:45)
[2017-05-21] MEDS: cefTRIAXone INJ 1,000 MG in SODIUM CHLORIDE 0.9% INJ 100 ML IV SCH (13:51)
[2017-05-21] MEDS: NIFEdipine 60 MG SUSTAINED RELEASE TAB PO SCH (20:03)
[2017-05-21] MEDS: QUEtiapine FUMARATE 25 MG TAB PO SCH (20:03)
[2017-05-21] MEDS: LACTOBACILLUS ACIDOPHILUS TAB PO SCH (20:03)
[2017-05-21] MEDS: PANTOPRAZOLE SOD 20 MG DELAYED RELEASE TAB PO SCH (20:04)
[2017-05-21] MEDS: ONDANSETRON HCL 4 MG/2 ML VIAL IVP PRN (20:06)
[2017-05-22 00:15] VITALS: BP 123/60; PULSE 83; RESP 17; TEMP 100.5; O2SAT 92
[2017-05-22 04:20] VITALS: BP 110/54; PULSE 70; RESP 17; TEMP 97.5; O2SAT 92
[2017-05-22] MEDS: metroNIDAZOLE 500 MG TAB PO SCH ×4 (04:51→20:04)
[2017-05-22] MEDS: LEVOTHYROXINE SODIUM 125 MCG TAB PO SCH (04:51)
[2017-05-22 08:18] VITALS: BP 117/63; PULSE 73; RESP 16; TEMP 97.6; O2SAT 94
[2017-05-22] MEDS: AZITHROMYCIN 250 MG TAB PO SCH (08:19)
[2017-05-22] MEDS: FUROSEMIDE 20 MG TAB PO SCH (08:19)
[2017-05-22] MEDS: NIFEdipine 60 MG SUSTAINED RELEASE TAB PO SCH ×2 (08:19→20:04)
[2017-05-22] MEDS: LACTOBACILLUS ACIDOPHILUS TAB PO SCH ×2 (08:19→20:04)
[2017-05-22] MEDS: ESCITALOPRAM OXALATE 10 MG TAB PO SCH (08:20)
[2017-05-22] MEDS: SODIUM CHLORIDE 0.9% FLUSH 10 ML FLUSH IV FLUSH SCH ×2 (08:22→20:05)
[2017-05-22] MEDS: cefTRIAXone INJ 1,000 MG in SODIUM CHLORIDE 0.9% INJ 100 ML IV SCH (10:44)
[2017-05-22] MEDS: EPOETIN ALFA 20,000 UNITS/ML VIAL SQ SCH (10:46)
--- NOTE | 2017-05-22 10:56 | HHI.HCPN ---
Reason for visit a. To assist with evaluation and management of symptoms including: confusion , anxiety, malnutrition b. To assist medical decision maker(s) with: better understanding of current medical conditions; weighing benefits/burdens of medical treatment options; making medical treatment decisions. . Subjective/Interval History Patient examined in room, at bedside, patient is awake and alert, oriented x 2-3. Patient states she "wants to get better and go home". She endorses she has had some confusion but stated "hey I am 81". Patient denies any pain, nausea or vomiting. States she has been having regular bowel movements , denies melena. Palliative care consulted to assist with goals of care to provide support/ guidance regarding medical treatment benefit/burden medical treatment options. . Advance Directives Living Will: Copy in medical record Health Care Surrogate: Copy in medical record Advance Directive Specifics Date completed: 04/08/2009. Health Care Surrogate(s): Mohan Gomez () Lee Aldana (alternate HCS). . Documented care wishes: Standard verbiage in living will. Patient documented she does not desire life sustaining measures if she has a terminal condition or is in a persistent vegetative state. . Objective Vital Signs Date Time Temp Pulse Resp B/P (MAP) Pulse Ox O2 Delivery O2 Flow Rate FiO2 05/22/17 08:32 Room Air 05/22/17 08:18 97.6 73 16 117/63 (81) 94 05/22/17 04:20 97.5 70 17 110/54 (72) 92 05/22/17 00:15 100.5 83 17 123/60 (81) 92 05/21/17 20:10 Room Air 05/21/17 20:00 97.5 75 18 173/69 (103) 94 05/21/17 15:30 98.3 71 20 192/83 (119) 94 05/21/17 11:30 96.0 77 20 109/62 (78) 96 Intake & Output 05/22/17 05/22/17 06:59 18:59 # Voids 1 Physical Exam CONSTITUTIONAL/GENERAL: This is an elderly female patient, awake and alert, pleasant, in no apparent distress. TUBES/LINES/DRAINS: PIV x 1 SKIN: No jaundice, rashes, or lesions. Ecchymoses on upper extremities. No wounds seen anteriorly. Skin temperature appropriate. Not diaphoretic. EYES: Pupils equal and round and reactive. No scleral icterus. No injection or drainage. Fundi not examined. ENT: Hearing grossly normal. Nose without bleeding or purulent drainage. CARDIOVASCULAR: Regular rate and rhythm without murmurs, gallops, or rubs. No JVD. Peripheral pulses symmetric. RESPIRATORY/CHEST: Symmetric, unlabored respirations. Clear, diminished breath sounds, equal bilaterally. GASTROINTESTINAL: Abdomen soft, non-tender, nondistended. No guarding. Bowel sounds present. GENITOURINARY: Without palpable bladder distension. MUSCULOSKELETAL: Extremities without clubbing, cyanosis, or edema. No mottling or clubbing. NEUROLOGICAL: Awake and alert. Oriented x 2-3. Follows commands. PSYCHIATRIC: No obvious anxiety or depression. . Diagnostic Tests Laboratory Laboratory Tests Test 05/20/17 06:09 05/20/17 11:30 05/20/17 18:00 White Blood Count 16.8 TH/MM3 (4.0-11.0) Red Blood Count 2.60 MIL/MM3 (4.00-5.30) Hemoglobin 7.8 GM/DL (11.6-15.3) Hematocrit 23.5 % (35.0-46.0) Mean Corpuscular Volume 90.4 FL (80.0-100.0) Mean Corpuscular Hemoglobin 30.0 PG (27.0-34.0) Mean Corpuscular Hemoglobin Concent 33.2 % (32.0-36.0) Red Cell Distribution Width 15.5 % (11.6-17.2) Platelet Count 504 TH/MM3 (150-450) Mean Platelet Volume 6.7 FL (7.0-11.0) Neutrophils (%) (Auto) 74.1 % (16.0-70.0) Lymphocytes (%) (Auto) 16.5 % (9.0-44.0) Monocytes (%) (Auto) 7.5 % (0.0-8.0) Eosinophils (%) (Auto) 1.8 % (0.0-4.0) Basophils (%) (Auto) 0.1 % (0.0-2.0) Neutrophils # (Auto) 12.4 TH/MM3 (1.8-7.7) Lymphocytes # (Auto) 2.8 TH/MM3 (1.0-4.8) Monocytes # (Auto) 1.3 TH/MM3 (0-0.9) Eosinophils # (Auto) 0.3 TH/MM3 (0-0.4) Basophils # (Auto) 0.0 TH/MM3 (0-0.2) CBC Comment AUTO DIFF Differential Total Cells Counted 100 Neutrophils % (Manual) 66 % (16-70) Band Neutrophils % 12 % (0-6) Lymphocytes % 9 % (9-44) Monocytes % 6 % (0-8) Neutrophils # (Manual) 14.3 TH/MM3 (1.8-7.7) Metamyelocytes 4 % (0-1) Myelocytes 3 % (0-0) Nucleated Red Blood Cells 3 /100 WBC (0-0) Differential Comment FINAL DIFF MANUAL Platelet Estimate HIGH (NORMAL) Platelet Morphology Comment NORMAL (NORMAL) Polychromasia 2.9 % (0.0-1.9) Ovalocytes 1+ (NORMAL) Blood Urea Nitrogen 11 MG/DL (7-18) Creatinine 0.83 MG/DL (0.50-1.00) Random Glucose 95 MG/DL (74-106) Albumin 2.4 GM/DL (3.4-5.0) Calcium Level 8.2 MG/DL (8.5-10.1) Phosphorus Level 2.3 MG/DL (2.5-4.9) Magnesium Level 1.7 MG/DL (1.5-2.5) Sodium Level 140 MEQ/L (136-145) Potassium Level 3.2 MEQ/L (3.5-5.1) Chloride Level 103 MEQ/L (98-107) Carbon Dioxide Level 29.7 MEQ/L (21.0-32.0) Anion Gap 7 MEQ/L (5-15) Estimat Glomerular Filtration Rate 66 ML/MIN (>89) Urine Color YELLOW (YELLW/STRAW) Urine Turbidity CLOUDY (CLEAR) Urine pH 6.5 (5.0-8.5) Urine Specific Many 1.018 (1.002-1.035) Urine Protein TRACE mg/dL (NEG-TRACE) Urine Glucose (UA) NEG mg/dL (NEG) Urine Ketones NEG mg/dL (NEG) Urine Occult Blood SMALL (NEG) Urine Nitrite NEG (NEG) Urine Bilirubin NEG (NEG) Urine Urobilinogen 4.0 MG/DL (LESS THAN Urine Leukocyte Esterase LARGE (NEG) Urine RBC 65 /hpf (0-3) Urine WBC /hpf (0-5) Urine WBC Clumps MANY (NONE) Urine Bacteria MOD /hpf (NONE) Urine Mucus FEW /lpf (OCC) Microscopic Urinalysis Comment CATH-CULTURE IND Result Diagram: 05/20/17 0609 05/20/17 0609 Microbiology Microbiology Date/Time Source Procedure Growth Status 05/20/17 18:00 Urine Catheterized Urine Urine Culture - Final Escherichia Coli Complete Procedures 05/14/17: EGD/Colonoscopy. . 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 Her son is unfortunately and she is no longer in contact with her daughter. She has currently been to her second for over 40 years. They have lived in [place] for the past 19 years and were snow birds prior to this. . Spiritual: Buddhist. Legal: None known. Ethical issues impacting care: None known. Important Contacts Gabriele Salcido (): [phone]. . 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 Now suffering from hospital induced delirium and remains anemic. Due to her advanced age and multiple comorbidities she is at an ongoing risk for further set backs and complications. Code Status: No Code Plan * Legal decision maker: Patient designated her Mohan Gomez as her HCS. * CODE STATUS: DNR * GOALS: Aggressive short of resuscitation. * SYMPTOM MANAGEMENT: * --Malnutrition: Patient is at an ongoing risk for malnutrition secondary to clinical condition, bed bound status, advanced age. 05/20 Albumin:2.4. Patient currently on heart healthy diet, receiving ensure with meals. No recommendations at this time. * --Confusion: Patient awake and alert today. Mild forgetfulness but confusion has greatly improved. Positive UTI with E. Coli on 05/20, azithromycin 500mg daily started on 05/22/17.. Seroquel 25mg HS started 05/15/17. Recommend ongoing reorientation. * --Anxiety: Improved. Lexapro 10mg daily ordered. No recommendations at this time. * Palliative care will continue to follow during hospital course as condition evolves, to assist patient/family/decision-maker with understanding of medical conditions, weighing benefit/burdens of treatment options, for clarification of goals of treatment. Additionally will assist with symptoms of palliative concern. * . Oumou Garcia May 22, 2017 10:56
--- NOTE | 2017-05-22 11:05 | HHI.PR ---
Subjective Remarks Follow-up lower extremity DVT/acute pseudomembranous colitis/GI bleed 05/20/17-patient seen and examined, denies any GI bleed. No acute event overnight. Hemoglobin dropping 05/21/17-patient seen and examined, some confusion per nurse report. UA positive. Currently afebrile. by the bedside. Patient states she would like to be discharged home. 05/22/17-patient seen and examined, Tmax 100.5 at midnight otherwise currently afebrile. Per patient is much more alert and oriented. She had one episode of loose stool yesterday. Objective Vitals Vital Signs Date Time Temp Pulse Resp B/P (MAP) Pulse Ox O2 Delivery O2 Flow Rate FiO2 05/22/17 08:32 Room Air 05/22/17 08:18 97.6 73 16 117/63 (81) 94 05/22/17 04:20 97.5 70 17 110/54 (72) 92 05/22/17 00:15 100.5 83 17 123/60 (81) 92 05/21/17 20:10 Room Air 05/21/17 20:00 97.5 75 18 173/69 (103) 94 05/21/17 15:30 98.3 71 20 192/83 (119) 94 05/21/17 11:30 96.0 77 20 109/62 (78) 96 I/O 05/21/17 05/21/17 05/21/17 05/22/17 05/22/17 05/22/17 07:00 15:00 23:00 07:00 15:00 23:00 Intake Total 240 ml 417 ml Balance 240 ml 417 ml Intake Oral 240 ml 417 ml # Voids 3 3 1 # Bowel Movements 1 0 Result Diagram: 05/20/17 0609 05/20/17 0609 Objective Remarks GENERAL: NAD SKIN: Warm and dry. HEAD: Normocephalic. EYES: No scleral icterus. No injection or drainage. NECK: Supple, trachea midline. No JVD or lymphadenopathy. CARDIOVASCULAR: Regular rate and rhythm without murmurs, gallops, or rubs. RESPIRATORY: Breath sounds equal bilaterally. No accessory muscle use. GASTROINTESTINAL: Abdomen soft, non-tender, nondistended. MUSCULOSKELETAL: No cyanosis, or edema. BACK: Nontender without obvious deformity. No CVA tenderness. Procedures none A/P Problem List: (1) GI bleed ICD Code: K92.2 - Gastrointestinal hemorrhage, unspecified Status: Acute (2) Anemia ICD Code: D64.9 - Anemia, unspecified Status: Acute (3) Chronic anticoagulation ICD Code: Z79.01 - [facility] (current) use of anticoagulants (4) SEBASTIAN (acute kidney injury) ICD Code: N17.9 - Acute kidney failure, unspecified (5) Patient is [place] ICD Code: Z78.9 - Other specified health status (6) DNR (do not resuscitate) ICD Code: Z66 - Do not resuscitate (7) Urinary tract infection ICD Code: N39.0 - Urinary tract infection, site not specified Assessment and Plan 81-year-old female with Previously with suspected GI Bleed EGD/Colonoscopy Colonoscopy with mild acute pseudomembranous colitis-continue with Flagyl Does not want any blood product transfusion secondary to restoration belief Questionable C. difficile C. difficile PCR pending Currently on Flagyl secondary to pathology finding of mild acute pseudomembranous colitis Anemia: Secondary to acute blood loss. Appreciate input from hematology and patient is Status post iv iron. Chronic Anticoagulation: h/o DVT on Coumadin, supra therapeutic s/p Vitamin K. Continue to Hold Coumadin for active bleeding. Hematology following. Appreciate assistance. Leukocytosis Likely secondary to a hematoma. Chest x-ray was small left basilar atelectasis. Possibly secondary to left lower lobe pneumonia on chest x-ray versus C. difficile colitis. Possible left lower lobe pneumonia. Currently on Rocephin and azithromycin Escherichia coli Urinary tract infection Currently on Rocephin however will switch to by mouth Cipro 05/23/17 as urine culture positive for Escherichia coli SEBASTIAN: Resolved with IV fluid hydration [place]: Pt confirms she is Jehova's Witness and does not want to receive any form of blood products. Suspected dementia. reports dementia symptoms at baseline. Soft tissue injury with ecchymosis of left thigh. No tenderness with hip joint. No broken skin. Continue to monitor. -CT with hematoma. Ultrasound negative for DVT. Appreciate hematology assistance. Hospital-induced delirium. Resolved. Continue Seroquel. Elevated CK. Resolved. Hypokalemia. Replaced again. cont monitor Accelerated Hypertension. Continue home blood pressure meds. DVT Prophylaxis: Pharmacologic contraindication secondary to anemia, hematoma. Juwan Sharpe MD May 22, 2017 11:05
[2017-05-22 12:00] VITALS: BP 143/61; PULSE 77; RESP 14; TEMP 97.1; O2SAT 96
--- NOTE | 2017-05-22 12:58 | PD.ONC.PN ---
Subjective Subjective Remarks Tmax 100.5 overnight. Patient resting in bed in nad. No complaints. Objective Data Date Time Temp Pulse Resp B/P (MAP) Pulse Ox O2 Delivery O2 Flow Rate FiO2 05/22/17 12:00 97.1 77 14 143/61 (88) 96 05/22/17 08:32 Room Air 05/22/17 08:18 97.6 73 16 117/63 (81) 94 05/22/17 04:20 97.5 70 17 110/54 (72) 92 05/22/17 00:15 100.5 83 17 123/60 (81) 92 05/21/17 20:10 Room Air 05/21/17 20:00 97.5 75 18 173/69 (103) 94 05/21/17 15:30 98.3 71 20 192/83 (119) 94 Result Diagram: 05/20/17 0609 05/20/17 0609 Culture Results Microbiology Date/Time Source Procedure Growth Status 05/20/17 18:00 Urine Catheterized Urine Urine Culture - Final Escherichia Coli Complete Administered Medications Medications (Trade) Dose Ordered Sig/Marin Route PRN Reason Start Time Stop Time Status Last Admin Dose Admin Sodium Chloride (NS Flush) 2 ml BID IV FLUSH 05/14/17 09:00 05/22/17 08:22 Ondansetron HCl (Zofran Inj) 4 mg Q6H PRN IVP NAUSEA OR VOMITING 05/13/17 23:15 05/21/17 20:06 Acetaminophen (Tylenol) 650 mg Q6H PRN PO FEVER/PAIN SCALE 1 TO 2 05/13/17 23:15 05/17/17 11:18 Acetaminophen/ Hydrocodone Bitart ([place] 5-325 Mg) 1 tab Q4H PRN PO PAIN SCALE 3 TO 5 05/13/17 23:15 05/18/17 17:03 Escitalopram Oxalate (Lexapro) 10 mg DAILY PO 05/14/17 09:00 05/22/17 08:20 Epoetin Floyd (Epogen Inj) 20,000 units EVERY OTHER DAY SQ 05/14/17 13:15 05/22/17 10:46 Levothyroxine Sodium (Synthroid) 125 mcg DAILY@0600 PO 05/16/17 06:00 05/22/17 04:51 Quetiapine Fumarate (SEROquel) 25 mg HS PO 05/15/17 21:00 05/21/17 20:03 Pantoprazole Sodium (Protonix) 20 mg Q24H PO 05/16/17 21:00 05/21/17 20:04 Enalaprilat (Vasotec Inj) 2.5 mg Q6H PRN IV PUSH bp>160/90 05/18/17 00:15 05/21/17 03:47 Furosemide (Lasix) 20 mg DAILY PO 05/18/17 15:30 05/22/17 08:19 Metronidazole (Flagyl) 500 mg Q6H PO 05/19/17 15:00 05/22/17 08:19 Ceftriaxone Sodium 1000 mg/ Sodium Chloride 100 ml @ 200 mls/hr Q24H IV 05/21/17 11:00 05/22/17 13:00 05/22/17 10:44 Azithromycin (Zithromax) 500 mg DAILY PO 05/22/17 09:00 05/22/17 08:19 Lactobacillus Acidophilus (Lactinex) 1 tab Q12HR PO 05/21/17 21:00 05/22/17 08:19 Nifedipine (Procardia Xl) 60 mg Q12HR PO 05/21/17 21:00 05/22/17 08:19 Objective Remarks GENERAL: Elderly female sitting up in bed in [facility]. SKIN: Warm and dry. HEAD: Normocephalic. EYES: No injection or drainage. NECK: Supple, trachea midline. CARDIOVASCULAR: +S1/S2 RESPIRATORY: Breath sounds equal bilaterally. No accessory muscle use. GASTROINTESTINAL: Abdomen soft, non-tender, nondistended. EXTREMITIES: No cyanosis NEUROLOGICAL: awake and alert. normal speech. Assessment/Plan Problem List: (1) Normocytic anemia ICD Codes: D64.9 - Anemia, unspecified Plan: --reported melanotic stool. --EGD showed esophagitis/gastritis --large hematoma left leg. 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 --on Venofer infusion. --receives Procrit qod (2) Right leg DVT ICD Codes: I82.401 - Acute embolism and thrombosis of unspecified deep veins of right lower extremity Plan: --Due to anemia/bleeding --not a candidate for anticoagulation at this point --Monitor closely for recurrent clot. 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 Recent right lower extremity deep venous thrombosis. Hypertension. Hyperlipidemia. Coronary artery bypass graft surgery. Arthroscopic right knee surgery. Coronary stent placement. Bilateral tubal ligation. Plan 1. give Procrit today 2. monitor CBC Attending Statement The exam, history, and the medical decision-making described in the above note were completed with the assistance of the mid-level provider. I reviewed and agree with the findings presented. I attest that I had a [id number] encounter with the patient on the same day, and personally performed and documented my assessment and findings in the medical record. No active bleeding noted. Continue procrit and monitor CBC. Lesa Singh May 22, 2017 12:58 Tyrone Lopez MD May 22, 2017 17:11
[2017-05-22 15:46] LABS: AUTOMATED NEUTROPHIL # 16.6 TH/MM3 (1.8-7.7); BASOPHIL % 0.2 % (0.0-2.0); EOSINOPHIL # 0.3 TH/MM3 (0-0.4); EOSINOPHIL % 1.7 % (0.0-4.0); HEMATOCRIT 28.6 % (35.0-46.0); LYMPHOCYTE # 2.3 TH/MM3 (1.0-4.8); MEAN CELL VOLUME 93.8 FL (80.0-100.0); MEAN CORPUSCULAR HGB CONC 31.9 % (32.0-36.0); MONO % 6.6 % (0.0-8.0); NEUT % 80.5 % (16.0-70.0); PLATELET COUNT 457 TH/MM3 (150-450); RED BLOOD COUNT 3.05 MIL/MM3 (4.00-5.30); RED CELL DISTRIBUTION WIDTH 16.9 % (11.6-17.2); WHITE BLOOD COUNT 20.5 TH/MM3 (4.0-11.0)
[2017-05-22 15:54] LABS: HEMO FLAGS AUTO DIFF
[2017-05-22 16:00] VITALS: BP 152/62; PULSE 80; RESP 16; TEMP 99; O2SAT 95
[2017-05-22 16:46] LABS: BANDS 2 % (0-6); MYELOCYTES 2 % (0-0); NEUTROPHIL # MANUAL DIFF 17.6 TH/MM3 (1.8-7.7); POLYS (SEG NEUTROPHILS) 82 % (16-70); WBC DIFF SAMPLE 100
[2017-05-22 16:47] LABS: PLATELET ESTIMATE SMEAR NORMAL (NORMAL); PLATELET MORPHOLOGY NORMAL (NORMAL); SCAN/DIFF FINAL DIFF MANUAL
[2017-05-22 16:49] LABS: KERATOCYTES OCC (NORMAL); OVALOCYTES 1+ (NORMAL); POLYCHROMASIA 2.6 % (0.0-1.9)
[2017-05-22] MEDS: QUEtiapine FUMARATE 25 MG TAB PO SCH (20:04)
[2017-05-22] MEDS: PANTOPRAZOLE SOD 20 MG DELAYED RELEASE TAB PO SCH (20:04)
[2017-05-22 20:15] VITALS: BP 157/75; PULSE 76; RESP 17; TEMP 98.3; O2SAT 91
[2017-05-23 00:25] VITALS: BP 141/62; PULSE 71; RESP 17; TEMP 99; O2SAT 94
[2017-05-23] MEDS: metroNIDAZOLE 500 MG TAB PO SCH ×4 (03:35→20:00)
[2017-05-23] MEDS: LEVOTHYROXINE SODIUM 125 MCG TAB PO SCH (03:36)
[2017-05-23 04:15] VITALS: BP 130/63; PULSE 71; RESP 17; TEMP 96.4; O2SAT 91
[2017-05-23 05:48] LABS: C. DIFF EPI 027 PRESUMPTIVE NEGATIVE (NEGATIVE)
[2017-05-23 08:00] VITALS: BP 153/69; PULSE 72; RESP 16; TEMP 98.4; O2SAT 94
[2017-05-23] MEDS: FUROSEMIDE 20 MG TAB PO SCH (08:58)
[2017-05-23] MEDS: ESCITALOPRAM OXALATE 10 MG TAB PO SCH (08:58)
[2017-05-23] MEDS: LACTOBACILLUS ACIDOPHILUS TAB PO SCH ×2 (08:58→20:00)
[2017-05-23] MEDS: NIFEdipine 60 MG SUSTAINED RELEASE TAB PO SCH ×2 (08:58→20:00)
[2017-05-23] MEDS: SODIUM CHLORIDE 0.9% FLUSH 10 ML FLUSH IV FLUSH SCH ×2 (08:58→20:00)
[2017-05-23] MEDS: AZITHROMYCIN 250 MG TAB PO SCH (08:58)
[2017-05-23] MEDS: CIPROFLOXACIN 500 MG TAB PO SCH ×2 (08:58→20:00)
--- NOTE | 2017-05-23 09:23 | PD.ONC.PN ---
Subjective Subjective Remarks Afebrile overnight. Patient resting in bed in nad. Wants to go back to SNF. Objective Data Date Time Temp Pulse Resp B/P (MAP) Pulse Ox O2 Delivery O2 Flow Rate FiO2 05/23/17 08:04 Room Air 05/23/17 08:00 98.4 72 16 153/69 (97) 94 05/23/17 04:15 96.4 71 17 130/63 (85) 91 05/23/17 00:25 99.0 71 17 141/62 (88) 94 05/22/17 20:25 Room Air 05/22/17 20:15 98.3 76 17 157/75 (102) 91 05/22/17 16:00 99.0 80 16 152/62 (92) 95 05/22/17 12:00 97.1 77 14 143/61 (88) 96 05/23/17 05/23/17 05/23/17 07:00 15:00 23:00 Intake Total 50 ml Balance 50 ml Result Diagram: 05/22/17 1500 05/20/17 0609 Laboratory Results Laboratory Tests Test 05/22/17 15:00 05/23/17 04:50 White Blood Count 20.5 TH/MM3 Red Blood Count 3.05 MIL/MM3 Hemoglobin 9.1 GM/DL Hematocrit 28.6 % Mean Corpuscular Volume 93.8 FL Mean Corpuscular Hemoglobin 30.0 PG Mean Corpuscular Hemoglobin Concent 31.9 % Red Cell Distribution Width 16.9 % Platelet Count 457 TH/MM3 Mean Platelet Volume 6.9 FL Neutrophils (%) (Auto) 80.5 % Lymphocytes (%) (Auto) 11.0 % Monocytes (%) (Auto) 6.6 % Eosinophils (%) (Auto) 1.7 % Basophils (%) (Auto) 0.2 % Neutrophils # (Auto) 16.6 TH/MM3 Lymphocytes # (Auto) 2.3 TH/MM3 Monocytes # (Auto) 1.3 TH/MM3 Eosinophils # (Auto) 0.3 TH/MM3 Basophils # (Auto) 0.0 TH/MM3 CBC Comment AUTO DIFF Differential Total Cells Counted 100 Neutrophils % (Manual) 82 % Band Neutrophils % 2 % Lymphocytes % 9 % Monocytes % 5 % Neutrophils # (Manual) 17.6 TH/MM3 Myelocytes 2 % Differential Comment FINAL DIFF MANUAL Platelet Estimate NORMAL Platelet Morphology Comment NORMAL Polychromasia 2.6 % Ovalocytes 1+ Keratocytes OCC Stool C. difficile Toxin (PCR) NEGATIVE Stl C. difficile Toxin Epiderm 027 PRESUMPTIVE NEGATIVE Culture Results Microbiology Date/Time Source Procedure Growth Status 05/20/17 18:00 Urine Catheterized Urine Urine Culture - Final Escherichia Coli Complete Administered Medications Medications (Trade) Dose Ordered Sig/Marin Route PRN Reason Start Time Stop Time Status Last Admin Dose Admin Sodium Chloride (NS Flush) 2 ml BID IV FLUSH 05/14/17 09:00 05/23/17 08:58 Ondansetron HCl (Zofran Inj) 4 mg Q6H PRN IVP NAUSEA OR VOMITING 05/13/17 23:15 05/21/17 20:06 Acetaminophen (Tylenol) 650 mg Q6H PRN PO FEVER/PAIN SCALE 1 TO 2 05/13/17 23:15 05/17/17 11:18 Acetaminophen/ Hydrocodone Bitart ([place] 5-325 Mg) 1 tab Q4H PRN PO PAIN SCALE 3 TO 5 05/13/17 23:15 05/18/17 17:03 Escitalopram Oxalate (Lexapro) 10 mg DAILY PO 05/14/17 09:00 05/23/17 08:58 Epoetin Floyd (Epogen Inj) 20,000 units EVERY OTHER DAY SQ 05/14/17 13:15 05/22/17 10:46 Levothyroxine Sodium (Synthroid) 125 mcg DAILY@0600 PO 05/16/17 06:00 05/23/17 03:36 Quetiapine Fumarate (SEROquel) 25 mg HS PO 05/15/17 21:00 05/22/17 20:04 Pantoprazole Sodium (Protonix) 20 mg Q24H PO 05/16/17 21:00 05/22/17 20:04 Enalaprilat (Vasotec Inj) 2.5 mg Q6H PRN IV PUSH bp>160/90 05/18/17 00:15 05/21/17 03:47 Furosemide (Lasix) 20 mg DAILY PO 05/18/17 15:30 05/23/17 08:58 Metronidazole (Flagyl) 500 mg Q6H PO 05/19/17 15:00 05/23/17 08:58 Azithromycin (Zithromax) 500 mg DAILY PO 05/22/17 09:00 05/23/17 08:58 Lactobacillus Acidophilus (Lactinex) 1 tab Q12HR PO 05/21/17 21:00 05/23/17 08:58 Nifedipine (Procardia Xl) 60 mg Q12HR PO 05/21/17 21:00 05/23/17 08:58 Ciprofloxacin (Cipro) 500 mg Q12HR PO 05/23/17 09:00 05/25/17 22:00 05/23/17 08:58 Objective Remarks GENERAL: Elderly female upright in bed in nad. SKIN: Warm and dry. HEAD: Normocephalic. EYES: No injection or drainage. NECK: Supple, trachea midline. CARDIOVASCULAR: +S1/S2 RESPIRATORY: Breath sounds equal bilaterally. No accessory muscle use. GASTROINTESTINAL: Abdomen soft, non-tender, nondistended. EXTREMITIES: No cyanosis NEUROLOGICAL: awake and alert. moving extremities. normal speech. Assessment/Plan Problem List: (1) Normocytic anemia ICD Codes: D64.9 - Anemia, unspecified Plan: --reported melanotic stool. --EGD showed esophagitis/gastritis --large hematoma left leg. --is a [place] and does not want blood transfusion. --on Venofer infusion. --receives Procrit qod (2) Right leg DVT ICD Codes: I82.401 - Acute embolism and thrombosis of unspecified deep veins of right lower extremity Plan: --Due to anemia/bleeding --not a candidate for anticoagulation at this point --Monitor closely for recurrent clot. --repeat u/s shows no DVT Assessment 81y/o [place] brought into to the emergency room with a drop in hemoglobin as well as elevated INR. Recent right lower extremity deep venous thrombosis. Hypertension. Hyperlipidemia. Coronary artery bypass graft surgery. Arthroscopic right knee surgery. Coronary stent placement. Bilateral tubal ligation. Plan 1. monitor CBC 2. clear for discharge Attending Statement The exam, history, and the medical decision-making described in the above note were completed with the assistance of the mid-level provider. I reviewed and agree with the findings presented. I attest that I had a [id number] encounter with the patient on the same day, and personally performed and documented my assessment and findings in the medical record. Feeling better. No report of bleeding. Left thigh hematoma improved. Hgb up to 9.1. Continue procrit while she is in the hospital but can be d/c from hematology standpoint. Not candidate for anticoagulation due to bleeding and her provoke DVT was more than 6 months ago. Lesa Singh May 23, 2017 09:23 Tyrone Lopez MD May 23, 2017 17:10
--- NOTE | 2017-05-23 09:52 | HHI.PR ---
Subjective Remarks Follow-up lower extremity DVT/acute pseudomembranous colitis/GI bleed 05/20/17-patient seen and examined, denies any GI bleed. No acute event overnight. Hemoglobin dropping 05/21/17-patient seen and examined, some confusion per nurse report. UA positive. Currently afebrile. by the bedside. Patient states she would like to be discharged home. 05/22/17-patient seen and examined, Tmax 100.5 at midnight otherwise currently afebrile. Per patient is much more alert and oriented. She had one episode of loose stool yesterday. 05/23/17-patient seen and examined, afebrile. Pleasantly confused. No acute event overnight. by the bedside. WBC trending up. Hemoglobin stable and no report of GI bleed. Objective Vitals Vital Signs Date Time Temp Pulse Resp B/P (MAP) Pulse Ox O2 Delivery O2 Flow Rate FiO2 05/23/17 08:04 Room Air 05/23/17 08:00 98.4 72 16 153/69 (97) 94 05/23/17 04:15 96.4 71 17 130/63 (85) 91 05/23/17 00:25 99.0 71 17 141/62 (88) 94 05/22/17 20:25 Room Air 05/22/17 20:15 98.3 76 17 157/75 (102) 91 05/22/17 16:00 99.0 80 16 152/62 (92) 95 05/22/17 12:00 97.1 77 14 143/61 (88) 96 I/O 05/22/17 05/22/17 05/22/17 05/23/17 05/23/17 05/23/17 07:00 15:00 23:00 07:00 15:00 23:00 Intake Total 556 ml 50 ml Balance 556 ml 50 ml Intake Oral 456 ml 50 ml IV Total 100 ml # Voids 1 3 3 1 # Bowel Movements 2 2 1 Result Diagram: 05/22/17 1500 05/20/17 0609 Objective Remarks GENERAL: NAD SKIN: Warm and dry. HEAD: Normocephalic. EYES: No scleral icterus. No injection or drainage. NECK: Supple, trachea midline. No JVD or lymphadenopathy. CARDIOVASCULAR: Regular rate and rhythm without murmurs, gallops, or rubs. RESPIRATORY: Breath sounds equal bilaterally. No accessory muscle use. GASTROINTESTINAL: Abdomen soft, non-tender, nondistended. MUSCULOSKELETAL: No cyanosis, or edema. BACK: Nontender without obvious deformity. No CVA tenderness. 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 difficile C. difficile PCR negative Currently on Flagyl secondary to pathology finding of mild acute pseudomembranous colitis, however we'll discontinued today Anemia: Secondary to acute blood loss. Appreciate input from hematology and patient is Status post iv iron. Chronic Anticoagulation: h/o DVT on Coumadin, supra therapeutic s/p Vitamin K. Continue to Hold Coumadin for active bleeding. Hematology following. Appreciate assistance. Not a candidate for oral anticoagulation secondary to GI bleed at this time Leukocytosis Likely secondary to a hematoma. Chest x-ray was small left basilar atelectasis. Possibly secondary to left lower lobe pneumonia on chest x-ray versus C. difficile colitis. Possible left lower lobe pneumonia. Should complete azithromycin today Escherichia coli Urinary tract infection Currently on Cipro SEBASTIAN: Resolved with IV fluid hydration Yarsani: Pt confirms she is Jehova's Witness and does not want to receive any form of blood products. Suspected dementia. reports dementia symptoms at baseline. Soft tissue injury with ecchymosis of left thigh. No tenderness with hip joint. No broken skin. Continue to monitor. -CT with hematoma. Ultrasound negative for DVT. Appreciate hematology assistance. Hospital-induced delirium. Resolved. Continue Seroquel. Elevated CK. Resolved. Hypokalemia. Replaced again. cont monitor Accelerated Hypertension. Continue home blood pressure meds. DVT Prophylaxis: Pharmacologic contraindication secondary to anemia, hematoma. Discharge Planning Likely discharge to SNF 05/24/17 Juwan Sharpe MD May 23, 2017 09:52
[2017-05-23] MEDS: ONDANSETRON HCL 4 MG/2 ML VIAL IVP PRN (11:18)
[2017-05-23 12:00] VITALS: BP 135/63; PULSE 76; RESP 18; TEMP 97; O2SAT 92
[2017-05-23 16:00] VITALS: BP 139/66; PULSE 70; RESP 18; TEMP 98; O2SAT 94
[2017-05-23] MEDS: QUEtiapine FUMARATE 25 MG TAB PO SCH (20:00)
[2017-05-23] MEDS: PANTOPRAZOLE SOD 20 MG DELAYED RELEASE TAB PO SCH (20:00)
[2017-05-23 20:25] VITALS: BP 162/73; PULSE 78; RESP 17; TEMP 98.4; O2SAT 94
[2017-05-24 00:15] VITALS: BP 117/58; PULSE 76; RESP 17; TEMP 97.5; O2SAT 92
[2017-05-24] MEDS: LEVOTHYROXINE SODIUM 125 MCG TAB PO SCH (04:03)
[2017-05-24 04:20] VITALS: BP 124/88; PULSE 72; RESP 17; TEMP 96.5; O2SAT 94
[2017-05-24 07:32] LABS: AUTOMATED NEUTROPHIL # 11.1 TH/MM3 (1.8-7.7); BASOPHIL # 0.2 TH/MM3 (0-0.2); BASOPHIL % 1.3 % (0.0-2.0); EOSINOPHIL # 0.4 TH/MM3 (0-0.4); EOSINOPHIL % 2.6 % (0.0-4.0); HEMATOCRIT 26.9 % (35.0-46.0); LYMPH % 12.9 % (9.0-44.0); LYMPHOCYTE # 1.8 TH/MM3 (1.0-4.8); MEAN CELL VOLUME 95.2 FL (80.0-100.0); MEAN CORPUSCULAR HEMOGLOBIN 31.1 PG (27.0-34.0); MEAN CORPUSCULAR HGB CONC 32.7 % (32.0-36.0); MONO % 5.4 % (0.0-8.0); NEUT % 77.8 % (16.0-70.0); PLATELET COUNT 434 TH/MM3 (150-450); RED BLOOD COUNT 2.83 MIL/MM3 (4.00-5.30); RED CELL DISTRIBUTION WIDTH 18.5 % (11.6-17.2); WHITE BLOOD COUNT 14.3 TH/MM3 (4.0-11.0)
[2017-05-24 07:53] LABS: HEMO FLAGS AUTO DIFF
[2017-05-24 08:00] VITALS: BP 142/62; PULSE 72; RESP 18; TEMP 99.2; O2SAT 93
[2017-05-24] MEDS: CIPROFLOXACIN 500 MG TAB PO SCH (08:53)
[2017-05-24] MEDS: ESCITALOPRAM OXALATE 10 MG TAB PO SCH (08:53)
[2017-05-24] MEDS: NIFEdipine 60 MG SUSTAINED RELEASE TAB PO SCH (08:53)
[2017-05-24] MEDS: EPOETIN ALFA 20,000 UNITS/ML VIAL SQ SCH (08:53)
[2017-05-24] MEDS: LACTOBACILLUS ACIDOPHILUS TAB PO SCH (08:53)
[2017-05-24] MEDS: FUROSEMIDE 20 MG TAB PO SCH (08:53)
[2017-05-24] MEDS: SODIUM CHLORIDE 0.9% FLUSH 10 ML FLUSH IV FLUSH SCH (08:54)
[2017-05-24 09:21] LABS: BANDS 4 % (0-6); EOSINOPHILS 1 % (0-4); MYELOCYTES 1 % (0-0); NEUTROPHIL # MANUAL DIFF 12.4 TH/MM3 (1.8-7.7); POLYS (SEG NEUTROPHILS) 82 % (16-70); WBC DIFF SAMPLE 100
[2017-05-24 09:22] LABS: PLATELET ESTIMATE SMEAR HIGH (NORMAL); POLYCHROMASIA 2.9 % (0.0-1.9)
[2017-05-24 09:24] LABS: PLATELET MORPHOLOGY NORMAL (NORMAL); SCAN/DIFF FINAL DIFF MANUAL; TOXIC GRANULATION 2+ (NORMAL)
--- NOTE | 2017-05-24 09:31 | RADRPT ---
EXAM DATE/TIME: 05/24/2017 08:15 [place] COMPARISON: No previous studies available for comparison. INDICATIONS : Right arm swelling. MEDICAL HISTORY : Congestive heart failure. Hypercholesterolemia. Osteoarthritis. Thyroid disease. HTN. Irregular heart beat. Clotting problems. Depression. Bactremia. Cellulitis. Poly Neuropathy. SURGICAL HISTORY : CABG Coronary artery stent. Tubal ligation. ENCOUNTER: Initial ACUITY: 1 day PAIN SCORE: 3/10 LOCATION: Right arm. FINDINGS: There is spontaneous flow documented in the brachial, basilic, cephalic, axillary, and subclavian vei ns. The vessels are compressible and augmentation response is documented. No filling defects are se en. The flow is phasic with respiration. Direction of flow in the jugular vein is caudal. There is superficial colitis involving the cephalic vein in the forearm CONCLUSION: 1. Superficial thrombosis as above. No evidence of deep venous thrombosis Robin Russell MD on May 24, 2017 at 9:28 Board Certified Radiologist. This report was verified electronically.
[2017-05-24] MEDS ORDERED: NIFE60TA8 PO (09:51)
[2017-05-24] MEDS ORDERED: CIPR-9 PO (09:51)
[2017-05-24] MEDS ORDERED: HYDR-3516 PO (09:51)
[2017-05-24] MEDS ORDERED: LACT PO (09:51)
[2017-05-24] MEDS ORDERED: PANT20 PO (09:51)
[2017-05-24] MEDS ORDERED: QUET1TAB7 PO (09:51)
--- NOTE | 2017-05-24 09:55 | HHI.PR ---
Subjective Remarks Follow-up lower extremity DVT/acute pseudomembranous colitis/GI bleed 05/20/17-patient seen and examined, denies any GI bleed. No acute event overnight. Hemoglobin dropping 05/21/17-patient seen and examined, some confusion per nurse report. UA positive. Currently afebrile. by the bedside. Patient states she would like to be discharged home. 05/22/17-patient seen and examined, Tmax 100.5 at midnight otherwise currently afebrile. Per patient is much more alert and oriented. She had one episode of loose stool yesterday. 05/23/17-patient seen and examined, afebrile. Pleasantly confused. No acute event overnight. by the bedside. WBC trending up. Hemoglobin stable and no report of GI bleed 05/24/17-patient seen and examined, stable and afebrile. Looking for discharge to SNF Objective Vitals Vital Signs Date Time Temp Pulse Resp B/P (MAP) Pulse Ox O2 Delivery O2 Flow Rate FiO2 05/24/17 08:16 Room Air 05/24/17 08:00 99.2 72 18 142/62 (88) 93 05/24/17 04:20 96.5 72 17 124/88 (100) 94 05/24/17 00:15 97.5 76 17 117/58 (77) 92 05/23/17 20:25 98.4 78 17 162/73 (102) 94 05/23/17 20:10 Room Air 05/23/17 16:00 98.0 70 18 139/66 (90) 94 05/23/17 12:00 97.0 76 18 135/63 (87) 92 I/O 05/23/17 05/23/17 05/23/17 05/24/17 05/24/17 05/24/17 07:00 15:00 23:00 07:00 15:00 23:00 Intake Total 50 ml 720 ml 100 ml Balance 50 ml 720 ml 100 ml Intake Oral 50 ml 720 ml 100 ml # Voids 3 3 1 2 # Bowel Movements 2 3 Result Diagram: 05/24/17 0648 05/20/17 0609 Imaging Last Impressions Upper Extremity Ultrasound 05/24/17 0000 Signed Impressions: Service Date/Time: Wednesday, May 24, 2017 08:15 - CONCLUSION: 1. Superficial thrombosis as above. No evidence of deep venous thrombosis Robin Russell MD Chest X-Ray 05/19/17 0000 Signed Impressions: Service Date/Time: Friday, May 19, 2017 12:23 - CONCLUSION: 1. COPD changes. Stable compared to previous dated 05/18/17. Luisito Arango MD Lower Extremity Ultrasound 05/16/17 0000 Signed Impressions: Service Date/Time: Tuesday, May 16, 2017 10:01 - CONCLUSION: No DVT in either leg. Juwan Gonzalez MD Pelvis CT 05/15/17 0000 Signed Impressions: Service Date/Time: Monday, May 15, 2017 15:24 - CONCLUSION: Hematoma as described above beginning in the psoas on the left extending down the iliopsoas into the femur. Xavi Arango MD FACR Lower Extremity CT 05/15/17 0000 Signed Impressions: Service Date/Time: Monday, May 15, 2017 15:24 - CONCLUSION: Iliopsoas hematoma as described above. Xavi Arango MD FACR Objective Remarks GENERAL: NAD SKIN: Warm and dry. HEAD: Normocephalic. EYES: No scleral icterus. No injection or drainage. NECK: Supple, trachea midline. No JVD or lymphadenopathy. CARDIOVASCULAR: Regular rate and rhythm without murmurs, gallops, or rubs. RESPIRATORY: Breath sounds equal bilaterally. No accessory muscle use. GASTROINTESTINAL: Abdomen soft, non-tender, nondistended. MUSCULOSKELETAL: No cyanosis, or edema. BACK: Nontender without obvious deformity. No CVA tenderness. 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 difficile C. difficile PCR negative Anemia: Secondary to acute blood loss. Appreciate input from hematology and patient is Status post iv iron. Chronic Anticoagulation: h/o DVT on Coumadin, supra therapeutic s/p Vitamin K. Continue to Hold Coumadin for active bleeding. Hematology following. Appreciate assistance. Not a candidate for oral anticoagulation secondary to GI bleed at this time Leukocytosis Likely secondary to a hematoma. Chest x-ray was small left basilar atelectasis. Possibly secondary to left lower lobe pneumonia on chest x-ray versus C. difficile colitis. Possible left lower lobe pneumonia. Should complete azithromycin today Escherichia coli Urinary tract infection Currently on Cipro SEBASTIAN: Resolved with IV fluid hydration Latter day: Pt confirms she is Jehova's Witness and does not want to receive any form of blood products. Suspected dementia. reports dementia symptoms at baseline. Soft tissue injury with ecchymosis of left thigh. No tenderness with hip joint. No broken skin. Continue to monitor. -CT with hematoma. Ultrasound negative for DVT. Appreciate hematology assistance. Superficial thrombosis right upper extremity: Confirmed by Doppler 05/24/17. Conservative management Hospital-induced delirium. Resolved. Continue Seroquel. Elevated CK. Resolved. Hypokalemia. Replaced again. cont monitor Accelerated Hypertension. Continue home blood pressure meds. DVT Prophylaxis: Pharmacologic contraindication secondary to anemia, hematoma. Juwan Sharpe MD May 24, 2017 09:55
--- NOTE | 2017-05-24 09:59 | HHI.DS ---
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 INR 05/12/17 4.57, 3.9 on 05/11/17. Hgb 7.7, previously 12.6 on 05/10/17. Hgb currently 6.8. INR 1.9. BP 129/59, HR 90, O2 sat 98% on RA, Temp 99.0. Creatinine 2.01, produces 0.80 on 03/15/17. GI consulted by ER physician, plan is for EGD/Colonoscopy in am. S/p Vitamin K in ER. Pt confirms she does not want transfusion of blood products. CBC/BMP: 05/24/17 0648 05/20/17 0609 Significant Findings Laboratory Tests Test 05/22/17 15:00 05/23/17 04:50 05/24/17 06:48 White Blood Count 20.5 TH/MM3 (4.0-11.0) 14.3 TH/MM3 (4.0-11.0) Red Blood Count 3.05 MIL/MM3 (4.00-5.30) 2.83 MIL/MM3 (4.00-5.30) Hemoglobin 9.1 GM/DL (11.6-15.3) 8.8 GM/DL (11.6-15.3) Hematocrit 28.6 % (35.0-46.0) 26.9 % (35.0-46.0) Mean Corpuscular Hemoglobin Concent 31.9 % (32.0-36.0) Platelet Count 457 TH/MM3 (150-450) Mean Platelet Volume 6.9 FL (7.0-11.0) Neutrophils (%) (Auto) 80.5 % (16.0-70.0) 77.8 % (16.0-70.0) Neutrophils # (Auto) 16.6 TH/MM3 (1.8-7.7) 11.1 TH/MM3 (1.8-7.7) Monocytes # (Auto) 1.3 TH/MM3 (0-0.9) Neutrophils % (Manual) 82 % (16-70) 82 % (16-70) Neutrophils # (Manual) 17.6 TH/MM3 (1.8-7.7) 12.4 TH/MM3 (1.8-7.7) Myelocytes 2 % (0-0) 1 % (0-0) Polychromasia 2.6 % (0.0-1.9) 2.9 % (0.0-1.9) Ovalocytes 1+ (NORMAL) Keratocytes OCC (NORMAL) Red Cell Distribution Width 18.5 % (11.6-17.2) Lymphocytes % 8 % (9-44) Toxic Granulation 2+ (NORMAL) Platelet Estimate HIGH (NORMAL) Imaging Last Impressions Upper Extremity Ultrasound 05/24/17 0000 Signed Impressions: Service Date/Time: Wednesday, May 24, 2017 08:15 - CONCLUSION: 1. Superficial thrombosis as above. No evidence of deep venous thrombosis Robin Russell MD Chest X-Ray 05/19/17 0000 Signed Impressions: Service Date/Time: Friday, May 19, 2017 12:23 - CONCLUSION: 1. COPD changes. Stable compared to previous dated 05/18/17. Luisito Arango MD Lower Extremity Ultrasound 05/16/17 0000 Signed Impressions: Service Date/Time: Tuesday, May 16, 2017 10:01 - CONCLUSION: No DVT in either leg. Juwan Gonzalez MD Pelvis CT 05/15/17 0000 Signed Impressions: Service Date/Time: Monday, May 15, 2017 15:24 - CONCLUSION: Hematoma as described above beginning in the psoas on the left extending down the iliopsoas into the femur. Xavi Arango MD FACR Lower Extremity CT 05/15/17 0000 Signed Impressions: Service Date/Time: Monday, May 15, 2017 15:24 - CONCLUSION: Iliopsoas hematoma as described above. Xavi Arango MD FACR PE at Discharge GENERAL: NAD SKIN: Warm and dry. HEAD: Normocephalic. EYES: No scleral icterus. No injection or drainage. NECK: Supple, trachea midline. No JVD or lymphadenopathy. CARDIOVASCULAR: Regular rate and rhythm without murmurs, gallops, or rubs. RESPIRATORY: Breath sounds equal bilaterally. No accessory muscle use. GASTROINTESTINAL: Abdomen soft, non-tender, nondistended. MUSCULOSKELETAL: No cyanosis, or edema. BACK: Nontender without obvious deformity. No CVA tenderness. Hospital Course Patient admitted for suspected GI bleed for which gastroenterology was consulted and she underwent EGD and colonoscopy. She also was found to have anemia secondary to acute blood loss however secondary to patient's sabianism belief she was not transfused packed red blood cell, instead hematology was consulted and patient was transfused IV iron. All oral anticoagulations were held. Patient was started on IV antibiotic secondary to acute pseudomembranous colitis found on colonoscopy. She was also started on treatment for pneumonia which she completed. Patient was diagnosed with UTI and started on Cipro which she will complete for 7 more days on discharge. Physical therapy was consulted. Pt Condition on Discharge: Stable Discharge Disposition: Discharge to SNF Discharge Time: > 30 minutes Discharge Instructions DIET: Follow Instructions for: Heart Healthy Diet Activities you can perform: Regular-No Restrictions Follow up Referrals: PCP Follow-up - 2-3 Days New Medications: Ciprofloxacin (Cipro) 500 Mg Tab 500 MG PO Q12HR for Infection, #14 TAB Hydrocodone-Acetaminophen (Hydrocodone-Acetaminophen) 5-325 mg Tab 1 TAB PO Q4H PRN for PAIN SCALE 3 TO 5, #10 TAB Lactobacillus Acidophilus (Acidophilus/l-Sporogenes) 35 Million Cell-25 Million Cell Tab 1 TAB PO Q12HR for Infection, #60 TAB Nifedipine ER 24 HR (Nifedipine ER 24 HR) 60 Mg Tab 60 MG PO Q12HR for Blood Pressure Management, #60 TAB 3 Refills Pantoprazole (Protonix) 20 Mg Tab 20 MG PO Q24H for Prevent Stress Ulcers, #30 TAB Quetiapine (Quetiapine) 25 Mg Tab 25 MG PO HS for Control Depression, #30 TAB Continued Medications: Docusate Sodium (Docusate Sodium) 100 Mg Cap 100 MG PO BID for Prevent Constipation, #60 CAP 0 Refills Escitalopram (Escitalopram) 10 Mg Tab 10 MG PO DAILY, #30 TAB 0 Refills Furosemide (Furosemide) 20 Mg Tab 20 MG PO DAILY, #30 TAB 0 Refills Levothyroxine (Levothyroxine) 125 Mcg Tab 125 MCG PO DAILY for Thyroid, #30 TAB 0 Refills Multiple Vitamin (Multiple Vitamin) 1 Tab 1 TAB PO DAILY for Nutritional Supplement, TAB 0 Refills Naproxen (Naproxen) 250 Mg Tab 250 MG PO BID, #60 TAB 0 Refills Pravastatin (Pravastatin) 20 Mg Tab 20 MG PO DAILY for Cholesterol Management, #30 TAB 0 Refills Discontinued Medications: Cyclobenzaprine (Flexeril) 5 Mg Tab 5 MG PO TID for Muscle Spasm, #90 TAB 0 Refills Fludrocortisone (Fludrocortisone) 0.1 Mg Tab 0.1 MG PO DAILY, #30 TAB 0 Refills Gabapentin (Gabapentin) 100 Mg Cap 100 MG PO BID, #60 CAP 0 Refills Gabapentin (Gabapentin) 100 Mg Cap 200 MG PO HS, #30 CAP 0 Refills Oxycodone-Acetaminophen (Oxycodone-Acetaminophen) 5-325 mg Tab 1 TAB PO Q4H PRN for PAIN SCALE 4 TO 10, TAB 0 Refills Pantoprazole (Pantoprazole) 40 Mg Tab 40 MG PO DAILY for Reflux, #30 TAB 0 Refills Warfarin (Warfarin) 3 Mg Tab 3 MG PO sun,,th for Blood Clot Prevention, #30 TAB 0 Refills Warfarin (Warfarin) 6 Mg Tab 6 MG PO mon,wed,fri,sat for Blood Clot Prevention, #30 TAB 0 Refills Juwan Sharpe MD May 24, 2017 09:59
--- NOTE | 2017-05-24 10:03 | PD.ONC.PN ---
Subjective Subjective Remarks Afebrile overnight Pt ready to be discharged today Objective Data Date Time Temp Pulse Resp B/P (MAP) Pulse Ox O2 Delivery O2 Flow Rate FiO2 05/24/17 08:16 Room Air 05/24/17 08:00 99.2 72 18 142/62 (88) 93 05/24/17 04:20 96.5 72 17 124/88 (100) 94 05/24/17 00:15 97.5 76 17 117/58 (77) 92 05/23/17 20:25 98.4 78 17 162/73 (102) 94 05/23/17 20:10 Room Air 05/23/17 16:00 98.0 70 18 139/66 (90) 94 05/23/17 12:00 97.0 76 18 135/63 (87) 92 05/24/17 05/24/17 05/24/17 07:00 15:00 23:00 Intake Total 100 ml Balance 100 ml Result Diagram: 05/24/17 0648 05/20/17 0609 Laboratory Results Laboratory Tests Test 05/24/17 06:48 White Blood Count 14.3 TH/MM3 Red Blood Count 2.83 MIL/MM3 Hemoglobin 8.8 GM/DL Hematocrit 26.9 % Mean Corpuscular Volume 95.2 FL Mean Corpuscular Hemoglobin 31.1 PG Mean Corpuscular Hemoglobin Concent 32.7 % Red Cell Distribution Width 18.5 % Platelet Count 434 TH/MM3 Mean Platelet Volume 7.1 FL Neutrophils (%) (Auto) 77.8 % Lymphocytes (%) (Auto) 12.9 % Monocytes (%) (Auto) 5.4 % Eosinophils (%) (Auto) 2.6 % Basophils (%) (Auto) 1.3 % Neutrophils # (Auto) 11.1 TH/MM3 Lymphocytes # (Auto) 1.8 TH/MM3 Monocytes # (Auto) 0.8 TH/MM3 Eosinophils # (Auto) 0.4 TH/MM3 Basophils # (Auto) 0.2 TH/MM3 CBC Comment AUTO DIFF Differential Total Cells Counted 100 Neutrophils % (Manual) 82 % Band Neutrophils % 4 % Lymphocytes % 8 % Monocytes % 4 % Eosinophils % 1 % Neutrophils # (Manual) 12.4 TH/MM3 Myelocytes 1 % Differential Comment FINAL DIFF MANUAL Toxic Granulation 2+ Platelet Estimate HIGH Platelet Morphology Comment NORMAL Polychromasia 2.9 % Imaging Studies Last 24 hours Impressions Upper Extremity Ultrasound 05/24/17 0000 Signed Impressions: Service Date/Time: Wednesday, May 24, 2017 08:15 - CONCLUSION: 1. Superficial thrombosis as above. No evidence of deep venous thrombosis Robin Russell MD Administered Medications Medications (Trade) Dose Ordered Sig/Marin Route PRN Reason Start Time Stop Time Status Last Admin Dose Admin Sodium Chloride (NS Flush) 2 ml BID IV FLUSH 05/14/17 09:00 05/24/17 08:54 Ondansetron HCl (Zofran Inj) 4 mg Q6H PRN IVP NAUSEA OR VOMITING 05/13/17 23:15 05/23/17 11:18 Acetaminophen (Tylenol) 650 mg Q6H PRN PO FEVER/PAIN SCALE 1 TO 2 05/13/17 23:15 05/17/17 11:18 Acetaminophen/ Hydrocodone Bitart ([place] 5-325 Mg) 1 tab Q4H PRN PO PAIN SCALE 3 TO 5 05/13/17 23:15 05/18/17 17:03 Escitalopram Oxalate (Lexapro) 10 mg DAILY PO 05/14/17 09:00 05/24/17 08:53 Epoetin Floyd (Epogen Inj) 20,000 units EVERY OTHER DAY SQ 05/14/17 13:15 05/24/17 08:53 Levothyroxine Sodium (Synthroid) 125 mcg DAILY@0600 PO 05/16/17 06:00 05/24/17 04:03 Quetiapine Fumarate (SEROquel) 25 mg HS PO 05/15/17 21:00 05/23/17 20:00 Pantoprazole Sodium (Protonix) 20 mg Q24H PO 05/16/17 21:00 05/23/17 20:00 Enalaprilat (Vasotec Inj) 2.5 mg Q6H PRN IV PUSH bp>160/90 05/18/17 00:15 05/21/17 03:47 Furosemide (Lasix) 20 mg DAILY PO 05/18/17 15:30 05/24/17 08:53 Lactobacillus Acidophilus (Lactinex) 1 tab Q12HR PO 05/21/17 21:00 05/24/17 08:53 Nifedipine (Procardia Xl) 60 mg Q12HR PO 05/21/17 21:00 05/24/17 08:53 Ciprofloxacin (Cipro) 500 mg Q12HR PO 05/23/17 09:00 05/25/17 22:00 05/24/17 08:53 Objective Remarks GENERAL: Elderly female upright in bed applying lipstick SKIN: Warm and dry. HEAD: Normocephalic. EYES: No injection or drainage. NECK: Supple, trachea midline. CARDIOVASCULAR: +S1/S2 RESPIRATORY: Breath sounds equal bilaterally. No accessory muscle use. GASTROINTESTINAL: Abdomen soft, non-tender, nondistended. EXTREMITIES: No cyanosis NEUROLOGICAL: Awake and alert. moving extremities. normal speech. Assessment/Plan Problem List: (1) Normocytic anemia ICD Codes: D64.9 - Anemia, unspecified Plan: --reported melanotic stool. --EGD showed esophagitis/gastritis --large hematoma left leg. --is a [employer] and does not want blood transfusion. --on Venofer infusion. --receives Procrit qod (2) Right leg DVT ICD Codes: I82.401 - Acute embolism and thrombosis of unspecified deep veins of right lower extremity Plan: --Due to anemia/bleeding --not a candidate for anticoagulation at this point --Monitor closely for recurrent clot. --repeat u/s shows no DVT Assessment 81y/o [employer] brought into to the emergency room with a drop in hemoglobin as well as elevated INR. Recent right lower extremity deep venous thrombosis. Hypertension. Hyperlipidemia. Coronary artery bypass graft surgery. Arthroscopic right knee surgery. Coronary stent placement. Bilateral tubal ligation. Plan 1. CBC stable 2. Ultrasound of right upper extremity shows superficial clot. Recommend warm compresses 3. Okay for discharge from oncology standpoint Attending Statement The exam, history, and the medical decision-making described in the above note were completed with the assistance of the mid-level provider. I reviewed and agree with the findings presented. I attest that I had a [id number] encounter with the patient on the same day, and personally performed and documented my assessment and findings in the medical record. No bleeding noted. Left thigh hematoma improving. Hgb stable. Can be d/c from hematology standpoint. Discussed with pt's . He agrees with no anticoagulation due to pt's tendency of falling. Stella Alejandre May 24, 2017 10:03 Tyrone Lopez MD May 24, 2017 15:22
[2017-05-24 12:00] VITALS: BP 113/54; PULSE 70; RESP 18; TEMP 97.2; O2SAT 95
== END 2017-05-24 12:40 | DRG 377 ==
LOC: NEPE 21:18 → NEDA 23:22 → N03A 05-14 01:20 → HOCB 05-16 21:40
PROVIDERS: ADMIT Hospitalist; ATTEND Hospitalist
PROC: 0DBN8ZX Excision of Sigmoid Colon, Via Natural or Artificial Opening Endoscopic, Diagnostic (ICD-10-PCS; 2017-05-14)
PROC: 0DJ08ZZ Inspection of Upper Intestinal Tract, Via Natural or Artificial Opening Endoscopic (ICD-10-PCS; principal; 2017-05-14 14:20)
PROC: 0DBK8ZX Excision of Ascending Colon, Via Natural or Artificial Opening Endoscopic, Diagnostic (ICD-10-PCS; 2017-05-14 14:20)
DX: K92.2 Gastrointestinal hemorrhage, unspecified (principal); J18.9 Pneumonia, unspecified organism; N17.9 Acute kidney failure, unspecified; A04.7 Enterocolitis due to Clostridium difficile; N39.0 Urinary tract infection, site not specified; B96.20 Unspecified Escherichia coli [E. coli] as the cause of diseases classified elsewhere; D68.32 Hemorrhagic disorder due to extrinsic circulating anticoagulants; T45.515A Adverse effect of anticoagulants, initial encounter; I50.9 Heart failure, unspecified; D62 Acute posthemorrhagic anemia; M79.81 Nontraumatic hematoma of soft tissue; Z79.01 Long term (current) use of anticoagulants; Z86.718 Personal history of other venous thrombosis and embolism; G62.9 Polyneuropathy, unspecified; Z53.1 Procedure and treatment not carried out because of patient's decision for reasons of belief and group pressure; F32.9 Major depressive disorder, single episode, unspecified; E03.9 Hypothyroidism, unspecified; I10 Essential (primary) hypertension; Z66 Do not resuscitate; K20.9 Esophagitis, unspecified; K29.70 Gastritis, unspecified, without bleeding; K64.9 Unspecified hemorrhoids; K63.5 Polyp of colon; Z78.1 Physical restraint status; R41.0 Disorientation, unspecified; E87.6 Hypokalemia; E83.39 Other disorders of phosphorus metabolism; E78.5 Hyperlipidemia, unspecified; N39.3 Stress incontinence (female) (male); Z95.5 Presence of coronary angioplasty implant and graft; Z95.1 Presence of aortocoronary bypass graft
CPT/HCPCS: 71010; 71020; 72192; 73700; 76937; 80053; 80069; 80076; 81001; 82248; 82550; 82552; 82607; 82728; 83010; 83540; 83550; 83615; 83690; 83735; 84443; 85007; 85025; 85027; 85044; 85060; 85610; 85730; 86850; 86900; 86901; 86920; 87077; 87086; 87186; 87493; 88305; 93005; 93970; 93971; 94150; 94667; 94668; 96365; 96367; C9113; J0696; J1170; J1630; J1756; J2060; J2270; J2370; J2405; J3430; J7030; J7040; Q4081